=== PATIENT | male | born 1960 | race Caucasian/White ===

== ENCOUNTER 2017-02-07 20:12 | Inpatient (IN) | payer MEDICARE, MEDICAID ==
[2017-02-07 21:12] LABS: % BASOPHILS 2.5 % (0.0-2.0); % EOSINOPHILS 2.1 % (0.0-5.0); % LYMPHOCYTES 35.1 % (20.0-50.0); % MONOCYTES 5.8 % (2.0-10.0); % NEUTROPHILS 54.5 % (40.0-80.0); HEMATOCRIT 42.3 % (39.0-49.0); HEMOGLOBIN 13.8 gm/dL (13.2-17.3); MEAN CELL VOLUME 81.4 fl (80-99); MEAN CORPUSCULAR HEMOGLOBIN 26.5 pg (26.0-30.0); MEAN CORPUSCULAR HGB CONC 32.6 pg (28.0-36.0); MEAN PLATELET VOLUME 9.4 fl; NEUTROPHILE ABSOLUTE 3.2 Th/cmm (1.8-8.0); PLATELET COUNT 195 Th/cmm (150-400); RED CELL DISTRIBUTION WIDTH 14.1 % (11.5-20.0); WHITE BLOOD COUNT 5.7 Th/cmm (4.8-10.8)
--- NOTE | 2017-02-07 21:29 | ED Physician Chart ---
ED Chief Complaint/HPI - Patient Information Date Seen:: 02/07/17 Time Seen:: 21:20 Chief Complaint:: refusing care History of Present Illness:: refusing care and increased agitation at SNF Allergies:: Allergies Allergy/AdvReac Type Severity Reaction Status Date / Time No Known Allergies Allergy Verified 02/07/17 21:11 Vitals:: Vital Signs - 8 hr 02/07/17 20:30 Temp 97.9 F HR 75 RR 18 BP 114/85 O2 Sat % 96 Historian:: Medical Records Review:: Nurse's Note Reviewed, Transfer documents Reviewed ED Review of Systems - Review of Systems General/Constitutional: No fever, No chills Skin: No skin lesions Head: No headache Eyes: No loss of vision ENT: No earache Neck: No neck pain GI: No nausea, No vomiting Musculoskeletal: No bone or joint pain Psychiatric: Prior psych history Hematopoietic: No bruising, No lymphadenopathy Allergic/Immuno: No urticaria Neurological: No syncope ED Past Medical History - Past Medical History Past Medical History: HTN, PUD/GERD, Seizures, Other (quadriplegia) Family History: Other (no available) Social History: Care Facility Surgical History: other (unknown) Psychiatricy History: Depression, Schizophrenia Medication: Reviewed Family Medical History - Family Member Mother History Unknown: Yes ED Physical Exam - Physical Examination General/Constitutional: Awake, Well-developed, well-nourished, Alert Other Gen/Cons comments:: does not answer questions Head: Atraumatic Eyes: Lids, conjuctiva normal, PERRL Skin: No rash ENMT: External ears, nose nl Neck: No mass Respiratory: Nl effort/Exclusion, Clear to Auscultation Other Cardio Vascular comments:: heart sounds faint; pulse regular GI: No tenderness/rebounding/guarding, No organomegaly Other Extremities comments:: contracture of hands Other Neuro/Psych comments:: non verbal Misc: Normal back ED Labs/Radiology/EKG Results - Lab Results Results: Laboratory Results - last 24 hr 02/07/17 02/07/17 21:00 21:00 WBC 5.7 RBC 5.20 Hgb 13.8 Hct 42.3 MCV 81.4 MCH 26.5 MCHC Differential 32.6 RDW 14.1 Plt Count 195 MPV 9.4 Neutrophils % 54.5 Lymphocytes % 35.1 Monocytes % 5.8 Eosinophils % 2.1 Basophils % 2.5 H Sodium 134 L Potassium 3.5 Chloride 106 Carbon Dioxide 24.9 Anion Gap 6.6 L BUN 16 Creatinine 0.5 L Est GFR ( Amer) > 60.0 Est GFR (Non-Af Amer) > 60.0 BUN/Creatinine Ratio 32.0 Glucose 95 Calcium 9.2 Total Bilirubin 0.6 AST 21 ALT 11 Alkaline Phosphatase 76 Total Protein 7.4 Albumin 3.8 L Globulin 3.6 Albumin/Globulin Ratio 1.1 Triglycerides 62 Cholesterol 133 LDL Cholesterol Direct 97 HDL Cholesterol 31 - EKG Interpretations Rate & Rhythm: NSR; rate 92 Howells: normal ED Septic Shock - . Is Septic Shock (SBP<90, OR Lactate>4 mmol\L) present?: No - <6hrs of presentation: Vital Signs: Vital Signs - 8 hr 02/07/17 20:30 Temp 97.9 F HR 75 RR 18 BP 114/85 O2 Sat % 96 ED Reassessment (Disposition) - Reassessment Reassessment Condition:: Unchanged - Diagnosis Diagnosis:: schizophrenia; refusal of care; combative behavior; spastic quadriplegia - Patient Disposition Admitted to:: [facility] Admitting Medical Physician:: Wanda James Admitting Psych Physician:: Tracie Mccord Condition at Disposition:: Stable, Unchanged
[2017-02-07 21:36] LABS: ALB/GLOB RATIO 1.1 (1.0-1.8); ALKALINE PHOSPHATASE 76 U/L (34-104); ANION GAP 6.6 (7.0-16.0); BILIRUBIN,TOTAL 0.6 mg/dL (0.3-1.0); BUN - UREA NITROGEN 16 mg/dL (7-25); CALCIUM SERUM 9.2 mg/dL (8.6-10.3); CARBON DIOXIDE 24.9 mEq/L (21.0-31.0); CHLORIDE 106 mEq/L (98-107); CHOLESTEROL 133 mg/dL (<200); CREATININE - SERUM 0.5 mg/dL (0.7-1.3); GLUCOSE 95 mg/dL (70-105); POTASSIUM SERUM 3.5 mEq/L (3.5-5.1); SGOT 21 U/L (13-39); SGPT/ALT 11 U/L (7-52); SODIUM SERUM 134 mEq/L (136-145); TRIGLYCERIDES 62 mg/dL (<150)
[2017-02-07 22:59] VITALS: BP 132/78
[2017-02-07] MEDS ORDERED: Maalox 30 mL Cup PO PRN (23:08)
[2017-02-07] MEDS ORDERED: Fleet Enema 135 mL RC PRN (23:11)
--- NOTE | 2017-02-08 14:45 | Psychosocial Evaluation ---
DATE OF SERVICE: 02/08/2017 IDENTIFYING INFORMATION: The patient is a 56-year-old male. CHIEF COMPLAINT: No answer. HISTORY OF PRESENT ILLNESS: The patient was referred from a nursing facility because of agitation. The patient was a poor historian, unable to carry out conversation or telling me why he is here or answer any question, though his eyes were open and he was able to look at me, but would not answer any of my question. Apparently, has a history of being on psych medication including Depakote, Tegretol, and Seroquel and ____ of this medications were discontinued. I am not sure exactly why. The patient himself was unable to tell me and his next of kin actually is a cousin so. PAST PSYCHIATRIC HISTORY: Seemed like psychosis and mood disorder. ALLERGIES: The patient has no known drug allergies. MEDICATIONS: I do not see him on any specific medication for any medical reasons. FAMILY AND SOCIAL HISTORY: Unobtainable. It seems like this patient has no family. I am not sure if he is having children or . We have a next of kin of being a cousin. MENTAL STATUS EXAMINATION: The patient is appropriately dressed, not well groomed. He looked disheveled, disorganized, internally preoccupied, would not answer any of my question. He is unpredictable, impulsive, and agitated at times. Unable to participate in memory testing. Unable to test his memory as he was uncooperative. I am not sure about how his sleep and appetite. He would not answer questions regarding suicidal ideation or homicidal ideation. His insight and judgment are questionable. IMPRESSION: AXIS I: Bipolar disorder and psychosis, not otherwise specified, probably dementia. MEDICAL DIAGNOSES: Deferred to the medical doctor. I am not sure if patient has a history of seizure disorder, so I would start him on Depakote and Tegretol. We will do group therapy, milieu therapy, individual therapy. ESTIMATED LENGTH OF STAY: 3-7 days. DISCHARGE CRITERIA: Decreasing agitation, able to take care of himself. After discharge, outpatient treatment. JOB# [id number]
--- NOTE | 2017-02-09 01:51 | History & Physical ---
ADMIT DATE: 02/07/2017 HISTORY OF PRESENT ILLNESS: The patient is a 56-year-old male with a long history of depression, seizure disorder and admitted to Geropsych Department at [facility] under Dr. Mccord's service for evaluation and treatment. Apparently the patient has a history of bipolar disorder and psychosis. The patient has been very confused, agitated. No chest pain, no shortness of breath, no nausea, no vomiting. PAST MEDICAL HISTORY: Bipolar disorder, seizure disorder. PAST SURGICAL HISTORY: No recent surgery. ALLERGIES: None. MEDICATIONS: Follow admission reconciliation. SOCIAL HISTORY: No smoking, alcohol or drug use. FAMILY HISTORY: Noncontributory. REVIEW OF SYSTEMS: CARDIOVASCULAR SYSTEM: No coronary artery disease. ENDOCRINE SYSTEM: No diabetes or thyroid problem. GASTROINTESTINAL SYSTEM: No upper or lower gastrointestinal bleed. NEUROLOGICAL SYSTEM: No seizure. He has history of seizure disorder, bipolar disorder. MUSCULOSKELETAL SYSTEM: No muscular dystrophy. HEMATOLOGIC SYSTEM: No bleeding tendencies. RESPIRATORY SYSTEM: No asthma. GENITOURINARY: No dysuria or hematuria. PHYSICAL EXAMINATION: GENERAL: He is awake, alert, mildly confused. VITAL SIGNS: Temperature 97.6, heart rate 92, blood pressure 116/76. HEENT: Normocephalic. Pupils reacting to light and accommodation. Sclerae clear. NECK: Supple. Negative for lymphadenopathy, JVD or bruit. CHEST: Bilateral normal. No rhonchi or wheezing. HEART: S1, S2 normal. No murmur or gallop. ABDOMEN: Soft, bowel sounds positive. EXTREMITIES: No edema. NEUROLOGIC: Awake, alert, mildly confused. LABORATORY DATA: White blood ____, hemoglobin is 13.8, hematocrit 42.3, platelets 195. Sodium 134, potassium 3.5, BUN 16, creatinine 0.5. ASSESSMENT: 1.Seizure disorder. 2.Bipolar disorder. 3.Depression. PLAN: The patient was admitted to the hospital under Dr. Mccord's service. MEDICAL PROBLEMS ADDRESSED DURING HOSPITALIZATION: Bipolar disorder. MEDICAL PROBLEMS TO BE ADDRESSED AT DISCHARGE: Seizure disorder. The patient is medically stable for activity. Thank you, Dr. Mccord, for asking me to see your patient. JOB# [id number]
--- NOTE | 2017-02-09 20:39 | Internal Medicine Prog Note ---
Internal Medicine Subjective - Subjective Service Date: 02/09/17 Patient seen and examined:: with staff Patient is:: awake, verbal, in bed, confused Per staff patient has:: no adverse event Internal Medicine Objective - Results Result Diagrams: 02/07/17 21:00 02/07/17 21:00 Recent Labs: Laboratory Last Values WBC 5.7 Th/cmm (4.8-10.8) 02/07/17 21:00 RBC 5.20 Mil/cmm (4.30-5.70) 02/07/17 21:00 Hgb 13.8 gm/dL (13.2-17.3) 02/07/17 21:00 Hct 42.3 % (39.0-49.0) 02/07/17 21:00 MCV 81.4 fl (80-99) 02/07/17 21:00 MCH 26.5 pg (26.0-30.0) 02/07/17 21:00 MCHC Differential 32.6 pg (28.0-36.0) 02/07/17 21:00 RDW 14.1 % (11.5-20.0) 02/07/17 21:00 Plt Count 195 Th/cmm (150-400) 02/07/17 21:00 MPV 9.4 fl 02/07/17 21:00 Neutrophils % 54.5 % (40.0-80.0) 02/07/17 21:00 Lymphocytes % 35.1 % (20.0-50.0) 02/07/17 21:00 Monocytes % 5.8 % (2.0-10.0) 02/07/17 21:00 Eosinophils % 2.1 % (0.0-5.0) 02/07/17 21:00 Basophils % 2.5 % (0.0-2.0) H 02/07/17 21:00 Sodium 134 mEq/L (136-145) L 02/07/17 21:00 Potassium 3.5 mEq/L (3.5-5.1) 02/07/17 21:00 Chloride 106 mEq/L (98-107) 02/07/17 21:00 Carbon Dioxide 24.9 mEq/L (21.0-31.0) 02/07/17 21:00 Anion Gap 6.6 (7.0-16.0) L 02/07/17 21:00 BUN 16 mg/dL (7-25) 02/07/17 21:00 Creatinine 0.5 mg/dL (0.7-1.3) L 02/07/17 21:00 Est GFR ( Amer) > 60.0 ml/min (>90) 02/07/17 21:00 Est GFR (Non-Af Amer) > 60.0 ml/min 02/07/17 21:00 BUN/Creatinine Ratio 32.0 02/07/17 21:00 Glucose 95 mg/dL (70-105) 02/07/17 21:00 Calcium 9.2 mg/dL (8.6-10.3) 02/07/17 21:00 Total Bilirubin 0.6 mg/dL (0.3-1.0) 02/07/17 21:00 AST 21 U/L (13-39) 02/07/17 21:00 ALT 11 U/L (7-52) 02/07/17 21:00 Alkaline Phosphatase 76 U/L (34-104) 02/07/17 21:00 Total Protein 7.4 gm/dL (6.0-8.3) 02/07/17 21:00 Albumin 3.8 gm/dL (4.2-5.5) L 02/07/17 21:00 Globulin 3.6 gm/dL 02/07/17 21:00 Albumin/Globulin Ratio 1.1 (1.0-1.8) 02/07/17 21:00 Triglycerides 62 mg/dL (<150) 02/07/17 21:00 Cholesterol 133 mg/dL (<200) 02/07/17 21:00 LDL Cholesterol Direct 97 mg/dL (75-193) 02/07/17 21:00 HDL Cholesterol 31 mg/dL (23-92) 02/07/17 21:00 TSH 4.20 uIU/ml (0.34-5.60) 02/07/17 21:00 RPR NONREACTIVE (NONREACTIVE) 02/07/17 21:00 - Physical Exam Vitals and I&O: Vital Signs Temp 97.6 F 02/09/17 14:00 Pulse 94 02/09/17 14:00 Resp 20 02/09/17 14:00 BP 130/84 02/09/17 14:00 Pulse Ox 94 09/09/17 14:00 Intake & Output 02/09/17 02/09/17 02/10/17 06:59 18:59 06:59 Intake Total 1800 Balance 1800 Intake: Oral 1800 Other: # Voids 2 3 # Bowel Movements 0 1 Active Medications: Current Medications Acetaminophen (Tylenol) 650 mg PO Q6H PRN PRN Reason: Mild Pain/Headache/T above 101 Stop: 04/08/17 23:07 Al Hydrox/Mg Hydrox/Simethicone (Maalox) 30 ml PO Q6H PRN PRN Reason: Dyspepsia Stop: 04/08/17 23:07 Carbamazepine (Tegretol) 200 mg PO TID TAMIKO PRN Reason: Protocol Stop: 04/09/17 13:59 Last Admin: 02/09/17 13:27 Dose: 200 mg Lorazepam (Ativan) 1 mg PO Q6H PRN; Protocol PRN Reason: Anxiety/Agitation Stop: 04/08/17 23:07 Magnesium Hydroxide (Milk Of Magnesia) 30 ml PO HS PRN PRN Reason: Constipation Stop: 04/08/17 23:07 Quetiapine Fumarate (Seroquel) 50 mg PO HS TAMIKO PRN Reason: Protocol Stop: 04/09/17 20:59 Last Admin: 02/08/17 21:11 Dose: 50 mg Sodium Phosphate (Fleet Enema) 135 ml RC Q48H PRN PRN Reason: Constipation Stop: 04/08/17 23:10 Valproate Sodium (Depakene) 750 mg PO BID TAMIKO PRN Reason: Protocol Stop: 04/09/17 16:59 Last Admin: 02/09/17 17:57 Dose: Not Given Zolpidem Tartrate (Ambien) 5 mg PO HS PRN PRN Reason: Insomnia Stop: 04/08/17 23:07 General: alert, appears older HEENT: NC/AT, PERRLA, EOMI, anicteric sclerae, throat clear Neck: Supple, No thyromegaly, +2 carotid pulse wo bruit, No LAD, + JVD Cardiovascular: Normal S1, Normal S2, without murmur Abdomen: soft, non-tender, non-distended Neurological: no change Internal Medicine Assmt/Plan - Assessment Assessment: 1.SEIZURE DISORDER. 2.DEMENTIA. - Plan Plan: CONTINUE ON CURRENT MEDICATION AND DIET.
--- NOTE | 2017-02-10 20:55 | Progress Notes ---
DATE: 02/09/2017 Case was discussed with staff of the patient, reviewed records. The patient continues to be in bed. He continues to be staring on the ceiling. The patient is still unable to carry on a conversation or participate in a meaningful conversation. He is reported to be selective about his medications. No side effects of the medications, no sedation, no nausea, no extrapyramidal symptoms. We will try to prompt him to take his medications. He would not answer any of my questions or tell me what would he take or what he would not take. I will work with the patient in group therapy, milieu therapy, and adjust medication as needed. JOB# [id number]
--- NOTE | 2017-02-10 21:43 | Internal Medicine Prog Note ---
Internal Medicine Subjective - Subjective Service Date: 02/10/17 Patient seen and examined:: with staff (THE PATIENT DID NOT HAVE URIN,BUT HE IS EATING WELL AND DRINKING FLUID.) Patient is:: awake, verbal, in bed, confused Per staff patient has:: no adverse event Internal Medicine Objective - Results Result Diagrams: 02/07/17 21:00 02/07/17 21:00 Recent Labs: Laboratory Last Values WBC 5.7 Th/cmm (4.8-10.8) 02/07/17 21:00 RBC 5.20 Mil/cmm (4.30-5.70) 02/07/17 21:00 Hgb 13.8 gm/dL (13.2-17.3) 02/07/17 21:00 Hct 42.3 % (39.0-49.0) 02/07/17 21:00 MCV 81.4 fl (80-99) 02/07/17 21:00 MCH 26.5 pg (26.0-30.0) 02/07/17 21:00 MCHC Differential 32.6 pg (28.0-36.0) 02/07/17 21:00 RDW 14.1 % (11.5-20.0) 02/07/17 21:00 Plt Count 195 Th/cmm (150-400) 02/07/17 21:00 MPV 9.4 fl 02/07/17 21:00 Neutrophils % 54.5 % (40.0-80.0) 02/07/17 21:00 Lymphocytes % 35.1 % (20.0-50.0) 02/07/17 21:00 Monocytes % 5.8 % (2.0-10.0) 02/07/17 21:00 Eosinophils % 2.1 % (0.0-5.0) 02/07/17 21:00 Basophils % 2.5 % (0.0-2.0) H 02/07/17 21:00 Sodium 134 mEq/L (136-145) L 02/07/17 21:00 Potassium 3.5 mEq/L (3.5-5.1) 02/07/17 21:00 Chloride 106 mEq/L (98-107) 02/07/17 21:00 Carbon Dioxide 24.9 mEq/L (21.0-31.0) 02/07/17 21:00 Anion Gap 6.6 (7.0-16.0) L 02/07/17 21:00 BUN 16 mg/dL (7-25) 02/07/17 21:00 Creatinine 0.5 mg/dL (0.7-1.3) L 02/07/17 21:00 Est GFR ( Amer) > 60.0 ml/min (>90) 02/07/17 21:00 Est GFR (Non-Af Amer) > 60.0 ml/min 02/07/17 21:00 BUN/Creatinine Ratio 32.0 02/07/17 21:00 Glucose 95 mg/dL (70-105) 02/07/17 21:00 Calcium 9.2 mg/dL (8.6-10.3) 02/07/17 21:00 Total Bilirubin 0.6 mg/dL (0.3-1.0) 02/07/17 21:00 AST 21 U/L (13-39) 02/07/17 21:00 ALT 11 U/L (7-52) 02/07/17 21:00 Alkaline Phosphatase 76 U/L (34-104) 02/07/17 21:00 Total Protein 7.4 gm/dL (6.0-8.3) 02/07/17 21:00 Albumin 3.8 gm/dL (4.2-5.5) L 02/07/17 21:00 Globulin 3.6 gm/dL 02/07/17 21:00 Albumin/Globulin Ratio 1.1 (1.0-1.8) 02/07/17 21:00 Triglycerides 62 mg/dL (<150) 02/07/17 21:00 Cholesterol 133 mg/dL (<200) 02/07/17 21:00 LDL Cholesterol Direct 97 mg/dL (75-193) 02/07/17 21:00 HDL Cholesterol 31 mg/dL (23-92) 02/07/17 21:00 TSH 4.20 uIU/ml (0.34-5.60) 02/07/17 21:00 RPR NONREACTIVE (NONREACTIVE) 02/07/17 21:00 - Physical Exam Vitals and I&O: Vital Signs Temp 97.6 F 02/10/17 14:10 Pulse 99 02/10/17 14:10 Resp 20 02/10/17 20:00 BP 116/72 02/10/17 14:10 Pulse Ox 98 02/10/17 14:10 Intake & Output 02/10/17 02/10/17 02/11/17 06:59 18:59 06:59 Intake Total 120 800 Output Total 400 Balance 120 400 Intake: Oral 120 800 Output: Urine 400 Other: # Voids 3 # Bowel Movements 0 Active Medications: Current Medications Acetaminophen (Tylenol) 650 mg PO Q6H PRN PRN Reason: Mild Pain/Headache/T above 101 Stop: 04/08/17 23:07 Al Hydrox/Mg Hydrox/Simethicone (Maalox) 30 ml PO Q6H PRN PRN Reason: Dyspepsia Stop: 04/08/17 23:07 Carbamazepine (Tegretol) 200 mg PO TID TAMIKO PRN Reason: Protocol Stop: 04/09/17 13:59 Last Admin: 02/10/17 20:24 Dose: 200 mg Lorazepam (Ativan) 1 mg PO Q6H PRN; Protocol PRN Reason: Anxiety/Agitation Stop: 04/08/17 23:07 Magnesium Hydroxide (Milk Of Magnesia) 30 ml PO HS PRN PRN Reason: Constipation Stop: 04/08/17 23:07 Quetiapine Fumarate (Seroquel) 50 mg PO HS TAMIKO PRN Reason: Protocol Stop: 04/09/17 20:59 Last Admin: 02/10/17 20:24 Dose: 50 mg Sodium Phosphate (Fleet Enema) 135 ml RC Q48H PRN PRN Reason: Constipation Stop: 04/08/17 23:10 Valproate Sodium (Depakene) 750 mg PO BID TAMIKO PRN Reason: Protocol Stop: 04/09/17 16:59 Last Admin: 02/10/17 16:32 Dose: 750 mg Zolpidem Tartrate (Ambien) 5 mg PO HS PRN PRN Reason: Insomnia Stop: 04/08/17 23:07 General: alert, appears older HEENT: NC/AT, PERRLA, EOMI, anicteric sclerae, throat clear Neck: Supple, No thyromegaly, +2 carotid pulse wo bruit, No LAD, + JVD Cardiovascular: Normal S1, Normal S2, without murmur Abdomen: soft, non-tender, non-distended Neurological: no change Internal Medicine Assmt/Plan - Assessment Assessment: 1.SEIZURE DISORDER. 2.DEMENTIA. - Plan Plan: CONTINUE ON CURRENT MEDICATION AND DIET.CBC AND CMP IN AM.
--- NOTE | 2017-02-11 03:40 | Progress Notes ---
DATE: 02/10/2017 The case was discussed with staff of the patient, reviewed records. The patient continues to stay in bed. Unable to participate in a meaningful conversation and still staring. No side effects with the medication, no sedation, no nausea, no extrapyramidal symptoms. He is on Seroquel 50 mg at bedtime, Depakote 750 mg twice a day. His TSH is within normal range. He has a low sodium level. CBC within normal range. We will continue to work with the patient in group therapy, milieu therapy, and adjust medication as needed. JOB# [id number]
[2017-02-11 06:30] LABS: % BASOPHILS 0.1 % (0.0-2.0); % EOSINOPHILS 3.8 % (0.0-5.0); % LYMPHOCYTES 43.6 % (20.0-50.0); % MONOCYTES 5.9 % (2.0-10.0); % NEUTROPHILS 46.6 % (40.0-80.0); HEMOGLOBIN 12.7 gm/dL (13.2-17.3); MEAN CELL VOLUME 81.4 fl (80-99); MEAN CORPUSCULAR HEMOGLOBIN 27.2 pg (26.0-30.0); MEAN CORPUSCULAR HGB CONC 33.5 pg (28.0-36.0); NEUTROPHILE ABSOLUTE 2.7 Th/cmm (1.8-8.0); PLATELET COUNT 167 Th/cmm (150-400); RED BLOOD COUNT 4.67 Mil/cmm (4.30-5.70); RED CELL DISTRIBUTION WIDTH 14.6 % (11.5-20.0); WHITE BLOOD COUNT 5.7 Th/cmm (4.8-10.8)
[2017-02-11 06:49] LABS: ALKALINE PHOSPHATASE 61 U/L (34-104); ANION GAP 6.5 (7.0-16.0); BILIRUBIN,TOTAL 0.3 mg/dL (0.3-1.0); BUN - UREA NITROGEN 13 mg/dL (7-25); BUN/CREATININE RATIO 18.6; CALCIUM SERUM 8.3 mg/dL (8.6-10.3); CARBON DIOXIDE 26.6 mEq/L (21.0-31.0); CHLORIDE 107 mEq/L (98-107); CREATININE - SERUM 0.7 mg/dL (0.7-1.3); GLUCOSE 96 mg/dL (70-105); POTASSIUM SERUM 4.1 mEq/L (3.5-5.1); SGOT 16 U/L (13-39); SGPT/ALT 9 U/L (7-52); SODIUM SERUM 136 mEq/L (136-145)
--- NOTE | 2017-02-12 03:38 | Progress Notes ---
DATE: 02/11/2017 Case discussed with staff of the patient, reviewed records. Also tried to call his cousin as that is the only number we have for the family member, . His name is ____ and we got back this is not a working number. We checked his face sheets from the senior care where he came in, it is the same number. The patient continues to lack communication although some staff report that they were able to talk to him, but when I try to talk to him myself, he would not. He is taking his medications with no side effects. He is looking disheveled, disorganized, internally preoccupied, unable to make safe plan for self-care. Sleeping well and eating well. No side effects with the medication, no sedation, no nausea, no extrapyramidal symptoms. We will continue to work with the patient in group therapy, milieu therapy, and adjust medication as needed. JOB# [id number]
--- NOTE | 2017-02-12 13:09 | Internal Medicine Prog Note ---
Internal Medicine Subjective - Subjective Service Date: 02/12/17 Patient seen and examined:: with staff Patient is:: awake, verbal, in bed, confused Per staff patient has:: no adverse event Internal Medicine Objective - Results Result Diagrams: 02/11/17 06:19 02/11/17 06:19 Recent Labs: Laboratory Last Values WBC 5.7 Th/cmm (4.8-10.8) 02/11/17 06:19 RBC 4.67 Mil/cmm (4.30-5.70) 02/11/17 06:19 Hgb 12.7 gm/dL (13.2-17.3) L 02/11/17 06:19 Hct 38.0 % (39.0-49.0) L D 02/11/17 06:19 MCV 81.4 fl (80-99) 02/11/17 06:19 MCH 27.2 pg (26.0-30.0) 02/11/17 06:19 MCHC Differential 33.5 pg (28.0-36.0) 02/11/17 06:19 RDW 14.6 % (11.5-20.0) 02/11/17 06:19 Plt Count 167 Th/cmm (150-400) 02/11/17 06:19 MPV 9.0 fl 02/11/17 06:19 Neutrophils % 46.6 % (40.0-80.0) 02/11/17 06:19 Lymphocytes % 43.6 % (20.0-50.0) 02/11/17 06:19 Monocytes % 5.9 % (2.0-10.0) 02/11/17 06:19 Eosinophils % 3.8 % (0.0-5.0) 02/11/17 06:19 Basophils % 0.1 % (0.0-2.0) 02/11/17 06:19 Sodium 136 mEq/L (136-145) 02/11/17 06:19 Potassium 4.1 mEq/L (3.5-5.1) 02/11/17 06:19 Chloride 107 mEq/L (98-107) 02/11/17 06:19 Carbon Dioxide 26.6 mEq/L (21.0-31.0) 02/11/17 06:19 Anion Gap 6.5 (7.0-16.0) L 02/11/17 06:19 BUN 13 mg/dL (7-25) 02/11/17 06:19 Creatinine 0.7 mg/dL (0.7-1.3) 02/11/17 06:19 Est GFR ( Amer) > 60.0 ml/min (>90) 02/11/17 06:19 Est GFR (Non-Af Amer) > 60.0 ml/min 02/11/17 06:19 BUN/Creatinine Ratio 18.6 02/11/17 06:19 Glucose 96 mg/dL (70-105) 02/11/17 06:19 Calcium 8.3 mg/dL (8.6-10.3) L 02/11/17 06:19 Total Bilirubin 0.3 mg/dL (0.3-1.0) 02/11/17 06:19 AST 16 U/L (13-39) 02/11/17 06:19 ALT 9 U/L (7-52) 02/11/17 06:19 Alkaline Phosphatase 61 U/L (34-104) 02/11/17 06:19 Total Protein 6.5 gm/dL (6.0-8.3) 02/11/17 06:19 Albumin 3.3 gm/dL (4.2-5.5) L 02/11/17 06:19 Globulin 3.2 gm/dL 02/11/17 06:19 Albumin/Globulin Ratio 1.0 (1.0-1.8) 02/11/17 06:19 Triglycerides 62 mg/dL (<150) 02/07/17 21:00 Cholesterol 133 mg/dL (<200) 02/07/17 21:00 LDL Cholesterol Direct 97 mg/dL (75-193) 02/07/17 21:00 HDL Cholesterol 31 mg/dL (23-92) 02/07/17 21:00 TSH 4.20 uIU/ml (0.34-5.60) 02/07/17 21:00 RPR NONREACTIVE (NONREACTIVE) 02/07/17 21:00 - Physical Exam Vitals and I&O: Vital Signs Temp 98.0 F 02/12/17 05:57 Pulse 87 02/12/17 05:57 Resp 20 02/12/17 05:57 BP 96/54 02/12/17 05:57 Pulse Ox 98 02/12/17 05:57 Intake & Output 02/11/17 02/12/17 02/12/17 18:59 06:59 18:59 Intake Total 900 300 Balance 900 300 Weight (lbs) 77.61 kg Intake: Oral 900 300 Other: # Voids 3 2 # Bowel Movements 1 0 Active Medications: Current Medications Acetaminophen (Tylenol) 650 mg PO Q6H PRN PRN Reason: Mild Pain/Headache/T above 101 Stop: 04/08/17 23:07 Last Admin: 02/11/17 09:54 Dose: 650 mg Al Hydrox/Mg Hydrox/Simethicone (Maalox) 30 ml PO Q6H PRN PRN Reason: Dyspepsia Stop: 04/08/17 23:07 Carbamazepine (Tegretol) 200 mg PO TID TAMIKO PRN Reason: Protocol Stop: 04/09/17 13:59 Last Admin: 02/12/17 08:24 Dose: 200 mg Lorazepam (Ativan) 1 mg PO Q6H PRN; Protocol PRN Reason: Anxiety/Agitation Stop: 04/08/17 23:07 Magnesium Hydroxide (Milk Of Magnesia) 30 ml PO HS PRN PRN Reason: Constipation Stop: 04/08/17 23:07 Quetiapine Fumarate (Seroquel) 50 mg PO HS TAMIKO PRN Reason: Protocol Stop: 04/09/17 20:59 Last Admin: 02/11/17 20:35 Dose: 50 mg Sodium Phosphate (Fleet Enema) 135 ml RC Q48H PRN PRN Reason: Constipation Stop: 04/08/17 23:10 Valproate Sodium (Depakene) 750 mg PO BID TAMIKO PRN Reason: Protocol Stop: 04/09/17 16:59 Last Admin: 02/12/17 08:25 Dose: 750 mg Zolpidem Tartrate (Ambien) 5 mg PO HS PRN PRN Reason: Insomnia Stop: 04/08/17 23:07 General: alert, appears older HEENT: NC/AT, PERRLA, EOMI, anicteric sclerae, throat clear Neck: Supple, No thyromegaly, +2 carotid pulse wo bruit, No LAD, + JVD Cardiovascular: Normal S1, Normal S2, without murmur Abdomen: soft, non-tender, non-distended Neurological: no change Internal Medicine Assmt/Plan - Assessment Assessment: 1.SEIZURE DISORDER. 2.DEMENTIA. - Plan Plan: CONTINUE ON CURRENT MEDICATION AND DIET. Nutritional Asmnt/Malnutr-PDOC - Dietary Evaluation Malnutrition Findings (Please click <Entered> for more info): Nutritional Asmnt/Malnutrition Start: 02/11/17 18: 33 Text: Status: Complete Freq: Document 02/11/17 18:33 GSUN (Rec: 02/11/17 18:38 [id number] [email or web address]) Nutritional Asmnt/Malnutrition Patient General Information Nutritional Screening Moderate Risk Screening Diagnosis Bipolar disorder Pertinent Medical Hx/Surgical Hx Bipolar disorder, seizure disorder, depression Subjective Information 56 year old male from SNF. Pt was pleasant, appeared guarded , did not provide much meaningful responses, remained silent for most questions. Pt appeared overweight. Avg PO intake 75-100% of meals since adm, meeting nutritional needs . Pt deneid nutritional concerns at this time. Current Diet Order/ Nutrition Support DAVIS Pertinent Medications Maalox, MOM, Seroquel, Fleet Enema Pertinent Labs Reviewed. Nutritional Hx/Data Height 1.75 m Height (Calculated Centimeters) 175.3 Current Weight (lbs) 77.61 kg Weight (Calculated Kilograms) 77.6 Weight (Calculated Grams) 03943.7 Tichnor Body Weight 160 Weight Status Approriate GI Symptoms Usual diet at home [facility]: DAVIS , regular Skin Integrity/Comment: Clif Miranda. Skin intact. Current %PO Good (75-100%) Estimated Nutritional Goals BEE in Kcals: Using Current wt Calories/Kcals/Kg CBW 171.1lb/77.8kg Kcals Calculated 1945-2334kcal (25-30kcal/kg) Protein: Using Current wt Protein Calculated 78g (1g/kg) Fluid: ml 1945-2334ml (1ml/kcal) Nutritional Problem 1. Problem Problem No nutritional problem at this time. Intervention/Recommendation Comments 1. Continue with current diet order. Avg PO intake is adequate. Expected Outcomes/Goals Expected Outcomes/Goals 1. PO intake continue to meet at least 75% of estimated nutritional needs.
--- NOTE | 2017-02-13 02:07 | Progress Notes ---
DATE: 02/12/2017 Case was discussed with staff of the patient, reviewed records. The patient today was able to talk he said he is fine. He was saying yes or no and not caring lengthy conversation. He is unpredictable and still internally preoccupied, still looking disheveled. Still unable to make safe plan for self-care. No side effects with the medication, no sedation, no nausea, no extrapyramidal symptoms, and I did try to call his family to get more information, since he is not talking. However, the number, we have is incorrect. We will continue to work with the patient in group therapy, milieu therapy, adjust medication as needed. JOB# [id number]
--- NOTE | 2017-02-13 03:56 | Admit Criteria Form ---
Admit Criteria Forms - Admit Criteria Diagnosis: PSYCHIATRIC DISORDERS (Place 'X' for any and all applicable criteria): Ongoing inpatient care may be needed for 1 or more of the following(1)(2)(3)(4)( 6)(7)(8): [ ]I. Danger to self or others not manageable at lower level of care. [ ]II. Grave disability (eg, inability to perform self care necessary at lower level of care) [X ]III. Agitation or inappropriate behavior interfering with care for primary condition (eg, attempting to discontinue lines or drains prematurely, unable to cooperate with respiratory care) [ ]IV. Severe disability or disorder indicated by ALL of the following: [ ]a) Severe behavioral health disorder-related symptoms or condition indicated by 1 or more of the following: [ ]i) Severe problem with cognition, memory, judgment, or impulse control [ ]ii) Severe clinical manifestations (eg, hallucinations, delusions, other acute psychotic symptoms, katarina, extreme agitation or anxiety) [ ]b) Patient management at lower level of care is not feasible until acute intervention or modification is initiated. Extended stay beyond goal length of stay for the primary condition may be needed until ALLof the following are present(1)(2)(3)(4)(722)(23): [ ]a) Danger to self or others is absent or manageable at lower level of care [ ]b) Behavior crisis management, including physical or chemical restraints, is required and is not available at a lower level of care. [ ]c) Behavioral symptoms (e.g., agitation, somnolence, inappropriate behavior) are present, and are not manageable at a lower level of care. [ ]d) Patient cannot understand follow-up treatment and crisis plan. [ ]e) Provider and supports are sufficiently available at lower level of care. [ ]f) Patient can participate (e.g., verify absence of plan for harm) and is in needed of monitoring. The original [facility] [employer] content created by [facility] has been revised. The portions of the content which have been revised are identified through the use of italic text or in bold, and [facility] has neither reviewed nor approved the modified material. All other unmodified content is copyright [facility]. Please see references footnoted in the original [facility] edition 2017 Admit Criteria Met?: Yes
--- NOTE | 2017-02-13 21:22 | Internal Medicine Prog Note ---
Internal Medicine Subjective - Subjective Service Date: 02/13/17 Patient seen and examined:: without staff Patient is:: awake, verbal, in bed, confused Per staff patient has:: no adverse event Internal Medicine Objective - Results Result Diagrams: 02/11/17 06:19 02/11/17 06:19 Recent Labs: Laboratory Last Values WBC 5.7 Th/cmm (4.8-10.8) 02/11/17 06:19 RBC 4.67 Mil/cmm (4.30-5.70) 02/11/17 06:19 Hgb 12.7 gm/dL (13.2-17.3) L 02/11/17 06:19 Hct 38.0 % (39.0-49.0) L D 02/11/17 06:19 MCV 81.4 fl (80-99) 02/11/17 06:19 MCH 27.2 pg (26.0-30.0) 02/11/17 06:19 MCHC Differential 33.5 pg (28.0-36.0) 02/11/17 06:19 RDW 14.6 % (11.5-20.0) 02/11/17 06:19 Plt Count 167 Th/cmm (150-400) 02/11/17 06:19 MPV 9.0 fl 02/11/17 06:19 Neutrophils % 46.6 % (40.0-80.0) 02/11/17 06:19 Lymphocytes % 43.6 % (20.0-50.0) 02/11/17 06:19 Monocytes % 5.9 % (2.0-10.0) 02/11/17 06:19 Eosinophils % 3.8 % (0.0-5.0) 02/11/17 06:19 Basophils % 0.1 % (0.0-2.0) 02/11/17 06:19 Sodium 136 mEq/L (136-145) 02/11/17 06:19 Potassium 4.1 mEq/L (3.5-5.1) 02/11/17 06:19 Chloride 107 mEq/L (98-107) 02/11/17 06:19 Carbon Dioxide 26.6 mEq/L (21.0-31.0) 02/11/17 06:19 Anion Gap 6.5 (7.0-16.0) L 02/11/17 06:19 BUN 13 mg/dL (7-25) 02/11/17 06:19 Creatinine 0.7 mg/dL (0.7-1.3) 02/11/17 06:19 Est GFR ( Amer) > 60.0 ml/min (>90) 02/11/17 06:19 Est GFR (Non-Af Amer) > 60.0 ml/min 02/11/17 06:19 BUN/Creatinine Ratio 18.6 02/11/17 06:19 Glucose 96 mg/dL (70-105) 02/11/17 06:19 Calcium 8.3 mg/dL (8.6-10.3) L 02/11/17 06:19 Total Bilirubin 0.3 mg/dL (0.3-1.0) 02/11/17 06:19 AST 16 U/L (13-39) 02/11/17 06:19 ALT 9 U/L (7-52) 02/11/17 06:19 Alkaline Phosphatase 61 U/L (34-104) 02/11/17 06:19 Total Protein 6.5 gm/dL (6.0-8.3) 02/11/17 06:19 Albumin 3.3 gm/dL (4.2-5.5) L 02/11/17 06:19 Globulin 3.2 gm/dL 02/11/17 06:19 Albumin/Globulin Ratio 1.0 (1.0-1.8) 02/11/17 06:19 Triglycerides 62 mg/dL (<150) 02/07/17 21:00 Cholesterol 133 mg/dL (<200) 02/07/17 21:00 LDL Cholesterol Direct 97 mg/dL (75-193) 02/07/17 21:00 HDL Cholesterol 31 mg/dL (23-92) 02/07/17 21:00 TSH 4.20 uIU/ml (0.34-5.60) 02/07/17 21:00 Valproic Acid 44.3 ug/mL (50.0-100.0) L 02/13/17 09:44 RPR NONREACTIVE (NONREACTIVE) 02/07/17 21:00 - Physical Exam Vitals and I&O: Vital Signs Temp 97.2 F 02/13/17 20:00 Pulse 80 02/13/17 20:00 Resp 20 02/13/17 20:00 BP 128/79 02/13/17 20:00 Pulse Ox 98 02/13/17 20:00 Intake & Output 02/13/17 02/13/17 02/14/17 06:59 18:59 06:59 Intake Total 120 Balance 120 Intake: Oral 120 Other: # Voids 3 # Bowel Movements 0 Active Medications: Current Medications Acetaminophen (Tylenol) 650 mg PO Q6H PRN PRN Reason: Mild Pain/Headache/T above 101 Stop: 04/08/17 23:07 Last Admin: 02/12/17 23:16 Dose: 650 mg Al Hydrox/Mg Hydrox/Simethicone (Maalox) 30 ml PO Q6H PRN PRN Reason: Dyspepsia Stop: 04/08/17 23:07 Carbamazepine (Tegretol) 200 mg PO TID TAMIKO PRN Reason: Protocol Stop: 04/09/17 13:59 Last Admin: 02/13/17 20:32 Dose: 200 mg Lorazepam (Ativan) 1 mg PO Q6H PRN; Protocol PRN Reason: Anxiety/Agitation Stop: 04/08/17 23:07 Magnesium Hydroxide (Milk Of Magnesia) 30 ml PO HS PRN PRN Reason: Constipation Stop: 04/08/17 23:07 Quetiapine Fumarate (Seroquel) 50 mg PO HS TAMIKO PRN Reason: Protocol Stop: 04/09/17 20:59 Last Admin: 02/13/17 20:32 Dose: 50 mg Sodium Phosphate (Fleet Enema) 135 ml RC Q48H PRN PRN Reason: Constipation Stop: 04/08/17 23:10 Valproate Sodium (Depakene) 750 mg PO BID TAMIKO PRN Reason: Protocol Stop: 04/09/17 16:59 Last Admin: 02/13/17 16:05 Dose: Not Given Zolpidem Tartrate (Ambien) 5 mg PO HS PRN PRN Reason: Insomnia Stop: 04/08/17 23:07 General: alert, appears older HEENT: NC/AT, PERRLA, EOMI, anicteric sclerae, throat clear Neck: Supple, No thyromegaly, +2 carotid pulse wo bruit, No LAD, + JVD Cardiovascular: Normal S1, Normal S2, without murmur Abdomen: soft, non-tender, non-distended Neurological: no change Internal Medicine Assmt/Plan - Assessment Assessment: 1.SEIZURE DISORDER. 2.DEMENTIA. - Plan Plan: CONTINUE ON CURRENT MEDICATION AND DIET. Nutritional Asmnt/Malnutr-PDOC - Dietary Evaluation Malnutrition Findings (Please click <Entered> for more info): Nutritional Asmnt/Malnutrition Start: 02/11/17 18: 33 Text: Status: Complete Freq: Document 02/11/17 18:33 GSUN (Rec: 02/11/17 18:38 GSUN [email or web address]) Nutritional Asmnt/Malnutrition Patient General Information Nutritional Screening Moderate Risk Screening Diagnosis Bipolar disorder Pertinent Medical Hx/Surgical Hx Bipolar disorder, seizure disorder, depression Subjective Information 56 year old male from SNF. Pt was pleasant, appeared guarded , did not provide much meaningful responses, remained silent for most questions. Pt appeared overweight. Avg PO intake 75-100% of meals since adm, meeting nutritional needs . Pt deneid nutritional concerns at this time. Current Diet Order/ Nutrition Support DAVIS Pertinent Medications Maalox, MOM, Seroquel, Fleet Enema Pertinent Labs Reviewed. Nutritional Hx/Data Height 1.75 m Height (Calculated Centimeters) 175.3 Current Weight (lbs) 77.61 kg Weight (Calculated Kilograms) 77.6 Weight (Calculated Grams) 44809.7 [place] Body Weight 160 Weight Status Approriate GI Symptoms Usual diet at home [facility]: DAVIS , regular Skin Integrity/Comment: Clif 14. Skin intact. Current %PO Good (75-100%) Estimated Nutritional Goals BEE in Kcals: Using Current wt Calories/Kcals/Kg CBW 171.1lb/77.8kg Kcals Calculated 1945-2334kcal (25-30kcal/kg) Protein: Using Current wt Protein Calculated 78g (1g/kg) Fluid: ml 1945-2334ml (1ml/kcal) Nutritional Problem 1. Problem Problem No nutritional problem at this time. Intervention/Recommendation Comments 1. Continue with current diet order. Avg PO intake is adequate. Expected Outcomes/Goals Expected Outcomes/Goals 1. PO intake continue to meet at least 75% of estimated nutritional needs.
--- NOTE | 2017-02-13 23:52 | Progress Notes ---
DATE: 02/13/2017 Case was discussed with staff of the patient, reviewed records. The patient is doing better. He is now able to speak and he is appropriate, though he is confused. He is not sure of the date. He is sleeping better, eating better, compliant with the medication with no side effects. No sedation, no nausea, no extrapyramidal symptoms. Apparently, his cousin called, who has the power of energy attorney, left a new number. So, I will try to call him and get more information on the patient and I will be checking his Depakote level to make sure it is appropriate and also the patient is taking the medication and we will continue to work with the patient in group therapy, milieu therapy and adjust the medication as needed. JOB# [id number]
--- NOTE | 2017-02-14 21:56 | Internal Medicine Prog Note ---
Internal Medicine Subjective - Subjective Service Date: 02/14/17 Patient seen and examined:: without staff Patient is:: awake, verbal, in bed, confused Per staff patient has:: no adverse event Internal Medicine Objective - Results Result Diagrams: 02/11/17 06:19 02/11/17 06:19 Recent Labs: Laboratory Last Values WBC 5.7 Th/cmm (4.8-10.8) 02/11/17 06:19 RBC 4.67 Mil/cmm (4.30-5.70) 02/11/17 06:19 Hgb 12.7 gm/dL (13.2-17.3) L 02/11/17 06:19 Hct 38.0 % (39.0-49.0) L D 02/11/17 06:19 MCV 81.4 fl (80-99) 02/11/17 06:19 MCH 27.2 pg (26.0-30.0) 02/11/17 06:19 MCHC Differential 33.5 pg (28.0-36.0) 02/11/17 06:19 RDW 14.6 % (11.5-20.0) 02/11/17 06:19 Plt Count 167 Th/cmm (150-400) 02/11/17 06:19 MPV 9.0 fl 02/11/17 06:19 Neutrophils % 46.6 % (40.0-80.0) 02/11/17 06:19 Lymphocytes % 43.6 % (20.0-50.0) 02/11/17 06:19 Monocytes % 5.9 % (2.0-10.0) 02/11/17 06:19 Eosinophils % 3.8 % (0.0-5.0) 02/11/17 06:19 Basophils % 0.1 % (0.0-2.0) 02/11/17 06:19 Sodium 136 mEq/L (136-145) 02/11/17 06:19 Potassium 4.1 mEq/L (3.5-5.1) 02/11/17 06:19 Chloride 107 mEq/L (98-107) 02/11/17 06:19 Carbon Dioxide 26.6 mEq/L (21.0-31.0) 02/11/17 06:19 Anion Gap 6.5 (7.0-16.0) L 02/11/17 06:19 BUN 13 mg/dL (7-25) 02/11/17 06:19 Creatinine 0.7 mg/dL (0.7-1.3) 02/11/17 06:19 Est GFR ( Amer) > 60.0 ml/min (>90) 02/11/17 06:19 Est GFR (Non-Af Amer) > 60.0 ml/min 02/11/17 06:19 BUN/Creatinine Ratio 18.6 02/11/17 06:19 Glucose 96 mg/dL (70-105) 02/11/17 06:19 Calcium 8.3 mg/dL (8.6-10.3) L 02/11/17 06:19 Total Bilirubin 0.3 mg/dL (0.3-1.0) 02/11/17 06:19 AST 16 U/L (13-39) 02/11/17 06:19 ALT 9 U/L (7-52) 02/11/17 06:19 Alkaline Phosphatase 61 U/L (34-104) 02/11/17 06:19 Total Protein 6.5 gm/dL (6.0-8.3) 02/11/17 06:19 Albumin 3.3 gm/dL (4.2-5.5) L 02/11/17 06:19 Globulin 3.2 gm/dL 02/11/17 06:19 Albumin/Globulin Ratio 1.0 (1.0-1.8) 02/11/17 06:19 Triglycerides 62 mg/dL (<150) 02/07/17 21:00 Cholesterol 133 mg/dL (<200) 02/07/17 21:00 LDL Cholesterol Direct 97 mg/dL (75-193) 02/07/17 21:00 HDL Cholesterol 31 mg/dL (23-92) 02/07/17 21:00 TSH 4.20 uIU/ml (0.34-5.60) 02/07/17 21:00 Valproic Acid 44.3 ug/mL (50.0-100.0) L 02/13/17 09:44 RPR NONREACTIVE (NONREACTIVE) 02/07/17 21:00 - Physical Exam Vitals and I&O: Vital Signs Temp 98.8 F 02/14/17 21:22 Pulse 84 02/14/17 21:22 Resp 19 02/14/17 21:22 BP 116/65 02/14/17 21:22 Pulse Ox 97 02/14/17 21:22 Intake & Output 02/14/17 02/14/17 02/15/17 06:59 18:59 06:59 Intake Total 120 900 Balance 120 900 Intake: Oral 120 900 Other: # Voids 3 2 Active Medications: Current Medications Acetaminophen (Tylenol) 650 mg PO Q6H PRN PRN Reason: Mild Pain/Headache/T above 101 Stop: 04/08/17 23:07 Last Admin: 02/14/17 09:10 Dose: 650 mg Al Hydrox/Mg Hydrox/Simethicone (Maalox) 30 ml PO Q6H PRN PRN Reason: Dyspepsia Stop: 04/08/17 23:07 Carbamazepine (Tegretol) 200 mg PO TID TAMIKO PRN Reason: Protocol Stop: 04/09/17 13:59 Last Admin: 02/14/17 21:01 Dose: 200 mg Divalproex Sodium (Depakote Sprinkle) 750 mg PO BID TAMIKO PRN Reason: Protocol Stop: 04/16/17 08:59 Lorazepam (Ativan) 1 mg PO Q6H PRN; Protocol PRN Reason: Anxiety/Agitation Stop: 04/08/17 23:07 Magnesium Hydroxide (Milk Of Magnesia) 30 ml PO HS PRN PRN Reason: Constipation Stop: 04/08/17 23:07 Quetiapine Fumarate (Seroquel) 75 mg PO HS TAMIKO PRN Reason: Protocol Stop: 04/15/17 12:34 Last Admin: 02/14/17 20:38 Dose: 75 mg Sodium Phosphate (Fleet Enema) 135 ml RC Q48H PRN PRN Reason: Constipation Stop: 04/08/17 23:10 Zolpidem Tartrate (Ambien) 5 mg PO HS PRN PRN Reason: Insomnia Stop: 04/08/17 23:07 General: alert, appears older HEENT: NC/AT, PERRLA, EOMI, anicteric sclerae, throat clear Neck: Supple, No thyromegaly, +2 carotid pulse wo bruit, No LAD, + JVD Cardiovascular: Normal S1, Normal S2, without murmur Abdomen: soft, non-tender, non-distended Neurological: no change Internal Medicine Assmt/Plan - Assessment Assessment: 1.SEIZURE DISORDER. 2.DEMENTIA. - Plan Plan: CONTINUE ON CURRENT MEDICATION AND DIET. Nutritional Asmnt/Malnutr-PDOC - Dietary Evaluation Malnutrition Findings (Please click <Entered> for more info): Nutritional Asmnt/Malnutrition Start: 02/11/17 18: 33 Text: Status: Complete Freq: Document 02/11/17 18:33 GSUN (Rec: 02/11/17 18:38 GSUN [email or web address]) Nutritional Asmnt/Malnutrition Patient General Information Nutritional Screening Moderate Risk Screening Diagnosis Bipolar disorder Pertinent Medical Hx/Surgical Hx Bipolar disorder, seizure disorder, depression Subjective Information 56 year old male from SNF. Pt was pleasant, appeared guarded , did not provide much meaningful responses, remained silent for most questions. Pt appeared overweight. Avg PO intake 75-100% of meals since adm, meeting nutritional needs . Pt deneid nutritional concerns at this time. Current Diet Order/ Nutrition Support DAVIS Pertinent Medications Maalox, MOM, Seroquel, Fleet Enema Pertinent Labs Reviewed. Nutritional Hx/Data Height 1.75 m Height (Calculated Centimeters) 175.3 Current Weight (lbs) 77.61 kg Weight (Calculated Kilograms) 77.6 Weight (Calculated Grams) 23260.7 [place] Body Weight 160 Weight Status Approriate GI Symptoms Usual diet at home [facility]: DAVIS , regular Skin Integrity/Comment: Clif Miranda. Skin intact. Current %PO Good (75-100%) Estimated Nutritional Goals BEE in Kcals: Using Current wt Calories/Kcals/Kg CBW 171.1lb/77.8kg Kcals Calculated 1945-2334kcal (25-30kcal/kg) Protein: Using Current wt Protein Calculated 78g (1g/kg) Fluid: ml 1945-2334ml (1ml/kcal) Nutritional Problem 1. Problem Problem No nutritional problem at this time. Intervention/Recommendation Comments 1. Continue with current diet order. Avg PO intake is adequate. Expected Outcomes/Goals Expected Outcomes/Goals 1. PO intake continue to meet at least 75% of estimated nutritional needs.
--- NOTE | 2017-02-15 09:43 | Progress Notes ---
DATE: Case was discussed with staff of the patient, reviewed records to try to call his cousin many times on the new number he gave which is [phone] number. I get the message saying that the voicemail is not setup. The patient continues to stay in bed, continues to be unpredictable, impulsive. Today, he would not answer any of my questions. He is compliant with the medication with no side effects, no sedation, no nausea, no extrapyramidal symptoms and I will be increasing his Seroquel dose to 75 mg at bedtime and so far, no side effects, no sedation, no nausea, no extrapyramidal symptoms. We will continue to work with the patient in group therapy, milieu therapy, adjust the medication as needed. JOB# [id number]
--- NOTE | 2017-02-15 15:16 | Internal Medicine Prog Note ---
Internal Medicine Subjective - Subjective Service Date: 02/15/17 Patient seen and examined:: without staff Patient is:: awake, verbal, in bed, confused Per staff patient has:: no adverse event Internal Medicine Objective - Results Result Diagrams: 02/11/17 06:19 02/11/17 06:19 Recent Labs: Laboratory Last Values WBC 5.7 Th/cmm (4.8-10.8) 02/11/17 06:19 RBC 4.67 Mil/cmm (4.30-5.70) 02/11/17 06:19 Hgb 12.7 gm/dL (13.2-17.3) L 02/11/17 06:19 Hct 38.0 % (39.0-49.0) L D 02/11/17 06:19 MCV 81.4 fl (80-99) 02/11/17 06:19 MCH 27.2 pg (26.0-30.0) 02/11/17 06:19 MCHC Differential 33.5 pg (28.0-36.0) 02/11/17 06:19 RDW 14.6 % (11.5-20.0) 02/11/17 06:19 Plt Count 167 Th/cmm (150-400) 02/11/17 06:19 MPV 9.0 fl 02/11/17 06:19 Neutrophils % 46.6 % (40.0-80.0) 02/11/17 06:19 Lymphocytes % 43.6 % (20.0-50.0) 02/11/17 06:19 Monocytes % 5.9 % (2.0-10.0) 02/11/17 06:19 Eosinophils % 3.8 % (0.0-5.0) 02/11/17 06:19 Basophils % 0.1 % (0.0-2.0) 02/11/17 06:19 Sodium 136 mEq/L (136-145) 02/11/17 06:19 Potassium 4.1 mEq/L (3.5-5.1) 02/11/17 06:19 Chloride 107 mEq/L (98-107) 02/11/17 06:19 Carbon Dioxide 26.6 mEq/L (21.0-31.0) 02/11/17 06:19 Anion Gap 6.5 (7.0-16.0) L 02/11/17 06:19 BUN 13 mg/dL (7-25) 02/11/17 06:19 Creatinine 0.7 mg/dL (0.7-1.3) 02/11/17 06:19 Est GFR ( Amer) > 60.0 ml/min (>90) 02/11/17 06:19 Est GFR (Non-Af Amer) > 60.0 ml/min 02/11/17 06:19 BUN/Creatinine Ratio 18.6 02/11/17 06:19 Glucose 96 mg/dL (70-105) 02/11/17 06:19 Calcium 8.3 mg/dL (8.6-10.3) L 02/11/17 06:19 Total Bilirubin 0.3 mg/dL (0.3-1.0) 02/11/17 06:19 AST 16 U/L (13-39) 02/11/17 06:19 ALT 9 U/L (7-52) 02/11/17 06:19 Alkaline Phosphatase 61 U/L (34-104) 02/11/17 06:19 Total Protein 6.5 gm/dL (6.0-8.3) 02/11/17 06:19 Albumin 3.3 gm/dL (4.2-5.5) L 02/11/17 06:19 Globulin 3.2 gm/dL 02/11/17 06:19 Albumin/Globulin Ratio 1.0 (1.0-1.8) 02/11/17 06:19 Triglycerides 62 mg/dL (<150) 02/07/17 21:00 Cholesterol 133 mg/dL (<200) 02/07/17 21:00 LDL Cholesterol Direct 97 mg/dL (75-193) 02/07/17 21:00 HDL Cholesterol 31 mg/dL (23-92) 02/07/17 21:00 TSH 4.20 uIU/ml (0.34-5.60) 02/07/17 21:00 Valproic Acid 44.3 ug/mL (50.0-100.0) L 02/13/17 09:44 RPR NONREACTIVE (NONREACTIVE) 02/07/17 21:00 - Physical Exam Vitals and I&O: Vital Signs Temp 98.3 F 02/15/17 15:01 Pulse 93 02/15/17 15:01 Resp 18 02/15/17 15:01 BP 126/74 02/15/17 15:01 Pulse Ox 97 02/15/17 15:01 Intake & Output 02/14/17 02/15/17 02/15/17 18:59 06:59 18:59 Intake Total 900 120 Balance 900 120 Intake: Oral 900 120 Other: # Voids 2 3 Active Medications: Current Medications Acetaminophen (Tylenol) 650 mg PO Q6H PRN PRN Reason: Mild Pain/Headache/T above 101 Stop: 04/08/17 23:07 Last Admin: 02/14/17 09:10 Dose: 650 mg Al Hydrox/Mg Hydrox/Simethicone (Maalox) 30 ml PO Q6H PRN PRN Reason: Dyspepsia Stop: 04/08/17 23:07 Carbamazepine (Tegretol) 200 mg PO TID TAMIKO PRN Reason: Protocol Stop: 04/09/17 13:59 Last Admin: 02/15/17 14:06 Dose: 200 mg Divalproex Sodium (Depakote Sprinkle) 750 mg PO BID TAMIKO PRN Reason: Protocol Stop: 04/16/17 08:59 Last Admin: 02/15/17 08:39 Dose: 750 mg Lorazepam (Ativan) 1 mg PO Q6H PRN; Protocol PRN Reason: Anxiety/Agitation Stop: 04/08/17 23:07 Magnesium Hydroxide (Milk Of Magnesia) 30 ml PO HS PRN PRN Reason: Constipation Stop: 04/08/17 23:07 Quetiapine Fumarate (Seroquel) 100 mg PO HS TAMIKO PRN Reason: Protocol Stop: 04/16/17 20:59 Sodium Phosphate (Fleet Enema) 135 ml RC Q48H PRN PRN Reason: Constipation Stop: 04/08/17 23:10 Zolpidem Tartrate (Ambien) 5 mg PO HS PRN PRN Reason: Insomnia Stop: 04/08/17 23:07 General: alert, appears older HEENT: NC/AT, PERRLA, EOMI, anicteric sclerae, throat clear Neck: Supple, No thyromegaly, +2 carotid pulse wo bruit, No LAD, + JVD Cardiovascular: Normal S1, Normal S2, without murmur Abdomen: soft, non-tender, non-distended Neurological: no change Internal Medicine Assmt/Plan - Assessment Assessment: 1.SEIZURE DISORDER. 2.DEMENTIA. - Plan Plan: CONTINUE ON CURRENT MEDICATION AND DIET. Nutritional Asmnt/Malnutr-PDOC - Dietary Evaluation Malnutrition Findings (Please click <Entered> for more info): Nutritional Asmnt/Malnutrition Start: 02/11/17 18: 33 Text: Status: Complete Freq: Document 02/11/17 18:33 GSUN (Rec: 02/11/17 18:38 GSUN [email or web address]) Nutritional Asmnt/Malnutrition Patient General Information Nutritional Screening Moderate Risk Screening Diagnosis Bipolar disorder Pertinent Medical Hx/Surgical Hx Bipolar disorder, seizure disorder, depression Subjective Information 56 year old male from SNF. Pt was pleasant, appeared guarded , did not provide much meaningful responses, remained silent for most questions. Pt appeared overweight. Avg PO intake 75-100% of meals since adm, meeting nutritional needs . Pt deneid nutritional concerns at this time. Current Diet Order/ Nutrition Support DAVIS Pertinent Medications Maalox, MOM, Seroquel, Fleet Enema Pertinent Labs Reviewed. Nutritional Hx/Data Height 1.75 m Height (Calculated Centimeters) 175.3 Current Weight (lbs) 77.61 kg Weight (Calculated Kilograms) 77.6 Weight (Calculated Grams) 21393.7 [place] Body Weight 160 Weight Status Approriate GI Symptoms Usual diet at home [facility]: DAVIS , regular Skin Integrity/Comment: Clif Miranda. Skin intact. Current %PO Good (75-100%) Estimated Nutritional Goals BEE in Kcals: Using Current wt Calories/Kcals/Kg CBW 171.1lb/77.8kg Kcals Calculated 1945-2334kcal (25-30kcal/kg) Protein: Using Current wt Protein Calculated 78g (1g/kg) Fluid: ml 1945-2334ml (1ml/kcal) Nutritional Problem 1. Problem Problem No nutritional problem at this time. Intervention/Recommendation Comments 1. Continue with current diet order. Avg PO intake is adequate. Expected Outcomes/Goals Expected Outcomes/Goals 1. PO intake continue to meet at least 75% of estimated nutritional needs.
[2017-02-15] MEDS: Magnesium Hydroxide (MOM) 30 mL UDC PO PRN (20:59)
--- NOTE | 2017-02-15 23:18 | Progress Notes ---
DATE: 02/15/2017 SUBJECTIVE: Case was discussed with staff of the patient, reviewed records. The patient today was able to talk to me. The staff report he is picky of what he talks to. He is still looking disheveled, disorganized, internally preoccupied. Continues to be unable to carry a lengthy conversation, saying yes or no. He has been compliant with the medication with no side effects, no sedation, no nausea. PLAN OF CARE: I will be increasing his dose of Seroquel further to 100 mg at bedtime. We will continue to work with the patient in group therapy, milieu therapy, adjust the medication as needed. JOB# [id number]
[2017-02-16] MEDS: POLYETHYLENE GLYCOL 3350 17 GM PACK PO SCH (09:35)
--- NOTE | 2017-02-16 16:46 | General Progress Note ---
Subjective - Review of Systems Service Date: 02/16/17 Subjective: RESTING IN BED AWAKE BUT VERBALLY NON RESPONDING NO DISTRESS Objective - Results Result Diagrams: 02/11/17 06:19 02/11/17 06:19 Recent Labs: Laboratory Last Values WBC 5.7 Th/cmm (4.8-10.8) 02/11/17 06:19 RBC 4.67 Mil/cmm (4.30-5.70) 02/11/17 06:19 Hgb 12.7 gm/dL (13.2-17.3) L 02/11/17 06:19 Hct 38.0 % (39.0-49.0) L D 02/11/17 06:19 MCV 81.4 fl (80-99) 02/11/17 06:19 MCH 27.2 pg (26.0-30.0) 02/11/17 06:19 MCHC Differential 33.5 pg (28.0-36.0) 02/11/17 06:19 RDW 14.6 % (11.5-20.0) 02/11/17 06:19 Plt Count 167 Th/cmm (150-400) 02/11/17 06:19 MPV 9.0 fl 02/11/17 06:19 Neutrophils % 46.6 % (40.0-80.0) 02/11/17 06:19 Lymphocytes % 43.6 % (20.0-50.0) 02/11/17 06:19 Monocytes % 5.9 % (2.0-10.0) 02/11/17 06:19 Eosinophils % 3.8 % (0.0-5.0) 02/11/17 06:19 Basophils % 0.1 % (0.0-2.0) 02/11/17 06:19 Sodium 136 mEq/L (136-145) 02/11/17 06:19 Potassium 4.1 mEq/L (3.5-5.1) 02/11/17 06:19 Chloride 107 mEq/L (98-107) 02/11/17 06:19 Carbon Dioxide 26.6 mEq/L (21.0-31.0) 02/11/17 06:19 Anion Gap 6.5 (7.0-16.0) L 02/11/17 06:19 BUN 13 mg/dL (7-25) 02/11/17 06:19 Creatinine 0.7 mg/dL (0.7-1.3) 02/11/17 06:19 Est GFR ( Amer) > 60.0 ml/min (>90) 02/11/17 06:19 Est GFR (Non-Af Amer) > 60.0 ml/min 02/11/17 06:19 BUN/Creatinine Ratio 18.6 02/11/17 06:19 Glucose 96 mg/dL (70-105) 02/11/17 06:19 Calcium 8.3 mg/dL (8.6-10.3) L 02/11/17 06:19 Total Bilirubin 0.3 mg/dL (0.3-1.0) 02/11/17 06:19 AST 16 U/L (13-39) 02/11/17 06:19 ALT 9 U/L (7-52) 02/11/17 06:19 Alkaline Phosphatase 61 U/L (34-104) 02/11/17 06:19 Total Protein 6.5 gm/dL (6.0-8.3) 02/11/17 06:19 Albumin 3.3 gm/dL (4.2-5.5) L 02/11/17 06:19 Globulin 3.2 gm/dL 02/11/17 06:19 Albumin/Globulin Ratio 1.0 (1.0-1.8) 02/11/17 06:19 Triglycerides 62 mg/dL (<150) 02/07/17 21:00 Cholesterol 133 mg/dL (<200) 02/07/17 21:00 LDL Cholesterol Direct 97 mg/dL (75-193) 02/07/17 21:00 HDL Cholesterol 31 mg/dL (23-92) 02/07/17 21:00 TSH 4.20 uIU/ml (0.34-5.60) 02/07/17 21:00 Valproic Acid 44.3 ug/mL (50.0-100.0) L 02/13/17 09:44 RPR NONREACTIVE (NONREACTIVE) 02/07/17 21:00 - Physical Exam Vitals and I&O: Vital Signs Temp 97.9 F 02/16/17 15:46 Pulse 99 02/16/17 15:46 Resp 19 02/16/17 15:46 BP 119/72 02/16/17 15:46 Pulse Ox 98 02/16/17 15:46 Intake & Output 02/15/17 02/16/17 02/16/17 18:59 06:59 18:59 Intake Total 900 240 Balance 900 240 Intake: Oral 900 240 Other: # Voids 3 3 Active Medications: Current Medications Acetaminophen (Tylenol) 650 mg PO Q6H PRN PRN Reason: Mild Pain/Headache/T above 101 Stop: 04/08/17 23:07 Last Admin: 02/14/17 09:10 Dose: 650 mg Al Hydrox/Mg Hydrox/Simethicone (Maalox) 30 ml PO Q6H PRN PRN Reason: Dyspepsia Stop: 04/08/17 23:07 Carbamazepine (Tegretol) 200 mg PO TID TAMIKO PRN Reason: Protocol Stop: 04/09/17 13:59 Last Admin: 02/16/17 09:35 Dose: 200 mg Divalproex Sodium (Depakote Sprinkle) 750 mg PO BID TAMIKO PRN Reason: Protocol Stop: 04/16/17 08:59 Last Admin: 02/16/17 09:35 Dose: 750 mg Lorazepam (Ativan) 1 mg PO Q6H PRN; Protocol PRN Reason: Anxiety/Agitation Stop: 04/08/17 23:07 Magnesium Hydroxide (Milk Of Magnesia) 30 ml PO HS PRN PRN Reason: Constipation Stop: 04/08/17 23:07 Last Admin: 02/15/17 20:59 Dose: 30 ml Polyethylene Glycol (Miralax) 17 gm PO DAILY TAMIKO Stop: 04/17/17 08:59 Last Admin: 02/16/17 09:35 Dose: 17 gm Quetiapine Fumarate (Seroquel) 100 mg PO HS TAMIKO PRN Reason: Protocol Stop: 04/16/17 20:59 Last Admin: 02/15/17 20:58 Dose: 100 mg Sodium Phosphate (Fleet Enema) 135 ml RC Q48H PRN PRN Reason: Constipation Stop: 04/08/17 23:10 Zolpidem Tartrate (Ambien) 5 mg PO HS PRN PRN Reason: Insomnia Stop: 04/08/17 23:07 General: Alert, No acute distress HEENT: Atraumatic, PERRLA, EOMI Neck: Supple, JVD Cardiovascular: Regular rate, Normal S1, Normal S2 Lungs: Clear to auscultation Abdomen: Bowel sounds Assessment/Plan - Assessment Assessment: 1.SEIZURE DISORDER. 2.DEMENTIA. - Plan Plan: CONT CURRENT TREATMENT Nutritional Asmnt/Malnutr-PDOC - Dietary Evaluation Malnutrition Findings (Please click <Entered> for more info): Nutritional Asmnt/Malnutrition Start: 02/11/17 18: 33 Text: Status: Complete Freq: Document 02/11/17 18:33 GSUN (Rec: 02/11/17 18:38 GSUN [email or web address]) Nutritional Asmnt/Malnutrition Patient General Information Nutritional Screening Moderate Risk Screening Diagnosis Bipolar disorder Pertinent Medical Hx/Surgical Hx Bipolar disorder, seizure disorder, depression Subjective Information 56 year old male from SNF. Pt was pleasant, appeared guarded , did not provide much meaningful responses, remained silent for most questions. Pt appeared overweight. Avg PO intake 75-100% of meals since adm, meeting nutritional needs . Pt deneid nutritional concerns at this time. Current Diet Order/ Nutrition Support DAVIS Pertinent Medications Maalox, MOM, Seroquel, Fleet Enema Pertinent Labs Reviewed. Nutritional Hx/Data Height 1.75 m Height (Calculated Centimeters) 175.3 Current Weight (lbs) 77.61 kg Weight (Calculated Kilograms) 77.6 Weight (Calculated Grams) 76714.7 [place] Body Weight 160 Weight Status Approriate GI Symptoms Usual diet at home [facility]: DAVIS , regular Skin Integrity/Comment: Clif 14. Skin intact. Current %PO Good (75-100%) Estimated Nutritional Goals BEE in Kcals: Using Current wt Calories/Kcals/Kg CBW 171.1lb/77.8kg Kcals Calculated 1945-2334kcal (25-30kcal/kg) Protein: Using Current wt Protein Calculated 78g (1g/kg) Fluid: ml 1945-2334ml (1ml/kcal) Nutritional Problem 1. Problem Problem No nutritional problem at this time. Intervention/Recommendation Comments 1. Continue with current diet order. Avg PO intake is adequate. Expected Outcomes/Goals Expected Outcomes/Goals 1. PO intake continue to meet at least 75% of estimated nutritional needs.
--- NOTE | 2017-02-16 21:28 | Progress Notes ---
DATE: 02/16/2017 Dr. Garza is covering for Dr. Mccord. SUBJECTIVE: Chart reviewed and the patient interviewed. Also discussed the patient's condition with the staff and reviewed records and labs. The patient continued to be severely depressed. This patient also has a flat affect and the patient was staring at me without talking and without answering any of my questions. The patient also is still having difficulty expressing himself or expressing his feelings. Also, personal hygiene is still poor. Also, during my interview, the patient seems to be preoccupied and he refuses to answer any of the questions except few words. ASSESSMENT: The patient is still severely depressed and psychotic. TREATMENT PLAN: The patient continued to take Depakote 750 mg twice a day and Seroquel was increased yesterday to 100 mg at bedtime. We will continue same dose. Also, continue to work on his ineffective coping especially with his physical inabilities and being quadriplegic. Also, we will encourage patient to get out of isolation and to let staff take him to attend group therapy. [facility]# [id number]
--- NOTE | 2017-02-17 07:54 | General Progress Note ---
Subjective - Review of Systems Service Date: 02/17/17 Subjective: RESTING IN BED AWAKE BUT VERBALLY NON RESPONDING NO DISTRESS Objective - Results Result Diagrams: 02/11/17 06:19 02/11/17 06:19 Recent Labs: Laboratory Last Values WBC 5.7 Th/cmm (4.8-10.8) 02/11/17 06:19 RBC 4.67 Mil/cmm (4.30-5.70) 02/11/17 06:19 Hgb 12.7 gm/dL (13.2-17.3) L 02/11/17 06:19 Hct 38.0 % (39.0-49.0) L D 02/11/17 06:19 MCV 81.4 fl (80-99) 02/11/17 06:19 MCH 27.2 pg (26.0-30.0) 02/11/17 06:19 MCHC Differential 33.5 pg (28.0-36.0) 02/11/17 06:19 RDW 14.6 % (11.5-20.0) 02/11/17 06:19 Plt Count 167 Th/cmm (150-400) 02/11/17 06:19 MPV 9.0 fl 02/11/17 06:19 Neutrophils % 46.6 % (40.0-80.0) 02/11/17 06:19 Lymphocytes % 43.6 % (20.0-50.0) 02/11/17 06:19 Monocytes % 5.9 % (2.0-10.0) 02/11/17 06:19 Eosinophils % 3.8 % (0.0-5.0) 02/11/17 06:19 Basophils % 0.1 % (0.0-2.0) 02/11/17 06:19 Sodium 136 mEq/L (136-145) 02/11/17 06:19 Potassium 4.1 mEq/L (3.5-5.1) 02/11/17 06:19 Chloride 107 mEq/L (98-107) 02/11/17 06:19 Carbon Dioxide 26.6 mEq/L (21.0-31.0) 02/11/17 06:19 Anion Gap 6.5 (7.0-16.0) L 02/11/17 06:19 BUN 13 mg/dL (7-25) 02/11/17 06:19 Creatinine 0.7 mg/dL (0.7-1.3) 02/11/17 06:19 Est GFR ( Amer) > 60.0 ml/min (>90) 02/11/17 06:19 Est GFR (Non-Af Amer) > 60.0 ml/min 02/11/17 06:19 BUN/Creatinine Ratio 18.6 02/11/17 06:19 Glucose 96 mg/dL (70-105) 02/11/17 06:19 Calcium 8.3 mg/dL (8.6-10.3) L 02/11/17 06:19 Total Bilirubin 0.3 mg/dL (0.3-1.0) 02/11/17 06:19 AST 16 U/L (13-39) 02/11/17 06:19 ALT 9 U/L (7-52) 02/11/17 06:19 Alkaline Phosphatase 61 U/L (34-104) 02/11/17 06:19 Total Protein 6.5 gm/dL (6.0-8.3) 02/11/17 06:19 Albumin 3.3 gm/dL (4.2-5.5) L 02/11/17 06:19 Globulin 3.2 gm/dL 02/11/17 06:19 Albumin/Globulin Ratio 1.0 (1.0-1.8) 02/11/17 06:19 Triglycerides 62 mg/dL (<150) 02/07/17 21:00 Cholesterol 133 mg/dL (<200) 02/07/17 21:00 LDL Cholesterol Direct 97 mg/dL (75-193) 02/07/17 21:00 HDL Cholesterol 31 mg/dL (23-92) 02/07/17 21:00 TSH 4.20 uIU/ml (0.34-5.60) 02/07/17 21:00 Valproic Acid 44.3 ug/mL (50.0-100.0) L 02/13/17 09:44 RPR NONREACTIVE (NONREACTIVE) 02/07/17 21:00 - Physical Exam Vitals and I&O: Vital Signs Temp 98.1 F 02/17/17 06:38 Pulse 91 02/17/17 06:38 Resp 18 02/17/17 06:38 BP 100/65 02/17/17 06:38 Pulse Ox 97 02/17/17 06:38 Intake & Output 02/16/17 02/17/17 02/17/17 18:59 06:59 18:59 Intake Total 1000 600 Output Total 1301 Balance 1000 -701 Intake: Oral 1000 600 Output: Urine 1301 Other: # Voids 4 1 # Bowel Movements 0 Active Medications: Current Medications Acetaminophen (Tylenol) 650 mg PO Q6H PRN PRN Reason: Mild Pain/Headache/T above 101 Stop: 04/08/17 23:07 Last Admin: 02/14/17 09:10 Dose: 650 mg Al Hydrox/Mg Hydrox/Simethicone (Maalox) 30 ml PO Q6H PRN PRN Reason: Dyspepsia Stop: 04/08/17 23:07 Carbamazepine (Tegretol) 200 mg PO TID TAMIKO PRN Reason: Protocol Stop: 04/09/17 13:59 Last Admin: 02/16/17 21:22 Dose: 200 mg Divalproex Sodium (Depakote Sprinkle) 750 mg PO BID TAMIKO PRN Reason: Protocol Stop: 04/16/17 08:59 Last Admin: 02/16/17 17:24 Dose: 750 mg Lorazepam (Ativan) 1 mg PO Q6H PRN; Protocol PRN Reason: Anxiety/Agitation Stop: 04/08/17 23:07 Magnesium Hydroxide (Milk Of Magnesia) 30 ml PO HS PRN PRN Reason: Constipation Stop: 04/08/17 23:07 Last Admin: 02/15/17 20:59 Dose: 30 ml Polyethylene Glycol (Miralax) 17 gm PO DAILY TAMIKO Stop: 04/17/17 08:59 Last Admin: 02/16/17 09:35 Dose: 17 gm Quetiapine Fumarate (Seroquel) 100 mg PO HS TAMIKO PRN Reason: Protocol Stop: 04/16/17 20:59 Last Admin: 02/16/17 21:22 Dose: 100 mg Sodium Phosphate (Fleet Enema) 135 ml RC Q48H PRN PRN Reason: Constipation Stop: 04/08/17 23:10 Zolpidem Tartrate (Ambien) 5 mg PO HS PRN PRN Reason: Insomnia Stop: 04/08/17 23:07 General: Alert, No acute distress HEENT: Atraumatic, PERRLA, EOMI Neck: Supple, JVD Cardiovascular: Regular rate, Normal S1, Normal S2 Lungs: Clear to auscultation Abdomen: Bowel sounds Assessment/Plan - Assessment Assessment: 1.SEIZURE DISORDER. 2.DEMENTIA. - Plan Plan: CONT CURRENT TREATMENT Nutritional Asmnt/Malnutr-PDOC - Dietary Evaluation Malnutrition Findings (Please click <Entered> for more info): Nutritional Asmnt/Malnutrition Start: 02/11/17 18: 33 Text: Status: Complete Freq: Document 02/11/17 18:33 GSUN (Rec: 02/11/17 18:38 GSUN [email or web address]) Nutritional Asmnt/Malnutrition Patient General Information Nutritional Screening Moderate Risk Screening Diagnosis Bipolar disorder Pertinent Medical Hx/Surgical Hx Bipolar disorder, seizure disorder, depression Subjective Information 56 year old male from SNF. Pt was pleasant, appeared guarded , did not provide much meaningful responses, remained silent for most questions. Pt appeared overweight. Avg PO intake 75-100% of meals since adm, meeting nutritional needs . Pt deneid nutritional concerns at this time. Current Diet Order/ Nutrition Support DAVIS Pertinent Medications Maalox, MOM, Seroquel, Fleet Enema Pertinent Labs Reviewed. Nutritional Hx/Data Height 1.75 m Height (Calculated Centimeters) 175.3 Current Weight (lbs) 77.61 kg Weight (Calculated Kilograms) 77.6 Weight (Calculated Grams) 82987.7 [place] Body Weight 160 Weight Status Approriate GI Symptoms Usual diet at home [facility]: DAVIS , regular Skin Integrity/Comment: Clif 14. Skin intact. Current %PO Good (75-100%) Estimated Nutritional Goals BEE in Kcals: Using Current wt Calories/Kcals/Kg CBW 171.1lb/77.8kg Kcals Calculated 1945-2334kcal (25-30kcal/kg) Protein: Using Current wt Protein Calculated 78g (1g/kg) Fluid: ml 1945-2334ml (1ml/kcal) Nutritional Problem 1. Problem Problem No nutritional problem at this time. Intervention/Recommendation Comments 1. Continue with current diet order. Avg PO intake is adequate. Expected Outcomes/Goals Expected Outcomes/Goals 1. PO intake continue to meet at least 75% of estimated nutritional needs.
[2017-02-17] MEDS: POLYETHYLENE GLYCOL 3350 17 GM PACK PO SCH (08:11)
--- NOTE | 2017-02-17 20:14 | Progress Notes ---
DATE: 02/17/2017 SUBJECTIVE: Chart reviewed and the patient interviewed. Also discussed the patient's condition with the staff and reviewed records and labs. The patient continued to have flat affect and he is still in a severely depressed mood. The patient also is still having difficulty expressing himself and difficulty expressing his feelings because of his paraplegia. The patient also is withdrawn and guarded and did not answer my questions. He also still seems to be preoccupied and responding. ASSESSMENT: The patient is still severely depressed and withdrawn. TREATMENT PLAN: We will continue Depakote and Seroquel same dose. Also, continue to monitor his behavior and his condition closely. JOB# [id number]
[2017-02-18] MEDS: POLYETHYLENE GLYCOL 3350 17 GM PACK PO SCH (11:45)
--- NOTE | 2017-02-18 19:08 | Internal Medicine Prog Note ---
Internal Medicine Subjective - Subjective Service Date: 02/18/17 Patient seen and examined:: with staff (HE HAS LIMITED MOVEMENT OF UPPER AND LOWER EXTREMETES.) Patient is:: awake, verbal, in bed, confused Per staff patient has:: no adverse event Internal Medicine Objective - Results Result Diagrams: 02/11/17 06:19 02/11/17 06:19 Recent Labs: Laboratory Last Values WBC 5.7 Th/cmm (4.8-10.8) 02/11/17 06:19 RBC 4.67 Mil/cmm (4.30-5.70) 02/11/17 06:19 Hgb 12.7 gm/dL (13.2-17.3) L 02/11/17 06:19 Hct 38.0 % (39.0-49.0) L D 02/11/17 06:19 MCV 81.4 fl (80-99) 02/11/17 06:19 MCH 27.2 pg (26.0-30.0) 02/11/17 06:19 MCHC Differential 33.5 pg (28.0-36.0) 02/11/17 06:19 RDW 14.6 % (11.5-20.0) 02/11/17 06:19 Plt Count 167 Th/cmm (150-400) 02/11/17 06:19 MPV 9.0 fl 02/11/17 06:19 Neutrophils % 46.6 % (40.0-80.0) 02/11/17 06:19 Lymphocytes % 43.6 % (20.0-50.0) 02/11/17 06:19 Monocytes % 5.9 % (2.0-10.0) 02/11/17 06:19 Eosinophils % 3.8 % (0.0-5.0) 02/11/17 06:19 Basophils % 0.1 % (0.0-2.0) 02/11/17 06:19 Sodium 136 mEq/L (136-145) 02/11/17 06:19 Potassium 4.1 mEq/L (3.5-5.1) 02/11/17 06:19 Chloride 107 mEq/L (98-107) 02/11/17 06:19 Carbon Dioxide 26.6 mEq/L (21.0-31.0) 02/11/17 06:19 Anion Gap 6.5 (7.0-16.0) L 02/11/17 06:19 BUN 13 mg/dL (7-25) 02/11/17 06:19 Creatinine 0.7 mg/dL (0.7-1.3) 02/11/17 06:19 Est GFR ( Amer) > 60.0 ml/min (>90) 02/11/17 06:19 Est GFR (Non-Af Amer) > 60.0 ml/min 02/11/17 06:19 BUN/Creatinine Ratio 18.6 02/11/17 06:19 Glucose 96 mg/dL (70-105) 02/11/17 06:19 Calcium 8.3 mg/dL (8.6-10.3) L 02/11/17 06:19 Total Bilirubin 0.3 mg/dL (0.3-1.0) 02/11/17 06:19 AST 16 U/L (13-39) 02/11/17 06:19 ALT 9 U/L (7-52) 02/11/17 06:19 Alkaline Phosphatase 61 U/L (34-104) 02/11/17 06:19 Total Protein 6.5 gm/dL (6.0-8.3) 02/11/17 06:19 Albumin 3.3 gm/dL (4.2-5.5) L 02/11/17 06:19 Globulin 3.2 gm/dL 02/11/17 06:19 Albumin/Globulin Ratio 1.0 (1.0-1.8) 02/11/17 06:19 Triglycerides 62 mg/dL (<150) 02/07/17 21:00 Cholesterol 133 mg/dL (<200) 02/07/17 21:00 LDL Cholesterol Direct 97 mg/dL (75-193) 02/07/17 21:00 HDL Cholesterol 31 mg/dL (23-92) 02/07/17 21:00 TSH 4.20 uIU/ml (0.34-5.60) 02/07/17 21:00 Valproic Acid 34.8 ug/mL (50.0-100.0) L 02/18/17 13:10 Carbamazepine 6.7 ug/ml (4.0-12.0) 02/18/17 13:10 RPR NONREACTIVE (NONREACTIVE) 02/07/17 21:00 - Physical Exam Vitals and I&O: Vital Signs Temp 97.4 F 02/18/17 15:31 Pulse 92 02/18/17 15:31 Resp 21 02/18/17 15:31 BP 115/70 02/18/17 15:31 Pulse Ox 97 02/18/17 15:31 Intake & Output 02/18/17 02/18/17 02/19/17 06:59 18:59 06:59 Intake Total 180 2600 Balance 180 2600 Intake: Oral 180 2600 Other: # Voids 2 4 # Bowel Movements 1 0 Active Medications: Current Medications Acetaminophen (Tylenol) 650 mg PO Q6H PRN PRN Reason: Mild Pain/Headache/T above 101 Stop: 04/08/17 23:07 Last Admin: 02/17/17 17:03 Dose: 650 mg Al Hydrox/Mg Hydrox/Simethicone (Maalox) 30 ml PO Q6H PRN PRN Reason: Dyspepsia Stop: 04/08/17 23:07 Carbamazepine (Tegretol) 200 mg PO TID TAMIKO PRN Reason: Protocol Stop: 04/09/17 13:59 Last Admin: 02/18/17 18:07 Dose: Not Given Divalproex Sodium (Depakote Sprinkle) 750 mg PO BID TAMIKO PRN Reason: Protocol Stop: 04/16/17 08:59 Last Admin: 02/18/17 18:07 Dose: 750 mg Lorazepam (Ativan) 1 mg PO Q6H PRN; Protocol PRN Reason: Anxiety/Agitation Stop: 04/08/17 23:07 Magnesium Hydroxide (Milk Of Magnesia) 30 ml PO HS PRN PRN Reason: Constipation Stop: 04/08/17 23:07 Last Admin: 02/15/17 20:59 Dose: 30 ml Polyethylene Glycol (Miralax) 17 gm PO DAILY TAMIKO Stop: 04/17/17 08:59 Last Admin: 02/18/17 11:45 Dose: 17 gm Quetiapine Fumarate (Seroquel) 100 mg PO HS TAMIKO PRN Reason: Protocol Stop: 04/16/17 20:59 Last Admin: 02/17/17 21:07 Dose: 100 mg Sodium Phosphate (Fleet Enema) 135 ml RC Q48H PRN PRN Reason: Constipation Stop: 04/08/17 23:10 Zolpidem Tartrate (Ambien) 5 mg PO HS PRN PRN Reason: Insomnia Stop: 04/08/17 23:07 General: alert, appears older HEENT: NC/AT, PERRLA, EOMI, anicteric sclerae, throat clear Neck: Supple, No thyromegaly, +2 carotid pulse wo bruit, No LAD, + JVD Cardiovascular: Normal S1, Normal S2, without murmur Abdomen: soft, non-tender, non-distended Neurological: no change Internal Medicine Assmt/Plan - Assessment Assessment: 1.FUNCTIONAL QUADRIPARESIS 2.SEIZURE DISORDER. 3.PSYCHOSIS. - Plan Plan: CONTINUE ON CURRENT MEDICATION AND DIET. Nutritional Asmnt/Malnutr-PDOC - Dietary Evaluation Malnutrition Findings (Please click <Entered> for more info): Nutritional Asmnt/Malnutrition Start: 02/11/17 18: 33 Text: Status: Complete Freq: Document 02/11/17 18:33 GSUN (Rec: 02/11/17 18:38 GSUN [email or web address]) Nutritional Asmnt/Malnutrition Patient General Information Nutritional Screening Moderate Risk Screening Diagnosis Bipolar disorder Pertinent Medical Hx/Surgical Hx Bipolar disorder, seizure disorder, depression Subjective Information 56 year old male from SNF. Pt was pleasant, appeared guarded , did not provide much meaningful responses, remained silent for most questions. Pt appeared overweight. Avg PO intake 75-100% of meals since adm, meeting nutritional needs . Pt deneid nutritional concerns at this time. Current Diet Order/ Nutrition Support DAVIS Pertinent Medications Maalox, MOM, Seroquel, Fleet Enema Pertinent Labs Reviewed. Nutritional Hx/Data Height 1.75 m Height (Calculated Centimeters) 175.3 Current Weight (lbs) 77.61 kg Weight (Calculated Kilograms) 77.6 Weight (Calculated Grams) 81183.7 [place] Body Weight 160 Weight Status Approriate GI Symptoms Usual diet at home [facility]: DAVIS , regular Skin Integrity/Comment: Clif Miranda. Skin intact. Current %PO Good (75-100%) Estimated Nutritional Goals BEE in Kcals: Using Current wt Calories/Kcals/Kg CBW 171.1lb/77.8kg Kcals Calculated 1945-2334kcal (25-30kcal/kg) Protein: Using Current wt Protein Calculated 78g (1g/kg) Fluid: ml 1945-2334ml (1ml/kcal) Nutritional Problem 1. Problem Problem No nutritional problem at this time. Intervention/Recommendation Comments 1. Continue with current diet order. Avg PO intake is adequate. Expected Outcomes/Goals Expected Outcomes/Goals 1. PO intake continue to meet at least 75% of estimated nutritional needs.
--- NOTE | 2017-02-19 05:41 | Progress Notes ---
DATE: 02/18/2017 Case was discussed with staff of the patient, reviewed records. I still do not have the number to call his cousin who happens to have ____ turning on him. The patient today was not able to answer any of my questions. He continues to be internally preoccupied. Continues to be depressed, unable to express himself. The patient is paraplegic, withdrawn, guarded. The patient also has a seizure disorder. The patient is compliant with the medications with no side effects, no sedation, no nausea, no extrapyramidal symptoms. Also, medications for his seizure disorder, Tegretol and Depakote and his Seroquel dose was increased to 100 mg at bedtime. No side effects, no sedation, no nausea, no extrapyramidal symptoms, and we will continue to work with the patient in group therapy, milieu therapy, adjust medication as needed. JOB# [id number]
[2017-02-19] MEDS: POLYETHYLENE GLYCOL 3350 17 GM PACK PO SCH (17:41)
--- NOTE | 2017-02-19 19:48 | Internal Medicine Prog Note ---
Internal Medicine Subjective - Subjective Service Date: 02/19/17 Patient seen and examined:: without staff Patient is:: awake, verbal, in bed, confused Per staff patient has:: no adverse event Internal Medicine Objective - Results Result Diagrams: 02/11/17 06:19 02/11/17 06:19 Recent Labs: Laboratory Last Values WBC 5.7 Th/cmm (4.8-10.8) 02/11/17 06:19 RBC 4.67 Mil/cmm (4.30-5.70) 02/11/17 06:19 Hgb 12.7 gm/dL (13.2-17.3) L 02/11/17 06:19 Hct 38.0 % (39.0-49.0) L D 02/11/17 06:19 MCV 81.4 fl (80-99) 02/11/17 06:19 MCH 27.2 pg (26.0-30.0) 02/11/17 06:19 MCHC Differential 33.5 pg (28.0-36.0) 02/11/17 06:19 RDW 14.6 % (11.5-20.0) 02/11/17 06:19 Plt Count 167 Th/cmm (150-400) 02/11/17 06:19 MPV 9.0 fl 02/11/17 06:19 Neutrophils % 46.6 % (40.0-80.0) 02/11/17 06:19 Lymphocytes % 43.6 % (20.0-50.0) 02/11/17 06:19 Monocytes % 5.9 % (2.0-10.0) 02/11/17 06:19 Eosinophils % 3.8 % (0.0-5.0) 02/11/17 06:19 Basophils % 0.1 % (0.0-2.0) 02/11/17 06:19 Sodium 136 mEq/L (136-145) 02/11/17 06:19 Potassium 4.1 mEq/L (3.5-5.1) 02/11/17 06:19 Chloride 107 mEq/L (98-107) 02/11/17 06:19 Carbon Dioxide 26.6 mEq/L (21.0-31.0) 02/11/17 06:19 Anion Gap 6.5 (7.0-16.0) L 02/11/17 06:19 BUN 13 mg/dL (7-25) 02/11/17 06:19 Creatinine 0.7 mg/dL (0.7-1.3) 02/11/17 06:19 Est GFR ( Amer) > 60.0 ml/min (>90) 02/11/17 06:19 Est GFR (Non-Af Amer) > 60.0 ml/min 02/11/17 06:19 BUN/Creatinine Ratio 18.6 02/11/17 06:19 Glucose 96 mg/dL (70-105) 02/11/17 06:19 Calcium 8.3 mg/dL (8.6-10.3) L 02/11/17 06:19 Total Bilirubin 0.3 mg/dL (0.3-1.0) 02/11/17 06:19 AST 16 U/L (13-39) 02/11/17 06:19 ALT 9 U/L (7-52) 02/11/17 06:19 Alkaline Phosphatase 61 U/L (34-104) 02/11/17 06:19 Total Protein 6.5 gm/dL (6.0-8.3) 02/11/17 06:19 Albumin 3.3 gm/dL (4.2-5.5) L 02/11/17 06:19 Globulin 3.2 gm/dL 02/11/17 06:19 Albumin/Globulin Ratio 1.0 (1.0-1.8) 02/11/17 06:19 Triglycerides 62 mg/dL (<150) 02/07/17 21:00 Cholesterol 133 mg/dL (<200) 02/07/17 21:00 LDL Cholesterol Direct 97 mg/dL (75-193) 02/07/17 21:00 HDL Cholesterol 31 mg/dL (23-92) 02/07/17 21:00 TSH 4.20 uIU/ml (0.34-5.60) 02/07/17 21:00 Valproic Acid 34.8 ug/mL (50.0-100.0) L 02/18/17 13:10 Carbamazepine 6.7 ug/ml (4.0-12.0) 02/18/17 13:10 RPR NONREACTIVE (NONREACTIVE) 02/07/17 21:00 - Physical Exam Vitals and I&O: Vital Signs Temp 98.2 F 02/19/17 05:58 Pulse 85 02/19/17 05:58 Resp 20 02/19/17 08:00 BP 98/59 02/19/17 05:58 Pulse Ox 93 02/19/17 05:58 Intake & Output 02/19/17 02/19/17 02/20/17 06:59 18:59 06:59 Intake Total 120 Balance 120 Intake: Oral 120 Other: # Voids 3 # Bowel Movements 0 Active Medications: Current Medications Acetaminophen (Tylenol) 650 mg PO Q6H PRN PRN Reason: Mild Pain/Headache/T above 101 Stop: 04/08/17 23:07 Last Admin: 02/19/17 03:09 Dose: 650 mg Al Hydrox/Mg Hydrox/Simethicone (Maalox) 30 ml PO Q6H PRN PRN Reason: Dyspepsia Stop: 04/08/17 23:07 Carbamazepine (Tegretol) 200 mg PO TID TAMIKO PRN Reason: Protocol Stop: 04/09/17 13:59 Last Admin: 02/19/17 17:58 Dose: 200 mg Divalproex Sodium (Depakote Sprinkle) 750 mg PO BID TAMIKO PRN Reason: Protocol Stop: 04/16/17 08:59 Last Admin: 02/19/17 17:58 Dose: 750 mg Lorazepam (Ativan) 1 mg PO Q6H PRN; Protocol PRN Reason: Anxiety/Agitation Stop: 04/08/17 23:07 Magnesium Hydroxide (Milk Of Magnesia) 30 ml PO HS PRN PRN Reason: Constipation Stop: 04/08/17 23:07 Last Admin: 02/15/17 20:59 Dose: 30 ml Polyethylene Glycol (Miralax) 17 gm PO DAILY TAMIKO Stop: 04/17/17 08:59 Last Admin: 02/19/17 17:41 Dose: Not Given Quetiapine Fumarate (Seroquel) 125 mg PO HS TAMIKO PRN Reason: Protocol Stop: 04/20/17 20:59 Sodium Phosphate (Fleet Enema) 135 ml RC Q48H PRN PRN Reason: Constipation Stop: 04/08/17 23:10 Zolpidem Tartrate (Ambien) 5 mg PO HS PRN PRN Reason: Insomnia Stop: 04/08/17 23:07 General: alert, appears older HEENT: NC/AT, PERRLA, EOMI, anicteric sclerae, throat clear Neck: Supple, No thyromegaly, +2 carotid pulse wo bruit, No LAD, + JVD Cardiovascular: Normal S1, Normal S2, without murmur Abdomen: soft, non-tender, non-distended Neurological: no change Internal Medicine Assmt/Plan - Assessment Assessment: 1.FUNCTIONAL QUADRIPARESIS 2.SEIZURE DISORDER. 3.PSYCHOSIS. - Plan Plan: CONTINUE ON CURRENT MEDICATION AND DIET. Nutritional Asmnt/Malnutr-PDOC - Dietary Evaluation Malnutrition Findings (Please click <Entered> for more info): Nutritional Asmnt/Malnutrition Start: 02/11/17 18: 33 Text: Status: Complete Freq: Document 02/11/17 18:33 GSUN (Rec: 02/11/17 18:38 GSUN [email or web address]) Nutritional Asmnt/Malnutrition Patient General Information Nutritional Screening Moderate Risk Screening Diagnosis Bipolar disorder Pertinent Medical Hx/Surgical Hx Bipolar disorder, seizure disorder, depression Subjective Information 56 year old male from SNF. Pt was pleasant, appeared guarded , did not provide much meaningful responses, remained silent for most questions. Pt appeared overweight. Avg PO intake 75-100% of meals since adm, meeting nutritional needs . Pt deneid nutritional concerns at this time. Current Diet Order/ Nutrition Support DAVIS Pertinent Medications Maalox, MOM, Seroquel, Fleet Enema Pertinent Labs Reviewed. Nutritional Hx/Data Height 1.75 m Height (Calculated Centimeters) 175.3 Current Weight (lbs) 77.61 kg Weight (Calculated Kilograms) 77.6 Weight (Calculated Grams) 13476.7 [place] Body Weight 160 Weight Status Approriate GI Symptoms Usual diet at home [facility]: DAVIS , regular Skin Integrity/Comment: Clif 14. Skin intact. Current %PO Good (75-100%) Estimated Nutritional Goals BEE in Kcals: Using Current wt Calories/Kcals/Kg CBW 171.1lb/77.8kg Kcals Calculated 1945-2334kcal (25-30kcal/kg) Protein: Using Current wt Protein Calculated 78g (1g/kg) Fluid: ml 1945-2334ml (1ml/kcal) Nutritional Problem 1. Problem Problem No nutritional problem at this time. Intervention/Recommendation Comments 1. Continue with current diet order. Avg PO intake is adequate. Expected Outcomes/Goals Expected Outcomes/Goals 1. PO intake continue to meet at least 75% of estimated nutritional needs.
--- NOTE | 2017-02-20 02:29 | Progress Notes ---
DATE: 02/19/2017 Case was discussed with staff of the patient, reviewed records. The patient is bedridden. Continues to be unable to carry any conversations like he has episodes, can speak but very briefly like he is now fine high, but no long sentences. He is in total care. Apparently, he is paraplegia. His Depakote level is 44.3. His Tegretol level also with low; however, I did ask the staff to consult the medical doctor regarding that because he is on those medications for seizure disorder. His chemistry panel showed low total protein and low albumin. The rest within normal range. His CBC showed low hemoglobin and hematocrit. The rest were within normal range. TSH within normal range. His lipid panel was within normal range. He is still unpredictable, impulsive and needing redirection. I will be increasing Seroquel dose to 125 mg at bedtime and so far no side effects, no sedation, no nausea, and no extrapyramidal symptoms. We will continue to work with the patient in group therapy, milieu therapy, and adjust medications as needed. JOB# [id number]
--- NOTE | 2017-02-20 10:34 | Internal Medicine Prog Note ---
Internal Medicine Subjective - Subjective Service Date: 02/20/17 Patient seen and examined:: without staff Patient is:: awake, verbal, in bed, confused Per staff patient has:: no adverse event Internal Medicine Objective - Results Result Diagrams: 02/11/17 06:19 02/11/17 06:19 Recent Labs: Laboratory Last Values WBC 5.7 Th/cmm (4.8-10.8) 02/11/17 06:19 RBC 4.67 Mil/cmm (4.30-5.70) 02/11/17 06:19 Hgb 12.7 gm/dL (13.2-17.3) L 02/11/17 06:19 Hct 38.0 % (39.0-49.0) L D 02/11/17 06:19 MCV 81.4 fl (80-99) 02/11/17 06:19 MCH 27.2 pg (26.0-30.0) 02/11/17 06:19 MCHC Differential 33.5 pg (28.0-36.0) 02/11/17 06:19 RDW 14.6 % (11.5-20.0) 02/11/17 06:19 Plt Count 167 Th/cmm (150-400) 02/11/17 06:19 MPV 9.0 fl 02/11/17 06:19 Neutrophils % 46.6 % (40.0-80.0) 02/11/17 06:19 Lymphocytes % 43.6 % (20.0-50.0) 02/11/17 06:19 Monocytes % 5.9 % (2.0-10.0) 02/11/17 06:19 Eosinophils % 3.8 % (0.0-5.0) 02/11/17 06:19 Basophils % 0.1 % (0.0-2.0) 02/11/17 06:19 Sodium 136 mEq/L (136-145) 02/11/17 06:19 Potassium 4.1 mEq/L (3.5-5.1) 02/11/17 06:19 Chloride 107 mEq/L (98-107) 02/11/17 06:19 Carbon Dioxide 26.6 mEq/L (21.0-31.0) 02/11/17 06:19 Anion Gap 6.5 (7.0-16.0) L 02/11/17 06:19 BUN 13 mg/dL (7-25) 02/11/17 06:19 Creatinine 0.7 mg/dL (0.7-1.3) 02/11/17 06:19 Est GFR ( Amer) > 60.0 ml/min (>90) 02/11/17 06:19 Est GFR (Non-Af Amer) > 60.0 ml/min 02/11/17 06:19 BUN/Creatinine Ratio 18.6 02/11/17 06:19 Glucose 96 mg/dL (70-105) 02/11/17 06:19 Calcium 8.3 mg/dL (8.6-10.3) L 02/11/17 06:19 Total Bilirubin 0.3 mg/dL (0.3-1.0) 02/11/17 06:19 AST 16 U/L (13-39) 02/11/17 06:19 ALT 9 U/L (7-52) 02/11/17 06:19 Alkaline Phosphatase 61 U/L (34-104) 02/11/17 06:19 Total Protein 6.5 gm/dL (6.0-8.3) 02/11/17 06:19 Albumin 3.3 gm/dL (4.2-5.5) L 02/11/17 06:19 Globulin 3.2 gm/dL 02/11/17 06:19 Albumin/Globulin Ratio 1.0 (1.0-1.8) 02/11/17 06:19 Triglycerides 62 mg/dL (<150) 02/07/17 21:00 Cholesterol 133 mg/dL (<200) 02/07/17 21:00 LDL Cholesterol Direct 97 mg/dL (75-193) 02/07/17 21:00 HDL Cholesterol 31 mg/dL (23-92) 02/07/17 21:00 TSH 4.20 uIU/ml (0.34-5.60) 02/07/17 21:00 Valproic Acid 34.8 ug/mL (50.0-100.0) L 02/18/17 13:10 Carbamazepine 6.7 ug/ml (4.0-12.0) 02/18/17 13:10 RPR NONREACTIVE (NONREACTIVE) 02/07/17 21:00 - Physical Exam Vitals and I&O: Vital Signs Temp 97.5 F 02/20/17 06:34 Pulse 64 02/20/17 06:34 Resp 20 02/20/17 06:34 BP 117/76 02/20/17 06:34 Pulse Ox 96 02/20/17 06:34 Intake & Output 02/19/17 02/20/17 02/20/17 18:59 06:59 18:59 Intake Total 120 Balance 120 Intake: Oral 120 Other: # Voids 3 Active Medications: Current Medications Acetaminophen (Tylenol) 650 mg PO Q6H PRN PRN Reason: Mild Pain/Headache/T above 101 Stop: 04/08/17 23:07 Last Admin: 02/19/17 03:09 Dose: 650 mg Al Hydrox/Mg Hydrox/Simethicone (Maalox) 30 ml PO Q6H PRN PRN Reason: Dyspepsia Stop: 04/08/17 23:07 Carbamazepine (Tegretol) 200 mg PO TID TAMIKO PRN Reason: Protocol Stop: 04/09/17 13:59 Last Admin: 02/19/17 20:49 Dose: 200 mg Divalproex Sodium (Depakote Sprinkle) 750 mg PO BID TAMIKO PRN Reason: Protocol Stop: 04/16/17 08:59 Last Admin: 02/19/17 17:58 Dose: 750 mg Lorazepam (Ativan) 1 mg PO Q6H PRN; Protocol PRN Reason: Anxiety/Agitation Stop: 04/08/17 23:07 Magnesium Hydroxide (Milk Of Magnesia) 30 ml PO HS PRN PRN Reason: Constipation Stop: 04/08/17 23:07 Last Admin: 02/15/17 20:59 Dose: 30 ml Polyethylene Glycol (Miralax) 17 gm PO DAILY TAMIKO Stop: 04/17/17 08:59 Last Admin: 02/19/17 17:41 Dose: Not Given Quetiapine Fumarate (Seroquel) 150 mg PO HS TAMIKO PRN Reason: Protocol Stop: 04/21/17 08:36 Sodium Phosphate (Fleet Enema) 135 ml RC Q48H PRN PRN Reason: Constipation Stop: 04/08/17 23:10 Zolpidem Tartrate (Ambien) 5 mg PO HS PRN PRN Reason: Insomnia Stop: 04/08/17 23:07 General: alert, appears older HEENT: NC/AT, PERRLA, EOMI, anicteric sclerae, throat clear Neck: Supple, No thyromegaly, +2 carotid pulse wo bruit, No LAD, + JVD Cardiovascular: Normal S1, Normal S2, without murmur Abdomen: soft, non-tender, non-distended Neurological: no change Internal Medicine Assmt/Plan - Assessment Assessment: 1.FUNCTIONAL QUADRIPARESIS 2.SEIZURE DISORDER. 3.PSYCHOSIS. - Plan Plan: CONTINUE ON CURRENT MEDICATION AND DIET. Nutritional Asmnt/Malnutr-PDOC - Dietary Evaluation Malnutrition Findings (Please click <Entered> for more info): Nutritional Asmnt/Malnutrition Start: 02/11/17 18: 33 Text: Status: Complete Freq: Document 02/11/17 18:33 GSUN (Rec: 02/11/17 18:38 GSUN [email or web address]) Nutritional Asmnt/Malnutrition Patient General Information Nutritional Screening Moderate Risk Screening Diagnosis Bipolar disorder Pertinent Medical Hx/Surgical Hx Bipolar disorder, seizure disorder, depression Subjective Information 56 year old male from SNF. Pt was pleasant, appeared guarded , did not provide much meaningful responses, remained silent for most questions. Pt appeared overweight. Avg PO intake 75-100% of meals since adm, meeting nutritional needs . Pt deneid nutritional concerns at this time. Current Diet Order/ Nutrition Support DAVIS Pertinent Medications Maalox, MOM, Seroquel, Fleet Enema Pertinent Labs Reviewed. Nutritional Hx/Data Height 1.75 m Height (Calculated Centimeters) 175.3 Current Weight (lbs) 77.61 kg Weight (Calculated Kilograms) 77.6 Weight (Calculated Grams) 25467.7 [place] Body Weight 160 Weight Status Approriate GI Symptoms Usual diet at home [facility]: DAVIS , regular Skin Integrity/Comment: Clif 14. Skin intact. Current %PO Good (75-100%) Estimated Nutritional Goals BEE in Kcals: Using Current wt Calories/Kcals/Kg CBW 171.1lb/77.8kg Kcals Calculated 1945-2334kcal (25-30kcal/kg) Protein: Using Current wt Protein Calculated 78g (1g/kg) Fluid: ml 1945-2334ml (1ml/kcal) Nutritional Problem 1. Problem Problem No nutritional problem at this time. Intervention/Recommendation Comments 1. Continue with current diet order. Avg PO intake is adequate. Expected Outcomes/Goals Expected Outcomes/Goals 1. PO intake continue to meet at least 75% of estimated nutritional needs.
[2017-02-20] MEDS: POLYETHYLENE GLYCOL 3350 17 GM PACK PO SCH (11:19)
--- NOTE | 2017-02-21 01:54 | Progress Notes ---
DATE: 02/20/2017 Case was discussed with staff of the patient, reviewed records. The patient continues this week. He is not actually talking as much. He is internally preoccupied. He is still unpredictable. He stays to himself. He is paraplegic, needs total care. I tried to call his cousin many times who has power of attorney recruiter, but so far, I have been unable even to leave a message, because the phone number he gave me, I get a message saying this phone has not been set for voicemail, so it is hard to leave a message and he has not left any other number to call. At this point, no side effects for the medication, no sedation, no nausea, no extrapyramidal symptoms. I will be increasing the Seroquel dose further to help improve the behavior. It will be increased to 150 mg a day and work the patient in group therapy, milieu therapy, and adjust the medication as needed. JOB# [id number]
[2017-02-21] MEDS: POLYETHYLENE GLYCOL 3350 17 GM PACK PO SCH (09:56)
--- NOTE | 2017-02-21 20:16 | Internal Medicine Prog Note ---
Internal Medicine Subjective - Subjective Service Date: 02/21/17 Patient seen and examined:: without staff Patient is:: awake, verbal, in bed, confused Per staff patient has:: no adverse event Internal Medicine Objective - Results Result Diagrams: 02/11/17 06:19 02/11/17 06:19 Recent Labs: Laboratory Last Values WBC 5.7 Th/cmm (4.8-10.8) 02/11/17 06:19 RBC 4.67 Mil/cmm (4.30-5.70) 02/11/17 06:19 Hgb 12.7 gm/dL (13.2-17.3) L 02/11/17 06:19 Hct 38.0 % (39.0-49.0) L D 02/11/17 06:19 MCV 81.4 fl (80-99) 02/11/17 06:19 MCH 27.2 pg (26.0-30.0) 02/11/17 06:19 MCHC Differential 33.5 pg (28.0-36.0) 02/11/17 06:19 RDW 14.6 % (11.5-20.0) 02/11/17 06:19 Plt Count 167 Th/cmm (150-400) 02/11/17 06:19 MPV 9.0 fl 02/11/17 06:19 Neutrophils % 46.6 % (40.0-80.0) 02/11/17 06:19 Lymphocytes % 43.6 % (20.0-50.0) 02/11/17 06:19 Monocytes % 5.9 % (2.0-10.0) 02/11/17 06:19 Eosinophils % 3.8 % (0.0-5.0) 02/11/17 06:19 Basophils % 0.1 % (0.0-2.0) 02/11/17 06:19 Sodium 136 mEq/L (136-145) 02/11/17 06:19 Potassium 4.1 mEq/L (3.5-5.1) 02/11/17 06:19 Chloride 107 mEq/L (98-107) 02/11/17 06:19 Carbon Dioxide 26.6 mEq/L (21.0-31.0) 02/11/17 06:19 Anion Gap 6.5 (7.0-16.0) L 02/11/17 06:19 BUN 13 mg/dL (7-25) 02/11/17 06:19 Creatinine 0.7 mg/dL (0.7-1.3) 02/11/17 06:19 Est GFR ( Amer) > 60.0 ml/min (>90) 02/11/17 06:19 Est GFR (Non-Af Amer) > 60.0 ml/min 02/11/17 06:19 BUN/Creatinine Ratio 18.6 02/11/17 06:19 Glucose 96 mg/dL (70-105) 02/11/17 06:19 Calcium 8.3 mg/dL (8.6-10.3) L 02/11/17 06:19 Total Bilirubin 0.3 mg/dL (0.3-1.0) 02/11/17 06:19 AST 16 U/L (13-39) 02/11/17 06:19 ALT 9 U/L (7-52) 02/11/17 06:19 Alkaline Phosphatase 61 U/L (34-104) 02/11/17 06:19 Total Protein 6.5 gm/dL (6.0-8.3) 02/11/17 06:19 Albumin 3.3 gm/dL (4.2-5.5) L 02/11/17 06:19 Globulin 3.2 gm/dL 02/11/17 06:19 Albumin/Globulin Ratio 1.0 (1.0-1.8) 02/11/17 06:19 Triglycerides 62 mg/dL (<150) 02/07/17 21:00 Cholesterol 133 mg/dL (<200) 02/07/17 21:00 LDL Cholesterol Direct 97 mg/dL (75-193) 02/07/17 21:00 HDL Cholesterol 31 mg/dL (23-92) 02/07/17 21:00 TSH 4.20 uIU/ml (0.34-5.60) 02/07/17 21:00 Valproic Acid 34.8 ug/mL (50.0-100.0) L 02/18/17 13:10 Carbamazepine 6.7 ug/ml (4.0-12.0) 02/18/17 13:10 RPR NONREACTIVE (NONREACTIVE) 02/07/17 21:00 - Physical Exam Vitals and I&O: Vital Signs Temp 98 F 02/21/17 18:21 Pulse 93 02/21/17 18:21 Resp 20 02/21/17 18:21 BP 113/75 02/21/17 18:21 Pulse Ox 95 02/21/17 18:21 Intake & Output 02/21/17 02/21/17 02/22/17 06:59 18:59 06:59 Intake Total 120 1000 Balance 120 1000 Intake: Oral 120 1000 Other: # Voids 3 3 Active Medications: Current Medications Acetaminophen (Tylenol) 650 mg PO Q6H PRN PRN Reason: Mild Pain/Headache/T above 101 Stop: 04/08/17 23:07 Last Admin: 02/19/17 03:09 Dose: 650 mg Al Hydrox/Mg Hydrox/Simethicone (Maalox) 30 ml PO Q6H PRN PRN Reason: Dyspepsia Stop: 04/08/17 23:07 Carbamazepine (Tegretol) 200 mg PO TID TAMIKO PRN Reason: Protocol Stop: 04/09/17 13:59 Last Admin: 02/21/17 13:48 Dose: 200 mg Divalproex Sodium (Depakote Sprinkle) 750 mg PO BID TAMIKO PRN Reason: Protocol Stop: 04/16/17 08:59 Last Admin: 02/21/17 16:09 Dose: 750 mg Lorazepam (Ativan) 1 mg PO Q6H PRN; Protocol PRN Reason: Anxiety/Agitation Stop: 04/08/17 23:07 Magnesium Hydroxide (Milk Of Magnesia) 30 ml PO HS PRN PRN Reason: Constipation Stop: 04/08/17 23:07 Last Admin: 02/15/17 20:59 Dose: 30 ml Polyethylene Glycol (Miralax) 17 gm PO DAILY TAMIKO Stop: 04/17/17 08:59 Last Admin: 02/21/17 09:56 Dose: Not Given Quetiapine Fumarate (Seroquel) 150 mg PO HS TAMIKO PRN Reason: Protocol Stop: 04/21/17 08:36 Last Admin: 02/20/17 21:10 Dose: 150 mg Sodium Phosphate (Fleet Enema) 135 ml RC Q48H PRN PRN Reason: Constipation Stop: 04/08/17 23:10 Zolpidem Tartrate (Ambien) 5 mg PO HS PRN PRN Reason: Insomnia Stop: 04/08/17 23:07 Last Admin: 02/20/17 21:10 Dose: 5 mg General: alert, appears older HEENT: NC/AT, PERRLA, EOMI, anicteric sclerae, throat clear Neck: Supple, No thyromegaly, +2 carotid pulse wo bruit, No LAD, + JVD Cardiovascular: Normal S1, Normal S2, without murmur Abdomen: soft, non-tender, non-distended Neurological: no change Internal Medicine Assmt/Plan - Assessment Assessment: 1.FUNCTIONAL QUADRIPARESIS 2.SEIZURE DISORDER. 3.PSYCHOSIS. - Plan Plan: CONTINUE ON CURRENT MEDICATION AND DIET. Nutritional Asmnt/Malnutr-PDOC - Dietary Evaluation Malnutrition Findings (Please click <Entered> for more info): Nutritional Asmnt/Malnutrition Start: 02/11/17 18: 33 Text: Status: Complete Freq: Document 02/11/17 18:33 GSUN (Rec: 02/11/17 18:38 GSUN [email or web address]) Nutritional Asmnt/Malnutrition Patient General Information Nutritional Screening Moderate Risk Screening Diagnosis Bipolar disorder Pertinent Medical Hx/Surgical Hx Bipolar disorder, seizure disorder, depression Subjective Information 56 year old male from SNF. Pt was pleasant, appeared guarded , did not provide much meaningful responses, remained silent for most questions. Pt appeared overweight. Avg PO intake 75-100% of meals since adm, meeting nutritional needs . Pt deneid nutritional concerns at this time. Current Diet Order/ Nutrition Support DAVIS Pertinent Medications Maalox, MOM, Seroquel, Fleet Enema Pertinent Labs Reviewed. Nutritional Hx/Data Height 1.75 m Height (Calculated Centimeters) 175.3 Current Weight (lbs) 77.61 kg Weight (Calculated Kilograms) 77.6 Weight (Calculated Grams) 92665.7 [place] Body Weight 160 Weight Status Approriate GI Symptoms Usual diet at home [facility]: DAVIS , regular Skin Integrity/Comment: Clif Miranda. Skin intact. Current %PO Good (75-100%) Estimated Nutritional Goals BEE in Kcals: Using Current wt Calories/Kcals/Kg CBW 171.1lb/77.8kg Kcals Calculated 1945-2334kcal (25-30kcal/kg) Protein: Using Current wt Protein Calculated 78g (1g/kg) Fluid: ml 1945-2334ml (1ml/kcal) Nutritional Problem 1. Problem Problem No nutritional problem at this time. Intervention/Recommendation Comments 1. Continue with current diet order. Avg PO intake is adequate. Expected Outcomes/Goals Expected Outcomes/Goals 1. PO intake continue to meet at least 75% of estimated nutritional needs.
--- NOTE | 2017-02-21 23:23 | Progress Notes ---
DATE: 02/21/2017 Case was discussed with staff of the patient, reviewed records. The patient is talking more now. He is more alert. He is responding better to questions. The staff also reports that he has been speaking [place]. He is bedridden. He is sleeping better, eating better. No side effects with the medication, no sedation, no nausea, no extrapyramidal symptoms. We will continue to work with the patient in group therapy, milieu therapy, adjust the medication as needed. JOB# [id number]
[2017-02-22] MEDS: POLYETHYLENE GLYCOL 3350 17 GM PACK PO SCH (08:28)
--- NOTE | 2017-02-22 17:24 | Internal Medicine Prog Note ---
Internal Medicine Subjective - Subjective Service Date: 02/22/17 Patient seen and examined:: without staff Patient is:: awake, verbal, in bed, confused Per staff patient has:: no adverse event Internal Medicine Objective - Results Result Diagrams: 02/11/17 06:19 02/11/17 06:19 Recent Labs: Laboratory Last Values WBC 5.7 Th/cmm (4.8-10.8) 02/11/17 06:19 RBC 4.67 Mil/cmm (4.30-5.70) 02/11/17 06:19 Hgb 12.7 gm/dL (13.2-17.3) L 02/11/17 06:19 Hct 38.0 % (39.0-49.0) L D 02/11/17 06:19 MCV 81.4 fl (80-99) 02/11/17 06:19 MCH 27.2 pg (26.0-30.0) 02/11/17 06:19 MCHC Differential 33.5 pg (28.0-36.0) 02/11/17 06:19 RDW 14.6 % (11.5-20.0) 02/11/17 06:19 Plt Count 167 Th/cmm (150-400) 02/11/17 06:19 MPV 9.0 fl 02/11/17 06:19 Neutrophils % 46.6 % (40.0-80.0) 02/11/17 06:19 Lymphocytes % 43.6 % (20.0-50.0) 02/11/17 06:19 Monocytes % 5.9 % (2.0-10.0) 02/11/17 06:19 Eosinophils % 3.8 % (0.0-5.0) 02/11/17 06:19 Basophils % 0.1 % (0.0-2.0) 02/11/17 06:19 Sodium 136 mEq/L (136-145) 02/11/17 06:19 Potassium 4.1 mEq/L (3.5-5.1) 02/11/17 06:19 Chloride 107 mEq/L (98-107) 02/11/17 06:19 Carbon Dioxide 26.6 mEq/L (21.0-31.0) 02/11/17 06:19 Anion Gap 6.5 (7.0-16.0) L 02/11/17 06:19 BUN 13 mg/dL (7-25) 02/11/17 06:19 Creatinine 0.7 mg/dL (0.7-1.3) 02/11/17 06:19 Est GFR ( Amer) > 60.0 ml/min (>90) 02/11/17 06:19 Est GFR (Non-Af Amer) > 60.0 ml/min 02/11/17 06:19 BUN/Creatinine Ratio 18.6 02/11/17 06:19 Glucose 96 mg/dL (70-105) 02/11/17 06:19 Calcium 8.3 mg/dL (8.6-10.3) L 02/11/17 06:19 Total Bilirubin 0.3 mg/dL (0.3-1.0) 02/11/17 06:19 AST 16 U/L (13-39) 02/11/17 06:19 ALT 9 U/L (7-52) 02/11/17 06:19 Alkaline Phosphatase 61 U/L (34-104) 02/11/17 06:19 Total Protein 6.5 gm/dL (6.0-8.3) 02/11/17 06:19 Albumin 3.3 gm/dL (4.2-5.5) L 02/11/17 06:19 Globulin 3.2 gm/dL 02/11/17 06:19 Albumin/Globulin Ratio 1.0 (1.0-1.8) 02/11/17 06:19 Triglycerides 62 mg/dL (<150) 02/07/17 21:00 Cholesterol 133 mg/dL (<200) 02/07/17 21:00 LDL Cholesterol Direct 97 mg/dL (75-193) 02/07/17 21:00 HDL Cholesterol 31 mg/dL (23-92) 02/07/17 21:00 TSH 4.20 uIU/ml (0.34-5.60) 02/07/17 21:00 Valproic Acid 34.8 ug/mL (50.0-100.0) L 02/18/17 13:10 Carbamazepine 6.7 ug/ml (4.0-12.0) 02/18/17 13:10 RPR NONREACTIVE (NONREACTIVE) 02/07/17 21:00 - Physical Exam Vitals and I&O: Vital Signs Temp 97.6 F 02/22/17 16:04 Pulse 101 02/22/17 16:04 Resp 20 02/22/17 16:04 BP 108/66 02/22/17 16:04 Pulse Ox 97 02/22/17 16:04 Intake & Output 02/21/17 02/22/17 02/22/17 18:59 06:59 18:59 Intake Total 1000 120 Balance 1000 120 Intake: Oral 1000 120 Other: # Voids 3 3 Active Medications: Current Medications Acetaminophen (Tylenol) 650 mg PO Q6H PRN PRN Reason: Mild Pain/Headache/T above 101 Stop: 04/08/17 23:07 Last Admin: 02/19/17 03:09 Dose: 650 mg Al Hydrox/Mg Hydrox/Simethicone (Maalox) 30 ml PO Q6H PRN PRN Reason: Dyspepsia Stop: 04/08/17 23:07 Carbamazepine (Tegretol) 200 mg PO TID TAMIKO PRN Reason: Protocol Stop: 04/09/17 13:59 Last Admin: 02/22/17 13:19 Dose: 200 mg Divalproex Sodium (Depakote Sprinkle) 750 mg PO BID TAMIKO PRN Reason: Protocol Stop: 04/16/17 08:59 Last Admin: 02/22/17 16:28 Dose: 750 mg Lorazepam (Ativan) 1 mg PO Q6H PRN; Protocol PRN Reason: Anxiety/Agitation Stop: 04/08/17 23:07 Magnesium Hydroxide (Milk Of Magnesia) 30 ml PO HS PRN PRN Reason: Constipation Stop: 04/08/17 23:07 Last Admin: 02/15/17 20:59 Dose: 30 ml Polyethylene Glycol (Miralax) 17 gm PO DAILY TAMIKO Stop: 04/17/17 08:59 Last Admin: 02/22/17 08:28 Dose: 17 gm Quetiapine Fumarate 100 mg/ (Quetiapine Fumarate 75 mg) 175 mg PO HS TAMIKO Stop: 04/23/17 20:59 Sodium Phosphate (Fleet Enema) 135 ml RC Q48H PRN PRN Reason: Constipation Stop: 04/08/17 23:10 Zolpidem Tartrate (Ambien) 5 mg PO HS PRN PRN Reason: Insomnia Stop: 04/08/17 23:07 Last Admin: 02/21/17 20:52 Dose: 5 mg General: alert, appears older HEENT: NC/AT, PERRLA, EOMI, anicteric sclerae, throat clear Neck: Supple, No thyromegaly, +2 carotid pulse wo bruit, No LAD, + JVD Cardiovascular: Normal S1, Normal S2, without murmur Abdomen: soft, non-tender, non-distended Neurological: no change Internal Medicine Assmt/Plan - Assessment Assessment: 1.FUNCTIONAL QUADRIPARESIS 2.SEIZURE DISORDER. 3.PSYCHOSIS. - Plan Plan: CONTINUE ON CURRENT MEDICATION AND DIET. Nutritional Asmnt/Malnutr-PDOC - Dietary Evaluation Malnutrition Findings (Please click <Entered> for more info): Nutritional Asmnt/Malnutrition Start: 02/11/17 18: 33 Text: Status: Complete Freq: Document 02/11/17 18:33 GSUN (Rec: 02/11/17 18:38 GSUN [email or web address]) Nutritional Asmnt/Malnutrition Patient General Information Nutritional Screening Moderate Risk Screening Diagnosis Bipolar disorder Pertinent Medical Hx/Surgical Hx Bipolar disorder, seizure disorder, depression Subjective Information 56 year old male from SNF. Pt was pleasant, appeared guarded , did not provide much meaningful responses, remained silent for most questions. Pt appeared overweight. Avg PO intake 75-100% of meals since adm, meeting nutritional needs . Pt deneid nutritional concerns at this time. Current Diet Order/ Nutrition Support DAVIS Pertinent Medications Maalox, MOM, Seroquel, Fleet Enema Pertinent Labs Reviewed. Nutritional Hx/Data Height 1.75 m Height (Calculated Centimeters) 175.3 Current Weight (lbs) 77.61 kg Weight (Calculated Kilograms) 77.6 Weight (Calculated Grams) 29263.7 [place] Body Weight 160 Weight Status Approriate GI Symptoms Usual diet at home [facility]: DAVIS , regular Skin Integrity/Comment: Clif 14. Skin intact. Current %PO Good (75-100%) Estimated Nutritional Goals BEE in Kcals: Using Current wt Calories/Kcals/Kg CBW 171.1lb/77.8kg Kcals Calculated 1945-2334kcal (25-30kcal/kg) Protein: Using Current wt Protein Calculated 78g (1g/kg) Fluid: ml 1945-2334ml (1ml/kcal) Nutritional Problem 1. Problem Problem No nutritional problem at this time. Intervention/Recommendation Comments 1. Continue with current diet order. Avg PO intake is adequate. Expected Outcomes/Goals Expected Outcomes/Goals 1. PO intake continue to meet at least 75% of estimated nutritional needs.
[2017-02-22] MEDS: QUEtiapine Fumarate 100 MG, QUEtiapine Fumarate 75 MG PO SCH (21:12)
--- NOTE | 2017-02-22 23:55 | Progress Notes ---
DATE: 02/22/2017 Case was discussed with staff of the patient, reviewed records. The patient became very psychotic yesterday, had to be medicated. Continues to be staying in bed, hardly saying much. He does answer questions, but he did not carry on a lengthy conversation. Still unpredictable, impulsive, needing redirection. I will be increasing his Seroquel to 175 mg at bedtime and so far no side effects, no sedation, no nausea, no extrapyramidal symptoms. I still have not heard from his cousin who has power of personal injury attorney. We will continue to work with the patient in group therapy, milieu therapy, adjust the medication as needed. JOB# [id number]
[2017-02-23] MEDS: POLYETHYLENE GLYCOL 3350 17 GM PACK PO SCH (08:50)
--- NOTE | 2017-02-23 11:34 | Progress Notes ---
DATE: 02/23/2017 Dr. Garza covering for Dr. Mccord. SUBJECTIVE: Chart reviewed and the patient interviewed. Also discussed the patient's condition with the staff and reviewed records and labs. The patient is still in a depressed mood and is withdrawn. The patient today was trying to answer some of my questions and his affect seems to be slightly brighter than last time I saw, which was about a week ago. The patient still is isolative and is still having difficulty with his interaction and socializing. He also has been slightly suspicious and slightly paranoid. ASSESSMENT: The patient is still depressed and psychotic. TREATMENT PLAN: We will continue supportive therapy and continue monitoring his behavior and his medications closely. Also, continue to work on his ineffective coping. [facility]# [id number]
--- NOTE | 2017-02-23 14:42 | Internal Medicine Prog Note ---
Internal Medicine Subjective - Subjective Service Date: 02/23/17 Patient seen and examined:: with staff Patient is:: awake, verbal, in bed, confused Per staff patient has:: no adverse event Internal Medicine Objective - Results Result Diagrams: 02/11/17 06:19 02/11/17 06:19 Recent Labs: Laboratory Last Values WBC 5.7 Th/cmm (4.8-10.8) 02/11/17 06:19 RBC 4.67 Mil/cmm (4.30-5.70) 02/11/17 06:19 Hgb 12.7 gm/dL (13.2-17.3) L 02/11/17 06:19 Hct 38.0 % (39.0-49.0) L D 02/11/17 06:19 MCV 81.4 fl (80-99) 02/11/17 06:19 MCH 27.2 pg (26.0-30.0) 02/11/17 06:19 MCHC Differential 33.5 pg (28.0-36.0) 02/11/17 06:19 RDW 14.6 % (11.5-20.0) 02/11/17 06:19 Plt Count 167 Th/cmm (150-400) 02/11/17 06:19 MPV 9.0 fl 02/11/17 06:19 Neutrophils % 46.6 % (40.0-80.0) 02/11/17 06:19 Lymphocytes % 43.6 % (20.0-50.0) 02/11/17 06:19 Monocytes % 5.9 % (2.0-10.0) 02/11/17 06:19 Eosinophils % 3.8 % (0.0-5.0) 02/11/17 06:19 Basophils % 0.1 % (0.0-2.0) 02/11/17 06:19 Sodium 136 mEq/L (136-145) 02/11/17 06:19 Potassium 4.1 mEq/L (3.5-5.1) 02/11/17 06:19 Chloride 107 mEq/L (98-107) 02/11/17 06:19 Carbon Dioxide 26.6 mEq/L (21.0-31.0) 02/11/17 06:19 Anion Gap 6.5 (7.0-16.0) L 02/11/17 06:19 BUN 13 mg/dL (7-25) 02/11/17 06:19 Creatinine 0.7 mg/dL (0.7-1.3) 02/11/17 06:19 Est GFR ( Amer) > 60.0 ml/min (>90) 02/11/17 06:19 Est GFR (Non-Af Amer) > 60.0 ml/min 02/11/17 06:19 BUN/Creatinine Ratio 18.6 02/11/17 06:19 Glucose 96 mg/dL (70-105) 02/11/17 06:19 POC Glucose 97 MG/DL (70 - 105) 02/23/17 06:37 Calcium 8.3 mg/dL (8.6-10.3) L 02/11/17 06:19 Total Bilirubin 0.3 mg/dL (0.3-1.0) 02/11/17 06:19 AST 16 U/L (13-39) 02/11/17 06:19 ALT 9 U/L (7-52) 02/11/17 06:19 Alkaline Phosphatase 61 U/L (34-104) 02/11/17 06:19 Total Protein 6.5 gm/dL (6.0-8.3) 02/11/17 06:19 Albumin 3.3 gm/dL (4.2-5.5) L 02/11/17 06:19 Globulin 3.2 gm/dL 02/11/17 06:19 Albumin/Globulin Ratio 1.0 (1.0-1.8) 02/11/17 06:19 Triglycerides 62 mg/dL (<150) 02/07/17 21:00 Cholesterol 133 mg/dL (<200) 02/07/17 21:00 LDL Cholesterol Direct 97 mg/dL (75-193) 02/07/17 21:00 HDL Cholesterol 31 mg/dL (23-92) 02/07/17 21:00 TSH 4.20 uIU/ml (0.34-5.60) 02/07/17 21:00 Valproic Acid 34.8 ug/mL (50.0-100.0) L 02/18/17 13:10 Carbamazepine 6.7 ug/ml (4.0-12.0) 02/18/17 13:10 RPR NONREACTIVE (NONREACTIVE) 02/07/17 21:00 - Physical Exam Vitals and I&O: Vital Signs Temp 97.6 F 02/23/17 06:37 Pulse 80 02/23/17 06:37 Resp 20 02/23/17 06:37 BP 111/69 02/23/17 06:37 Pulse Ox 97 02/23/17 06:37 Intake & Output 02/22/17 02/23/17 02/23/17 18:59 06:59 18:59 Intake Total 360 120 Balance 360 120 Intake: Oral 360 120 Other: # Voids 2 3 Active Medications: Current Medications Acetaminophen (Tylenol) 650 mg PO Q6H PRN PRN Reason: Mild Pain/Headache/T above 101 Stop: 04/08/17 23:07 Last Admin: 02/23/17 13:25 Dose: 650 mg Al Hydrox/Mg Hydrox/Simethicone (Maalox) 30 ml PO Q6H PRN PRN Reason: Dyspepsia Stop: 04/08/17 23:07 Carbamazepine (Tegretol) 200 mg PO TID TAMIKO PRN Reason: Protocol Stop: 04/09/17 13:59 Last Admin: 02/23/17 13:25 Dose: 200 mg Divalproex Sodium (Depakote Sprinkle) 750 mg PO BID TAMIKO PRN Reason: Protocol Stop: 04/16/17 08:59 Last Admin: 02/23/17 08:49 Dose: 750 mg Lorazepam (Ativan) 1 mg PO Q6H PRN; Protocol PRN Reason: Anxiety/Agitation Stop: 04/08/17 23:07 Last Admin: 02/23/17 12:41 Dose: 1 mg Magnesium Hydroxide (Milk Of Magnesia) 30 ml PO HS PRN PRN Reason: Constipation Stop: 04/08/17 23:07 Last Admin: 02/15/17 20:59 Dose: 30 ml Polyethylene Glycol (Miralax) 17 gm PO DAILY TAMIKO Stop: 04/17/17 08:59 Last Admin: 02/23/17 08:50 Dose: Not Given Quetiapine Fumarate 100 mg/ (Quetiapine Fumarate 75 mg) 175 mg PO HS TAMIKO Stop: 04/23/17 20:59 Last Admin: 02/22/17 21:12 Dose: 175 mg Sodium Phosphate (Fleet Enema) 135 ml RC Q48H PRN PRN Reason: Constipation Stop: 04/08/17 23:10 Zolpidem Tartrate (Ambien) 5 mg PO HS PRN PRN Reason: Insomnia Stop: 04/08/17 23:07 Last Admin: 02/21/17 20:52 Dose: 5 mg General: alert, appears older HEENT: NC/AT, PERRLA, EOMI, anicteric sclerae, throat clear Neck: Supple, No thyromegaly, +2 carotid pulse wo bruit, No LAD, + JVD Cardiovascular: Normal S1, Normal S2, without murmur Abdomen: soft, non-tender, non-distended Neurological: no change Internal Medicine Assmt/Plan - Assessment Assessment: 1.FUNCTIONAL QUADRIPARESIS 2.SEIZURE DISORDER. 3.PSYCHOSIS. - Plan Plan: CONTINUE ON CURRENT MEDICATION AND DIET. Nutritional Asmnt/Malnutr-PDOC - Dietary Evaluation Malnutrition Findings (Please click <Entered> for more info): Nutritional Asmnt/Malnutrition Start: 02/11/17 18: 33 Text: Status: Complete Freq: Document 02/11/17 18:33 GSUN (Rec: 02/11/17 18:38 GSUN [email or web address]) Nutritional Asmnt/Malnutrition Patient General Information Nutritional Screening Moderate Risk Screening Diagnosis Bipolar disorder Pertinent Medical Hx/Surgical Hx Bipolar disorder, seizure disorder, depression Subjective Information 56 year old male from SNF. Pt was pleasant, appeared guarded , did not provide much meaningful responses, remained silent for most questions. Pt appeared overweight. Avg PO intake 75-100% of meals since adm, meeting nutritional needs . Pt deneid nutritional concerns at this time. Current Diet Order/ Nutrition Support DAVIS Pertinent Medications Maalox, MOM, Seroquel, Fleet Enema Pertinent Labs Reviewed. Nutritional Hx/Data Height 1.75 m Height (Calculated Centimeters) 175.3 Current Weight (lbs) 77.61 kg Weight (Calculated Kilograms) 77.6 Weight (Calculated Grams) 96876.7 [place] Body Weight 160 Weight Status Approriate GI Symptoms Usual diet at home [facility]: DAVIS , regular Skin Integrity/Comment: Clif Miranda. Skin intact. Current %PO Good (75-100%) Estimated Nutritional Goals BEE in Kcals: Using Current wt Calories/Kcals/Kg CBW 171.1lb/77.8kg Kcals Calculated 1945-2334kcal (25-30kcal/kg) Protein: Using Current wt Protein Calculated 78g (1g/kg) Fluid: ml 1945-2334ml (1ml/kcal) Nutritional Problem 1. Problem Problem No nutritional problem at this time. Intervention/Recommendation Comments 1. Continue with current diet order. Avg PO intake is adequate. Expected Outcomes/Goals Expected Outcomes/Goals 1. PO intake continue to meet at least 75% of estimated nutritional needs.
[2017-02-23] MEDS: Magnesium Hydroxide (MOM) 30 mL UDC PO PRN (20:29)
[2017-02-23] MEDS: QUEtiapine Fumarate 100 MG, QUEtiapine Fumarate 75 MG PO SCH (20:30)
[2017-02-24] MEDS: POLYETHYLENE GLYCOL 3350 17 GM PACK PO SCH (08:26)
--- NOTE | 2017-02-24 18:15 | Progress Notes ---
DATE: 02/24/2017 SUBJECTIVE: Chart reviewed and the patient interviewed. Also discussed the patient's condition with the staff and reviewed records and labs. The patient is still in a depressed mood and is still withdrawn, but his affect is slightly brighter. The patient is still anxious and is still disheveled. The patient also still tends to isolate himself and interacting minimally with others. He also is still feeling hopeless and helpless. He denies any thoughts of suicide. He still wants to stay by himself and still isolating himself. ASSESSMENT: The patient is still depressed. TREATMENT PLAN: We will continue monitoring his behavior and his condition closely and we will continue to follow up. [facility]# [id number]
--- NOTE | 2017-02-24 19:12 | Internal Medicine Prog Note ---
Internal Medicine Subjective - Subjective Service Date: 02/24/17 Patient seen and examined:: with staff Patient is:: awake, verbal, in bed, confused Per staff patient has:: no adverse event Internal Medicine Objective - Results Result Diagrams: 02/11/17 06:19 02/11/17 06:19 Recent Labs: Laboratory Last Values WBC 5.7 Th/cmm (4.8-10.8) 02/11/17 06:19 RBC 4.67 Mil/cmm (4.30-5.70) 02/11/17 06:19 Hgb 12.7 gm/dL (13.2-17.3) L 02/11/17 06:19 Hct 38.0 % (39.0-49.0) L D 02/11/17 06:19 MCV 81.4 fl (80-99) 02/11/17 06:19 MCH 27.2 pg (26.0-30.0) 02/11/17 06:19 MCHC Differential 33.5 pg (28.0-36.0) 02/11/17 06:19 RDW 14.6 % (11.5-20.0) 02/11/17 06:19 Plt Count 167 Th/cmm (150-400) 02/11/17 06:19 MPV 9.0 fl 02/11/17 06:19 Neutrophils % 46.6 % (40.0-80.0) 02/11/17 06:19 Lymphocytes % 43.6 % (20.0-50.0) 02/11/17 06:19 Monocytes % 5.9 % (2.0-10.0) 02/11/17 06:19 Eosinophils % 3.8 % (0.0-5.0) 02/11/17 06:19 Basophils % 0.1 % (0.0-2.0) 02/11/17 06:19 Sodium 136 mEq/L (136-145) 02/11/17 06:19 Potassium 4.1 mEq/L (3.5-5.1) 02/11/17 06:19 Chloride 107 mEq/L (98-107) 02/11/17 06:19 Carbon Dioxide 26.6 mEq/L (21.0-31.0) 02/11/17 06:19 Anion Gap 6.5 (7.0-16.0) L 02/11/17 06:19 BUN 13 mg/dL (7-25) 02/11/17 06:19 Creatinine 0.7 mg/dL (0.7-1.3) 02/11/17 06:19 Est GFR ( Amer) > 60.0 ml/min (>90) 02/11/17 06:19 Est GFR (Non-Af Amer) > 60.0 ml/min 02/11/17 06:19 BUN/Creatinine Ratio 18.6 02/11/17 06:19 Glucose 96 mg/dL (70-105) 02/11/17 06:19 POC Glucose 97 MG/DL (70 - 105) 02/23/17 06:37 Calcium 8.3 mg/dL (8.6-10.3) L 02/11/17 06:19 Total Bilirubin 0.3 mg/dL (0.3-1.0) 02/11/17 06:19 AST 16 U/L (13-39) 02/11/17 06:19 ALT 9 U/L (7-52) 02/11/17 06:19 Alkaline Phosphatase 61 U/L (34-104) 02/11/17 06:19 Total Protein 6.5 gm/dL (6.0-8.3) 02/11/17 06:19 Albumin 3.3 gm/dL (4.2-5.5) L 02/11/17 06:19 Globulin 3.2 gm/dL 02/11/17 06:19 Albumin/Globulin Ratio 1.0 (1.0-1.8) 02/11/17 06:19 Triglycerides 62 mg/dL (<150) 02/07/17 21:00 Cholesterol 133 mg/dL (<200) 02/07/17 21:00 LDL Cholesterol Direct 97 mg/dL (75-193) 02/07/17 21:00 HDL Cholesterol 31 mg/dL (23-92) 02/07/17 21:00 TSH 4.20 uIU/ml (0.34-5.60) 02/07/17 21:00 Valproic Acid 34.8 ug/mL (50.0-100.0) L 02/18/17 13:10 Carbamazepine 6.7 ug/ml (4.0-12.0) 02/18/17 13:10 RPR NONREACTIVE (NONREACTIVE) 02/07/17 21:00 - Physical Exam Vitals and I&O: Vital Signs Temp 97.6 F 02/24/17 14:00 Pulse 98 02/24/17 14:00 Resp 20 02/24/17 14:00 BP 117/71 02/24/17 14:00 Pulse Ox 96 02/24/17 14:00 Intake & Output 02/24/17 02/24/17 02/25/17 06:59 18:59 06:59 Intake Total 2400 Balance 2400 Intake: Oral 2400 Other: # Voids 3 4 # Bowel Movements 0 0 Stool Characteristics Soft Active Medications: Current Medications Acetaminophen (Tylenol) 650 mg PO Q6H PRN PRN Reason: Mild Pain/Headache/T above 101 Stop: 04/08/17 23:07 Last Admin: 02/24/17 02:49 Dose: 650 mg Al Hydrox/Mg Hydrox/Simethicone (Maalox) 30 ml PO Q6H PRN PRN Reason: Dyspepsia Stop: 04/08/17 23:07 Carbamazepine (Tegretol) 200 mg PO TID TAMIKO PRN Reason: Protocol Stop: 04/09/17 13:59 Last Admin: 02/24/17 14:47 Dose: 200 mg Divalproex Sodium (Depakote Sprinkle) 750 mg PO BID TAMIKO PRN Reason: Protocol Stop: 04/16/17 08:59 Last Admin: 02/24/17 16:49 Dose: 750 mg Lorazepam (Ativan) 1 mg PO Q6H PRN; Protocol PRN Reason: Anxiety/Agitation Stop: 04/08/17 23:07 Last Admin: 02/23/17 12:41 Dose: 1 mg Magnesium Hydroxide (Milk Of Magnesia) 30 ml PO HS PRN PRN Reason: Constipation Stop: 04/08/17 23:07 Last Admin: 02/23/17 20:29 Dose: 30 ml Polyethylene Glycol (Miralax) 17 gm PO DAILY [facility] Stop: 04/17/17 08:59 Last Admin: 02/24/17 08:26 Dose: Not Given Quetiapine Fumarate 100 mg/ (Quetiapine Fumarate 75 mg) 175 mg PO HS [facility] Stop: 04/23/17 20:59 Last Admin: 02/23/17 20:30 Dose: 175 mg Sodium Phosphate (Fleet Enema) 135 ml RC Q48H PRN PRN Reason: Constipation Stop: 04/08/17 23:10 Zolpidem Tartrate (Ambien) 5 mg PO HS PRN PRN Reason: Insomnia Stop: 04/08/17 23:07 Last Admin: 02/23/17 20:30 Dose: 5 mg General: alert, appears older HEENT: NC/AT, PERRLA, EOMI, anicteric sclerae, throat clear Neck: Supple, No thyromegaly, +2 carotid pulse wo bruit, No LAD, + JVD Cardiovascular: Normal S1, Normal S2, without murmur Abdomen: soft, non-tender, non-distended Neurological: no change Internal Medicine Assmt/Plan - Assessment Assessment: 1.FUNCTIONAL QUADRIPARESIS 2.SEIZURE DISORDER. 3.PSYCHOSIS. - Plan Plan: CONTINUE ON CURRENT MEDICATION AND DIET. Nutritional Asmnt/Malnutr-PDOC - Dietary Evaluation Malnutrition Findings (Please click <Entered> for more info): Nutritional Asmnt/Malnutrition Start: 02/11/17 18: 33 Text: Status: Complete Freq: Document 02/11/17 18:33 GSUN (Rec: 02/11/17 18:38 GSUN [email or web address]) Nutritional Asmnt/Malnutrition Patient General Information Nutritional Screening Moderate Risk Screening Diagnosis Bipolar disorder Pertinent Medical Hx/Surgical Hx Bipolar disorder, seizure disorder, depression Subjective Information 56 year old male from SNF. Pt was pleasant, appeared guarded , did not provide much meaningful responses, remained silent for most questions. Pt appeared overweight. Avg PO intake 75-100% of meals since adm, meeting nutritional needs . Pt deneid nutritional concerns at this time. Current Diet Order/ Nutrition Support DAVIS Pertinent Medications Maalox, MOM, Seroquel, Fleet Enema Pertinent Labs Reviewed. Nutritional Hx/Data Height 1.75 m Height (Calculated Centimeters) 175.3 Current Weight (lbs) 77.61 kg Weight (Calculated Kilograms) 77.6 Weight (Calculated Grams) 73590.7 [place] Body Weight 160 Weight Status Approriate GI Symptoms Usual diet at home [facility]: DAVIS , regular Skin Integrity/Comment: Clif Miranda. Skin intact. Current %PO Good (75-100%) Estimated Nutritional Goals BEE in Kcals: Using Current wt Calories/Kcals/Kg CBW 171.1lb/77.8kg Kcals Calculated 1945-2334kcal (25-30kcal/kg) Protein: Using Current wt Protein Calculated 78g (1g/kg) Fluid: ml 1945-2334ml (1ml/kcal) Nutritional Problem 1. Problem Problem No nutritional problem at this time. Intervention/Recommendation Comments 1. Continue with current diet order. Avg PO intake is adequate. Expected Outcomes/Goals Expected Outcomes/Goals 1. PO intake continue to meet at least 75% of estimated nutritional needs.
[2017-02-24] MEDS: QUEtiapine Fumarate 100 MG, QUEtiapine Fumarate 75 MG PO SCH (21:08)
[2017-02-25] MEDS: POLYETHYLENE GLYCOL 3350 17 GM PACK PO SCH (14:31)
--- NOTE | 2017-02-25 21:59 | Internal Medicine Prog Note ---
Internal Medicine Subjective - Subjective Service Date: 02/25/17 Patient seen and examined:: without staff Patient is:: awake, verbal, in bed, confused Per staff patient has:: no adverse event Internal Medicine Objective - Results Result Diagrams: 02/11/17 06:19 02/11/17 06:19 Recent Labs: Laboratory Last Values WBC 5.7 Th/cmm (4.8-10.8) 02/11/17 06:19 RBC 4.67 Mil/cmm (4.30-5.70) 02/11/17 06:19 Hgb 12.7 gm/dL (13.2-17.3) L 02/11/17 06:19 Hct 38.0 % (39.0-49.0) L D 02/11/17 06:19 MCV 81.4 fl (80-99) 02/11/17 06:19 MCH 27.2 pg (26.0-30.0) 02/11/17 06:19 MCHC Differential 33.5 pg (28.0-36.0) 02/11/17 06:19 RDW 14.6 % (11.5-20.0) 02/11/17 06:19 Plt Count 167 Th/cmm (150-400) 02/11/17 06:19 MPV 9.0 fl 02/11/17 06:19 Neutrophils % 46.6 % (40.0-80.0) 02/11/17 06:19 Lymphocytes % 43.6 % (20.0-50.0) 02/11/17 06:19 Monocytes % 5.9 % (2.0-10.0) 02/11/17 06:19 Eosinophils % 3.8 % (0.0-5.0) 02/11/17 06:19 Basophils % 0.1 % (0.0-2.0) 02/11/17 06:19 Sodium 136 mEq/L (136-145) 02/11/17 06:19 Potassium 4.1 mEq/L (3.5-5.1) 02/11/17 06:19 Chloride 107 mEq/L (98-107) 02/11/17 06:19 Carbon Dioxide 26.6 mEq/L (21.0-31.0) 02/11/17 06:19 Anion Gap 6.5 (7.0-16.0) L 02/11/17 06:19 BUN 13 mg/dL (7-25) 02/11/17 06:19 Creatinine 0.7 mg/dL (0.7-1.3) 02/11/17 06:19 Est GFR ( Amer) > 60.0 ml/min (>90) 02/11/17 06:19 Est GFR (Non-Af Amer) > 60.0 ml/min 02/11/17 06:19 BUN/Creatinine Ratio 18.6 02/11/17 06:19 Glucose 96 mg/dL (70-105) 02/11/17 06:19 POC Glucose 97 MG/DL (70 - 105) 02/23/17 06:37 Calcium 8.3 mg/dL (8.6-10.3) L 02/11/17 06:19 Total Bilirubin 0.3 mg/dL (0.3-1.0) 02/11/17 06:19 AST 16 U/L (13-39) 02/11/17 06:19 ALT 9 U/L (7-52) 02/11/17 06:19 Alkaline Phosphatase 61 U/L (34-104) 02/11/17 06:19 Total Protein 6.5 gm/dL (6.0-8.3) 02/11/17 06:19 Albumin 3.3 gm/dL (4.2-5.5) L 02/11/17 06:19 Globulin 3.2 gm/dL 02/11/17 06:19 Albumin/Globulin Ratio 1.0 (1.0-1.8) 02/11/17 06:19 Triglycerides 62 mg/dL (<150) 02/07/17 21:00 Cholesterol 133 mg/dL (<200) 02/07/17 21:00 LDL Cholesterol Direct 97 mg/dL (75-193) 02/07/17 21:00 HDL Cholesterol 31 mg/dL (23-92) 02/07/17 21:00 TSH 4.20 uIU/ml (0.34-5.60) 02/07/17 21:00 Valproic Acid 34.8 ug/mL (50.0-100.0) L 02/18/17 13:10 Carbamazepine 6.7 ug/ml (4.0-12.0) 02/18/17 13:10 RPR NONREACTIVE (NONREACTIVE) 02/07/17 21:00 - Physical Exam Vitals and I&O: Vital Signs Temp 98.1 F 02/25/17 20:11 Pulse 97 02/25/17 20:11 Resp 20 02/25/17 20:11 BP 122/73 02/25/17 20:11 Pulse Ox 94 02/25/17 20:11 Intake & Output 02/25/17 02/25/17 02/26/17 06:59 18:59 06:59 Intake Total 120 1000 120 Balance 120 1000 120 Intake: Oral 120 1000 120 Other: # Voids 4 4 1 # Bowel Movements 0 2 Active Medications: Current Medications Acetaminophen (Tylenol) 650 mg PO Q6H PRN PRN Reason: Mild Pain/Headache/T above 101 Stop: 04/08/17 23:07 Last Admin: 02/25/17 21:19 Dose: 650 mg Al Hydrox/Mg Hydrox/Simethicone (Maalox) 30 ml PO Q6H PRN PRN Reason: Dyspepsia Stop: 04/08/17 23:07 Carbamazepine (Tegretol) 200 mg PO TID TAMIKO PRN Reason: Protocol Stop: 04/09/17 13:59 Last Admin: 02/25/17 21:05 Dose: 200 mg Divalproex Sodium (Depakote Sprinkle) 750 mg PO BID TAMIKO PRN Reason: Protocol Stop: 04/16/17 08:59 Last Admin: 02/25/17 16:30 Dose: 750 mg Lorazepam (Ativan) 1 mg PO Q6H PRN; Protocol PRN Reason: Anxiety/Agitation Stop: 04/08/17 23:07 Last Admin: 02/23/17 12:41 Dose: 1 mg Magnesium Hydroxide (Milk Of Magnesia) 30 ml PO HS PRN PRN Reason: Constipation Stop: 04/08/17 23:07 Last Admin: 02/23/17 20:29 Dose: 30 ml Polyethylene Glycol (Miralax) 17 gm PO DAILY [facility] Stop: 04/17/17 08:59 Last Admin: 02/25/17 14:31 Dose: Not Given Quetiapine Fumarate (Seroquel) 200 mg PO HS [facility] Stop: 04/26/17 20:59 Last Admin: 02/25/17 21:05 Dose: 200 mg Sodium Phosphate (Fleet Enema) 135 ml RC Q48H PRN PRN Reason: Constipation Stop: 04/08/17 23:10 Zolpidem Tartrate (Ambien) 5 mg PO HS PRN PRN Reason: Insomnia Stop: 04/08/17 23:07 Last Admin: 02/25/17 21:05 Dose: 5 mg General: alert, appears older HEENT: NC/AT, PERRLA, EOMI, anicteric sclerae, throat clear Neck: Supple, No thyromegaly, +2 carotid pulse wo bruit, No LAD, + JVD Cardiovascular: Normal S1, Normal S2, without murmur Abdomen: soft, non-tender, non-distended Neurological: no change Internal Medicine Assmt/Plan - Assessment Assessment: 1.FUNCTIONAL QUADRIPARESIS 2.SEIZURE DISORDER. 3.PSYCHOSIS. - Plan Plan: CONTINUE ON CURRENT MEDICATION AND DIET. Nutritional Asmnt/Malnutr-PDOC - Dietary Evaluation Malnutrition Findings (Please click <Entered> for more info): Nutritional Asmnt/Malnutrition Start: 02/11/17 18: 33 Text: Status: Complete Freq: Document 02/11/17 18:33 GSUN (Rec: 02/11/17 18:38 [email or web address] [email or web address]) Nutritional Asmnt/Malnutrition Patient General Information Nutritional Screening Moderate Risk Screening Diagnosis Bipolar disorder Pertinent Medical Hx/Surgical Hx Bipolar disorder, seizure disorder, depression Subjective Information 56 year old male from SNF. Pt was pleasant, appeared guarded , did not provide much meaningful responses, remained silent for most questions. Pt appeared overweight. Avg PO intake 75-100% of meals since adm, meeting nutritional needs . Pt deneid nutritional concerns at this time. Current Diet Order/ Nutrition Support DAVIS Pertinent Medications Maalox, MOM, Seroquel, Fleet Enema Pertinent Labs Reviewed. Nutritional Hx/Data Height 1.75 m Height (Calculated Centimeters) 175.3 Current Weight (lbs) 77.61 kg Weight (Calculated Kilograms) 77.6 Weight (Calculated Grams) 49080.7 [place] Body Weight 160 Weight Status Approriate GI Symptoms Usual diet at home [facility]: DAVIS , regular Skin Integrity/Comment: Clif Miranda. Skin intact. Current %PO Good (75-100%) Estimated Nutritional Goals BEE in Kcals: Using Current wt Calories/Kcals/Kg CBW 171.1lb/77.8kg Kcals Calculated 1945-2334kcal (25-30kcal/kg) Protein: Using Current wt Protein Calculated 78g (1g/kg) Fluid: ml 1945-2334ml (1ml/kcal) Nutritional Problem 1. Problem Problem No nutritional problem at this time. Intervention/Recommendation Comments 1. Continue with current diet order. Avg PO intake is adequate. Expected Outcomes/Goals Expected Outcomes/Goals 1. PO intake continue to meet at least 75% of estimated nutritional needs.
--- NOTE | 2017-02-26 00:03 | Progress Notes ---
DATE: 02/25/2017 Case was discussed with staff of the patient. The staff reported that patient has been acting out. He is being acting nasty with the staff. He has been needing redirection. He is compliant with the medication with no side effects, no sedation, no nausea, no extrapyramidal symptoms. I will be increasing his Seroquel dose to 200 mg twice a day. So far no side effects, no sedation, no nausea, no extrapyramidal symptoms. Continues to have episodes of being selectively mute, continue to work with the patient in group therapy, milieu therapy, adjust the medication as needed. JOB# [id number]
[2017-02-26] MEDS: POLYETHYLENE GLYCOL 3350 17 GM PACK PO SCH (08:12)
--- NOTE | 2017-02-26 11:27 | Internal Medicine Prog Note ---
Internal Medicine Subjective - Subjective Service Date: 02/26/17 Patient seen and examined:: with staff Patient is:: awake, verbal, in bed, confused Per staff patient has:: no adverse event Internal Medicine Objective - Results Result Diagrams: 02/11/17 06:19 02/11/17 06:19 Recent Labs: Laboratory Last Values WBC 5.7 Th/cmm (4.8-10.8) 02/11/17 06:19 RBC 4.67 Mil/cmm (4.30-5.70) 02/11/17 06:19 Hgb 12.7 gm/dL (13.2-17.3) L 02/11/17 06:19 Hct 38.0 % (39.0-49.0) L D 02/11/17 06:19 MCV 81.4 fl (80-99) 02/11/17 06:19 MCH 27.2 pg (26.0-30.0) 02/11/17 06:19 MCHC Differential 33.5 pg (28.0-36.0) 02/11/17 06:19 RDW 14.6 % (11.5-20.0) 02/11/17 06:19 Plt Count 167 Th/cmm (150-400) 02/11/17 06:19 MPV 9.0 fl 02/11/17 06:19 Neutrophils % 46.6 % (40.0-80.0) 02/11/17 06:19 Lymphocytes % 43.6 % (20.0-50.0) 02/11/17 06:19 Monocytes % 5.9 % (2.0-10.0) 02/11/17 06:19 Eosinophils % 3.8 % (0.0-5.0) 02/11/17 06:19 Basophils % 0.1 % (0.0-2.0) 02/11/17 06:19 Sodium 136 mEq/L (136-145) 02/11/17 06:19 Potassium 4.1 mEq/L (3.5-5.1) 02/11/17 06:19 Chloride 107 mEq/L (98-107) 02/11/17 06:19 Carbon Dioxide 26.6 mEq/L (21.0-31.0) 02/11/17 06:19 Anion Gap 6.5 (7.0-16.0) L 02/11/17 06:19 BUN 13 mg/dL (7-25) 02/11/17 06:19 Creatinine 0.7 mg/dL (0.7-1.3) 02/11/17 06:19 Est GFR ( Amer) > 60.0 ml/min (>90) 02/11/17 06:19 Est GFR (Non-Af Amer) > 60.0 ml/min 02/11/17 06:19 BUN/Creatinine Ratio 18.6 02/11/17 06:19 Glucose 96 mg/dL (70-105) 02/11/17 06:19 POC Glucose 97 MG/DL (70 - 105) 02/23/17 06:37 Calcium 8.3 mg/dL (8.6-10.3) L 02/11/17 06:19 Total Bilirubin 0.3 mg/dL (0.3-1.0) 02/11/17 06:19 AST 16 U/L (13-39) 02/11/17 06:19 ALT 9 U/L (7-52) 02/11/17 06:19 Alkaline Phosphatase 61 U/L (34-104) 02/11/17 06:19 Total Protein 6.5 gm/dL (6.0-8.3) 02/11/17 06:19 Albumin 3.3 gm/dL (4.2-5.5) L 02/11/17 06:19 Globulin 3.2 gm/dL 02/11/17 06:19 Albumin/Globulin Ratio 1.0 (1.0-1.8) 02/11/17 06:19 Triglycerides 62 mg/dL (<150) 02/07/17 21:00 Cholesterol 133 mg/dL (<200) 02/07/17 21:00 LDL Cholesterol Direct 97 mg/dL (75-193) 02/07/17 21:00 HDL Cholesterol 31 mg/dL (23-92) 02/07/17 21:00 TSH 4.20 uIU/ml (0.34-5.60) 02/07/17 21:00 Valproic Acid 34.8 ug/mL (50.0-100.0) L 02/18/17 13:10 Carbamazepine 6.7 ug/ml (4.0-12.0) 02/18/17 13:10 RPR NONREACTIVE (NONREACTIVE) 02/07/17 21:00 - Physical Exam Vitals and I&O: Vital Signs Temp 98.1 F 02/26/17 05:54 Pulse 98 02/26/17 05:54 Resp 19 02/26/17 05:54 BP 126/83 02/26/17 05:54 Pulse Ox 98 02/26/17 05:54 Intake & Output 02/25/17 02/26/17 02/26/17 18:59 06:59 18:59 Intake Total 1000 300 Balance 1000 300 Intake: Oral 1000 300 Other: # Voids 4 2 # Bowel Movements 2 1 Active Medications: Current Medications Acetaminophen (Tylenol) 650 mg PO Q6H PRN PRN Reason: Mild Pain/Headache/T above 101 Stop: 04/08/17 23:07 Last Admin: 02/25/17 21:19 Dose: 650 mg Al Hydrox/Mg Hydrox/Simethicone (Maalox) 30 ml PO Q6H PRN PRN Reason: Dyspepsia Stop: 04/08/17 23:07 Carbamazepine (Tegretol) 200 mg PO TID TAMIKO PRN Reason: Protocol Stop: 04/09/17 13:59 Last Admin: 02/26/17 08:11 Dose: 200 mg Divalproex Sodium (Depakote Sprinkle) 750 mg PO BID TAMIKO PRN Reason: Protocol Stop: 04/16/17 08:59 Last Admin: 02/26/17 08:11 Dose: 750 mg Lorazepam (Ativan) 1 mg PO Q6H PRN; Protocol PRN Reason: Anxiety/Agitation Stop: 04/08/17 23:07 Last Admin: 02/23/17 12:41 Dose: 1 mg Magnesium Hydroxide (Milk Of Magnesia) 30 ml PO HS PRN PRN Reason: Constipation Stop: 04/08/17 23:07 Last Admin: 02/23/17 20:29 Dose: 30 ml Polyethylene Glycol (Miralax) 17 gm PO DAILY [facility] Stop: 04/17/17 08:59 Last Admin: 02/26/17 08:12 Dose: Not Given Quetiapine Fumarate (Seroquel) 200 mg PO HS [facility] Stop: 04/26/17 20:59 Last Admin: 02/25/17 21:05 Dose: 200 mg Sodium Phosphate (Fleet Enema) 135 ml RC Q48H PRN PRN Reason: Constipation Stop: 04/08/17 23:10 Zolpidem Tartrate (Ambien) 5 mg PO HS PRN PRN Reason: Insomnia Stop: 04/08/17 23:07 Last Admin: 02/25/17 21:05 Dose: 5 mg General: alert, appears older HEENT: NC/AT, PERRLA, EOMI, anicteric sclerae, throat clear Neck: Supple, No thyromegaly, +2 carotid pulse wo bruit, No LAD, + JVD Cardiovascular: Normal S1, Normal S2, without murmur Abdomen: soft, non-tender, non-distended Neurological: no change Internal Medicine Assmt/Plan - Assessment Assessment: 1.FUNCTIONAL QUADRIPARESIS 2.SEIZURE DISORDER. 3.PSYCHOSIS. - Plan Plan: CONTINUE ON CURRENT MEDICATION AND DIET. Nutritional Asmnt/Malnutr-PDOC - Dietary Evaluation Malnutrition Findings (Please click <Entered> for more info): Nutritional Asmnt/Malnutrition Start: 02/11/17 18: 33 Text: Status: Complete Freq: Document 02/11/17 18:33 GSUN (Rec: 02/11/17 18:38 GSUN [email or web address]) Nutritional Asmnt/Malnutrition Patient General Information Nutritional Screening Moderate Risk Screening Diagnosis Bipolar disorder Pertinent Medical Hx/Surgical Hx Bipolar disorder, seizure disorder, depression Subjective Information 56 year old male from SNF. Pt was pleasant, appeared guarded , did not provide much meaningful responses, remained silent for most questions. Pt appeared overweight. Avg PO intake 75-100% of meals since adm, meeting nutritional needs . Pt deneid nutritional concerns at this time. Current Diet Order/ Nutrition Support DAVIS Pertinent Medications Maalox, MOM, Seroquel, Fleet Enema Pertinent Labs Reviewed. Nutritional Hx/Data Height 1.75 m Height (Calculated Centimeters) 175.3 Current Weight (lbs) 77.61 kg Weight (Calculated Kilograms) 77.6 Weight (Calculated Grams) 53424.7 [place] Body Weight 160 Weight Status Approriate GI Symptoms Usual diet at home [facility]: DAVIS , regular Skin Integrity/Comment: Clif Miranda. Skin intact. Current %PO Good (75-100%) Estimated Nutritional Goals BEE in Kcals: Using Current wt Calories/Kcals/Kg CBW 171.1lb/77.8kg Kcals Calculated 1945-2334kcal (25-30kcal/kg) Protein: Using Current wt Protein Calculated 78g (1g/kg) Fluid: ml 1945-2334ml (1ml/kcal) Nutritional Problem 1. Problem Problem No nutritional problem at this time. Intervention/Recommendation Comments 1. Continue with current diet order. Avg PO intake is adequate. Expected Outcomes/Goals Expected Outcomes/Goals 1. PO intake continue to meet at least 75% of estimated nutritional needs.
--- NOTE | 2017-02-27 00:24 | Progress Notes ---
DATE: 02/26/2017 Case was discussed with staff of the patient, reviewed records. The patient continues to be unpredictable, impulsive, says to himself. Continues to have poor insight. Continues to be unable to make safe plan for self-care. Easily agitated. The staff reports that he has been acting inappropriately reachable and angry with them. He is compliant with the medication with no side effects, no sedation, no nausea, no extrapyramidal symptoms. I did increase his Seroquel dose to 200 mg twice a day and we will continue the patient in group therapy, milieu therapy, adjust the medication as needed. JOB# [id number]
[2017-02-27] MEDS: POLYETHYLENE GLYCOL 3350 17 GM PACK PO SCH (10:26)
--- NOTE | 2017-02-27 20:26 | Internal Medicine Prog Note ---
Internal Medicine Subjective - Subjective Service Date: 02/27/17 Patient seen and examined:: with staff Patient is:: awake, verbal, in bed, confused Per staff patient has:: no adverse event Internal Medicine Objective - Results Result Diagrams: 02/11/17 06:19 02/11/17 06:19 Recent Labs: Laboratory Last Values WBC 5.7 Th/cmm (4.8-10.8) 02/11/17 06:19 RBC 4.67 Mil/cmm (4.30-5.70) 02/11/17 06:19 Hgb 12.7 gm/dL (13.2-17.3) L 02/11/17 06:19 Hct 38.0 % (39.0-49.0) L D 02/11/17 06:19 MCV 81.4 fl (80-99) 02/11/17 06:19 MCH 27.2 pg (26.0-30.0) 02/11/17 06:19 MCHC Differential 33.5 pg (28.0-36.0) 02/11/17 06:19 RDW 14.6 % (11.5-20.0) 02/11/17 06:19 Plt Count 167 Th/cmm (150-400) 02/11/17 06:19 MPV 9.0 fl 02/11/17 06:19 Neutrophils % 46.6 % (40.0-80.0) 02/11/17 06:19 Lymphocytes % 43.6 % (20.0-50.0) 02/11/17 06:19 Monocytes % 5.9 % (2.0-10.0) 02/11/17 06:19 Eosinophils % 3.8 % (0.0-5.0) 02/11/17 06:19 Basophils % 0.1 % (0.0-2.0) 02/11/17 06:19 Sodium 136 mEq/L (136-145) 02/11/17 06:19 Potassium 4.1 mEq/L (3.5-5.1) 02/11/17 06:19 Chloride 107 mEq/L (98-107) 02/11/17 06:19 Carbon Dioxide 26.6 mEq/L (21.0-31.0) 02/11/17 06:19 Anion Gap 6.5 (7.0-16.0) L 02/11/17 06:19 BUN 13 mg/dL (7-25) 02/11/17 06:19 Creatinine 0.7 mg/dL (0.7-1.3) 02/11/17 06:19 Est GFR ( Amer) > 60.0 ml/min (>90) 02/11/17 06:19 Est GFR (Non-Af Amer) > 60.0 ml/min 02/11/17 06:19 BUN/Creatinine Ratio 18.6 02/11/17 06:19 Glucose 96 mg/dL (70-105) 02/11/17 06:19 POC Glucose 97 MG/DL (70 - 105) 02/23/17 06:37 Calcium 8.3 mg/dL (8.6-10.3) L 02/11/17 06:19 Total Bilirubin 0.3 mg/dL (0.3-1.0) 02/11/17 06:19 AST 16 U/L (13-39) 02/11/17 06:19 ALT 9 U/L (7-52) 02/11/17 06:19 Alkaline Phosphatase 61 U/L (34-104) 02/11/17 06:19 Total Protein 6.5 gm/dL (6.0-8.3) 02/11/17 06:19 Albumin 3.3 gm/dL (4.2-5.5) L 02/11/17 06:19 Globulin 3.2 gm/dL 02/11/17 06:19 Albumin/Globulin Ratio 1.0 (1.0-1.8) 02/11/17 06:19 Triglycerides 62 mg/dL (<150) 02/07/17 21:00 Cholesterol 133 mg/dL (<200) 02/07/17 21:00 LDL Cholesterol Direct 97 mg/dL (75-193) 02/07/17 21:00 HDL Cholesterol 31 mg/dL (23-92) 02/07/17 21:00 TSH 4.20 uIU/ml (0.34-5.60) 02/07/17 21:00 Valproic Acid 34.8 ug/mL (50.0-100.0) L 02/18/17 13:10 Carbamazepine 6.7 ug/ml (4.0-12.0) 02/18/17 13:10 RPR NONREACTIVE (NONREACTIVE) 02/07/17 21:00 - Physical Exam Vitals and I&O: Vital Signs Temp 98.1 F 02/27/17 20:00 Pulse 88 02/27/17 20:00 Resp 19 02/27/17 20:00 BP 125/81 02/27/17 20:00 Pulse Ox 97 02/27/17 20:00 Intake & Output 02/27/17 02/27/17 02/28/17 06:59 18:59 06:59 Intake Total 240 1200 Balance 240 1200 Intake: Oral 240 1200 Other: # Voids 3 4 # Bowel Movements 0 0 Active Medications: Current Medications Acetaminophen (Tylenol) 650 mg PO Q6H PRN PRN Reason: Mild Pain/Headache/T above 101 Stop: 04/08/17 23:07 Last Admin: 02/25/17 21:19 Dose: 650 mg Al Hydrox/Mg Hydrox/Simethicone (Maalox) 30 ml PO Q6H PRN PRN Reason: Dyspepsia Stop: 04/08/17 23:07 Carbamazepine (Tegretol) 200 mg PO TID TAMIKO PRN Reason: Protocol Stop: 04/09/17 13:59 Last Admin: 02/27/17 15:01 Dose: 200 mg Divalproex Sodium (Depakote Sprinkle) 750 mg PO BID TAMIKO PRN Reason: Protocol Stop: 04/16/17 08:59 Last Admin: 02/27/17 17:28 Dose: 750 mg Lorazepam (Ativan) 1 mg PO Q6H PRN; Protocol PRN Reason: Anxiety/Agitation Stop: 04/08/17 23:07 Last Admin: 02/23/17 12:41 Dose: 1 mg Magnesium Hydroxide (Milk Of Magnesia) 30 ml PO HS PRN PRN Reason: Constipation Stop: 04/08/17 23:07 Last Admin: 02/23/17 20:29 Dose: 30 ml Polyethylene Glycol (Miralax) 17 gm PO DAILY [facility] Stop: 04/17/17 08:59 Last Admin: 02/27/17 10:26 Dose: Not Given Quetiapine Fumarate (Seroquel) 200 mg PO HS [facility] Stop: 04/26/17 20:59 Last Admin: 02/26/17 20:27 Dose: 200 mg Sodium Phosphate (Fleet Enema) 135 ml RC Q48H PRN PRN Reason: Constipation Stop: 04/08/17 23:10 Zolpidem Tartrate (Ambien) 5 mg PO HS PRN PRN Reason: Insomnia Stop: 04/08/17 23:07 Last Admin: 02/25/17 21:05 Dose: 5 mg General: alert, appears older HEENT: NC/AT, PERRLA, EOMI, anicteric sclerae, throat clear Neck: Supple, No thyromegaly, +2 carotid pulse wo bruit, No LAD, + JVD Cardiovascular: Normal S1, Normal S2, without murmur Abdomen: soft, non-tender, non-distended Neurological: no change Internal Medicine Assmt/Plan - Assessment Assessment: 1.FUNCTIONAL QUADRIPARESIS 2.SEIZURE DISORDER. 3.PSYCHOSIS. - Plan Plan: CONTINUE ON CURRENT MEDICATION AND DIET. Nutritional Asmnt/Malnutr-PDOC - Dietary Evaluation Malnutrition Findings (Please click <Entered> for more info): Nutritional Asmnt/Malnutrition Start: 02/11/17 18: 33 Text: Status: Complete Freq: Document 02/11/17 18:33 GSUN (Rec: 02/11/17 18:38 GSUN [email or web address]) Nutritional Asmnt/Malnutrition Patient General Information Nutritional Screening Moderate Risk Screening Diagnosis Bipolar disorder Pertinent Medical Hx/Surgical Hx Bipolar disorder, seizure disorder, depression Subjective Information 56 year old male from SNF. Pt was pleasant, appeared guarded , did not provide much meaningful responses, remained silent for most questions. Pt appeared overweight. Avg PO intake 75-100% of meals since adm, meeting nutritional needs . Pt deneid nutritional concerns at this time. Current Diet Order/ Nutrition Support DAVIS Pertinent Medications Maalox, MOM, Seroquel, Fleet Enema Pertinent Labs Reviewed. Nutritional Hx/Data Height 1.75 m Height (Calculated Centimeters) 175.3 Current Weight (lbs) 77.61 kg Weight (Calculated Kilograms) 77.6 Weight (Calculated Grams) 22136.7 [place] Body Weight 160 Weight Status Approriate GI Symptoms Usual diet at home [facility]: DAVIS , regular Skin Integrity/Comment: Clif Miranda. Skin intact. Current %PO Good (75-100%) Estimated Nutritional Goals BEE in Kcals: Using Current wt Calories/Kcals/Kg CBW 171.1lb/77.8kg Kcals Calculated 1945-2334kcal (25-30kcal/kg) Protein: Using Current wt Protein Calculated 78g (1g/kg) Fluid: ml 1945-2334ml (1ml/kcal) Nutritional Problem 1. Problem Problem No nutritional problem at this time. Intervention/Recommendation Comments 1. Continue with current diet order. Avg PO intake is adequate. Expected Outcomes/Goals Expected Outcomes/Goals 1. PO intake continue to meet at least 75% of estimated nutritional needs.
--- NOTE | 2017-02-28 00:04 | Progress Notes ---
DATE: 02/27/2017 Case was discussed with staff of the patient, reviewed records. The patient continues to stay in bed, isolating himself. However, he is more alert. He hardly carries on conversation; seems like he is selective in doing that, but not acting anyway dangerous. He is sleeping better, eating better. No side effects with the medication, no sedation, no nausea, and no extrapyramidal symptoms. His lab work showed low hemoglobin, high basophil. Chemistry panel showed low sodium at 134 and low creatinine. Depakote level was 44.3 and Tegretol level 6.7 now. We already deferred that to the medical doctor. RPR is nonreactive. We will continue to work with the patient in group therapy, milieu therapy, and adjust medications as needed. JOB# [id number]
[2017-02-28] MEDS: POLYETHYLENE GLYCOL 3350 17 GM PACK PO SCH (08:31)
--- NOTE | 2017-02-28 16:02 | Internal Medicine Prog Note ---
Internal Medicine Subjective - Subjective Service Date: 02/28/17 Patient seen and examined:: with staff Patient is:: awake, verbal, in bed, confused Per staff patient has:: no adverse event Internal Medicine Objective - Results Result Diagrams: 02/11/17 06:19 02/11/17 06:19 Recent Labs: Laboratory Last Values WBC 5.7 Th/cmm (4.8-10.8) 02/11/17 06:19 RBC 4.67 Mil/cmm (4.30-5.70) 02/11/17 06:19 Hgb 12.7 gm/dL (13.2-17.3) L 02/11/17 06:19 Hct 38.0 % (39.0-49.0) L D 02/11/17 06:19 MCV 81.4 fl (80-99) 02/11/17 06:19 MCH 27.2 pg (26.0-30.0) 02/11/17 06:19 MCHC Differential 33.5 pg (28.0-36.0) 02/11/17 06:19 RDW 14.6 % (11.5-20.0) 02/11/17 06:19 Plt Count 167 Th/cmm (150-400) 02/11/17 06:19 MPV 9.0 fl 02/11/17 06:19 Neutrophils % 46.6 % (40.0-80.0) 02/11/17 06:19 Lymphocytes % 43.6 % (20.0-50.0) 02/11/17 06:19 Monocytes % 5.9 % (2.0-10.0) 02/11/17 06:19 Eosinophils % 3.8 % (0.0-5.0) 02/11/17 06:19 Basophils % 0.1 % (0.0-2.0) 02/11/17 06:19 Sodium 136 mEq/L (136-145) 02/11/17 06:19 Potassium 4.1 mEq/L (3.5-5.1) 02/11/17 06:19 Chloride 107 mEq/L (98-107) 02/11/17 06:19 Carbon Dioxide 26.6 mEq/L (21.0-31.0) 02/11/17 06:19 Anion Gap 6.5 (7.0-16.0) L 02/11/17 06:19 BUN 13 mg/dL (7-25) 02/11/17 06:19 Creatinine 0.7 mg/dL (0.7-1.3) 02/11/17 06:19 Est GFR ( Amer) > 60.0 ml/min (>90) 02/11/17 06:19 Est GFR (Non-Af Amer) > 60.0 ml/min 02/11/17 06:19 BUN/Creatinine Ratio 18.6 02/11/17 06:19 Glucose 96 mg/dL (70-105) 02/11/17 06:19 POC Glucose 97 MG/DL (70 - 105) 02/23/17 06:37 Calcium 8.3 mg/dL (8.6-10.3) L 02/11/17 06:19 Total Bilirubin 0.3 mg/dL (0.3-1.0) 02/11/17 06:19 AST 16 U/L (13-39) 02/11/17 06:19 ALT 9 U/L (7-52) 02/11/17 06:19 Alkaline Phosphatase 61 U/L (34-104) 02/11/17 06:19 Total Protein 6.5 gm/dL (6.0-8.3) 02/11/17 06:19 Albumin 3.3 gm/dL (4.2-5.5) L 02/11/17 06:19 Globulin 3.2 gm/dL 02/11/17 06:19 Albumin/Globulin Ratio 1.0 (1.0-1.8) 02/11/17 06:19 Triglycerides 62 mg/dL (<150) 02/07/17 21:00 Cholesterol 133 mg/dL (<200) 02/07/17 21:00 LDL Cholesterol Direct 97 mg/dL (75-193) 02/07/17 21:00 HDL Cholesterol 31 mg/dL (23-92) 02/07/17 21:00 TSH 4.20 uIU/ml (0.34-5.60) 02/07/17 21:00 Valproic Acid 34.8 ug/mL (50.0-100.0) L 02/18/17 13:10 Carbamazepine 6.7 ug/ml (4.0-12.0) 02/18/17 13:10 RPR NONREACTIVE (NONREACTIVE) 02/07/17 21:00 - Physical Exam Vitals and I&O: Vital Signs Temp 98.3 F 02/28/17 06:27 Pulse 91 02/28/17 06:27 Resp 18 02/28/17 08:00 BP 102/69 02/28/17 06:27 Pulse Ox 98 02/28/17 06:27 Intake & Output 02/27/17 02/28/17 02/28/17 18:59 06:59 18:59 Intake Total 1320 Balance 1320 Intake: Oral 1320 Other: # Voids 3 # Bowel Movements 0 Active Medications: Current Medications Acetaminophen (Tylenol) 650 mg PO Q6H PRN PRN Reason: Mild Pain/Headache/T above 101 Stop: 04/08/17 23:07 Last Admin: 02/25/17 21:19 Dose: 650 mg Al Hydrox/Mg Hydrox/Simethicone (Maalox) 30 ml PO Q6H PRN PRN Reason: Dyspepsia Stop: 04/08/17 23:07 Carbamazepine (Tegretol) 200 mg PO TID TAMIKO PRN Reason: Protocol Stop: 04/09/17 13:59 Last Admin: 02/28/17 15:11 Dose: 200 mg Divalproex Sodium (Depakote Sprinkle) 750 mg PO BID TAMIKO PRN Reason: Protocol Stop: 04/16/17 08:59 Last Admin: 02/28/17 08:38 Dose: 750 mg Donepezil HCl (Aricept) 5 mg PO HS TAMIKO Stop: 04/29/17 20:59 Lorazepam (Ativan) 1 mg PO Q6H PRN; Protocol PRN Reason: Anxiety/Agitation Stop: 04/08/17 23:07 Last Admin: 02/23/17 12:41 Dose: 1 mg Magnesium Hydroxide (Milk Of Magnesia) 30 ml PO HS PRN PRN Reason: Constipation Stop: 04/08/17 23:07 Last Admin: 02/23/17 20:29 Dose: 30 ml Polyethylene Glycol (Miralax) 17 gm PO DAILY TAMIKO Stop: 04/17/17 08:59 Last Admin: 02/28/17 08:31 Dose: Not Given Quetiapine Fumarate 200 mg/ (Quetiapine Fumarate 25 mg) 225 mg PO HS TAMIKO Stop: 04/29/17 20:59 Sodium Phosphate (Fleet Enema) 135 ml RC Q48H PRN PRN Reason: Constipation Stop: 04/08/17 23:10 Zolpidem Tartrate (Ambien) 5 mg PO HS PRN PRN Reason: Insomnia Stop: 04/08/17 23:07 Last Admin: 02/25/17 21:05 Dose: 5 mg General: alert, appears older HEENT: NC/AT, PERRLA, EOMI, anicteric sclerae, throat clear Neck: Supple, No thyromegaly, +2 carotid pulse wo bruit, No LAD, + JVD Cardiovascular: Normal S1, Normal S2, without murmur Abdomen: soft, non-tender, non-distended Neurological: no change Internal Medicine Assmt/Plan - Assessment Assessment: 1.FUNCTIONAL QUADRIPARESIS 2.SEIZURE DISORDER. 3.PSYCHOSIS. - Plan Plan: CONTINUE ON CURRENT MEDICATION AND DIET. Nutritional Asmnt/Malnutr-PDOC - Dietary Evaluation Malnutrition Findings (Please click <Entered> for more info): Nutritional Asmnt/Malnutrition Start: 02/11/17 18: 33 Text: Status: Complete Freq: Document 02/11/17 18:33 GSUN (Rec: 02/11/17 18:38 [email or web address]) Nutritional Asmnt/Malnutrition Patient General Information Nutritional Screening Moderate Risk Screening Diagnosis Bipolar disorder Pertinent Medical Hx/Surgical Hx Bipolar disorder, seizure disorder, depression Subjective Information 56 year old male from SNF. Pt was pleasant, appeared guarded , did not provide much meaningful responses, remained silent for most questions. Pt appeared overweight. Avg PO intake 75-100% of meals since adm, meeting nutritional needs . Pt deneid nutritional concerns at this time. Current Diet Order/ Nutrition Support DAVIS Pertinent Medications Maalox, MOM, Seroquel, Fleet Enema Pertinent Labs Reviewed. Nutritional Hx/Data Height 1.75 m Height (Calculated Centimeters) 175.3 Current Weight (lbs) 77.61 kg Weight (Calculated Kilograms) 77.6 Weight (Calculated Grams) 78113.7 [place] Body Weight 160 Weight Status Approriate GI Symptoms Usual diet at home [facility]: DAVIS , regular Skin Integrity/Comment: Clif Miranda. Skin intact. Current %PO Good (75-100%) Estimated Nutritional Goals BEE in Kcals: Using Current wt Calories/Kcals/Kg CBW 171.1lb/77.8kg Kcals Calculated 1945-2334kcal (25-30kcal/kg) Protein: Using Current wt Protein Calculated 78g (1g/kg) Fluid: ml 1945-2334ml (1ml/kcal) Nutritional Problem 1. Problem Problem No nutritional problem at this time. Intervention/Recommendation Comments 1. Continue with current diet order. Avg PO intake is adequate. Expected Outcomes/Goals Expected Outcomes/Goals 1. PO intake continue to meet at least 75% of estimated nutritional needs.
--- NOTE | 2017-03-01 02:10 | Progress Notes ---
DATE: 02/28/2017 Case was discussed with staff of the patient, reviewed records. The patient continues to be talking to himself. Continues to look disheveled, disorganized, staring and unable to carrying a conversation or make safe plan for self-care. I will be initiating Aricept on this patient as he does not seem to be able to know anything about his condition, believes he may be demented and improve his cognition. His Seroquel dose was increased to 200 mg twice a day. Few days ago, I will be making further changes to 225 twice a day. We will continue to work with the patient in group therapy, milieu therapy, adjust medication as needed He has taken it only at bedtime. JOB# [id number]
[2017-03-01] MEDS: POLYETHYLENE GLYCOL 3350 17 GM PACK PO SCH (09:29)
--- NOTE | 2017-03-01 13:57 | Internal Medicine Prog Note ---
Internal Medicine Subjective - Subjective Service Date: 03/01/17 Patient seen and examined:: without staff Patient is:: awake, verbal, in bed, confused Per staff patient has:: no adverse event Internal Medicine Objective - Results Result Diagrams: 02/11/17 06:19 02/11/17 06:19 Recent Labs: Laboratory Last Values WBC 5.7 Th/cmm (4.8-10.8) 02/11/17 06:19 RBC 4.67 Mil/cmm (4.30-5.70) 02/11/17 06:19 Hgb 12.7 gm/dL (13.2-17.3) L 02/11/17 06:19 Hct 38.0 % (39.0-49.0) L D 02/11/17 06:19 MCV 81.4 fl (80-99) 02/11/17 06:19 MCH 27.2 pg (26.0-30.0) 02/11/17 06:19 MCHC Differential 33.5 pg (28.0-36.0) 02/11/17 06:19 RDW 14.6 % (11.5-20.0) 02/11/17 06:19 Plt Count 167 Th/cmm (150-400) 02/11/17 06:19 MPV 9.0 fl 02/11/17 06:19 Neutrophils % 46.6 % (40.0-80.0) 02/11/17 06:19 Lymphocytes % 43.6 % (20.0-50.0) 02/11/17 06:19 Monocytes % 5.9 % (2.0-10.0) 02/11/17 06:19 Eosinophils % 3.8 % (0.0-5.0) 02/11/17 06:19 Basophils % 0.1 % (0.0-2.0) 02/11/17 06:19 Sodium 136 mEq/L (136-145) 02/11/17 06:19 Potassium 4.1 mEq/L (3.5-5.1) 02/11/17 06:19 Chloride 107 mEq/L (98-107) 02/11/17 06:19 Carbon Dioxide 26.6 mEq/L (21.0-31.0) 02/11/17 06:19 Anion Gap 6.5 (7.0-16.0) L 02/11/17 06:19 BUN 13 mg/dL (7-25) 02/11/17 06:19 Creatinine 0.7 mg/dL (0.7-1.3) 02/11/17 06:19 Est GFR ( Amer) > 60.0 ml/min (>90) 02/11/17 06:19 Est GFR (Non-Af Amer) > 60.0 ml/min 02/11/17 06:19 BUN/Creatinine Ratio 18.6 02/11/17 06:19 Glucose 96 mg/dL (70-105) 02/11/17 06:19 POC Glucose 97 MG/DL (70 - 105) 02/23/17 06:37 Calcium 8.3 mg/dL (8.6-10.3) L 02/11/17 06:19 Total Bilirubin 0.3 mg/dL (0.3-1.0) 02/11/17 06:19 AST 16 U/L (13-39) 02/11/17 06:19 ALT 9 U/L (7-52) 02/11/17 06:19 Alkaline Phosphatase 61 U/L (34-104) 02/11/17 06:19 Total Protein 6.5 gm/dL (6.0-8.3) 02/11/17 06:19 Albumin 3.3 gm/dL (4.2-5.5) L 02/11/17 06:19 Globulin 3.2 gm/dL 02/11/17 06:19 Albumin/Globulin Ratio 1.0 (1.0-1.8) 02/11/17 06:19 Triglycerides 62 mg/dL (<150) 02/07/17 21:00 Cholesterol 133 mg/dL (<200) 02/07/17 21:00 LDL Cholesterol Direct 97 mg/dL (75-193) 02/07/17 21:00 HDL Cholesterol 31 mg/dL (23-92) 02/07/17 21:00 TSH 4.20 uIU/ml (0.34-5.60) 02/07/17 21:00 Valproic Acid 34.8 ug/mL (50.0-100.0) L 02/18/17 13:10 Carbamazepine 6.7 ug/ml (4.0-12.0) 02/18/17 13:10 RPR NONREACTIVE (NONREACTIVE) 02/07/17 21:00 - Physical Exam Vitals and I&O: Vital Signs Temp 97.8 F 03/01/17 06:27 Pulse 86 03/01/17 06:27 Resp 20 03/01/17 06:27 BP 108/75 03/01/17 06:27 Pulse Ox 98 03/01/17 06:27 Intake & Output 02/28/17 03/01/17 03/01/17 18:59 06:59 18:59 Intake Total 2400 120 Balance 2400 120 Intake: Oral 2400 120 Other: # Voids 4 3 # Bowel Movements 0 Active Medications: Current Medications Acetaminophen (Tylenol) 650 mg PO Q6H PRN PRN Reason: Mild Pain/Headache/T above 101 Stop: 04/08/17 23:07 Last Admin: 02/25/17 21:19 Dose: 650 mg Al Hydrox/Mg Hydrox/Simethicone (Maalox) 30 ml PO Q6H PRN PRN Reason: Dyspepsia Stop: 04/08/17 23:07 Carbamazepine (Tegretol) 200 mg PO TID TAMIKO PRN Reason: Protocol Stop: 04/09/17 13:59 Last Admin: 03/01/17 10:00 Dose: 200 mg Divalproex Sodium (Depakote Sprinkle) 750 mg PO BID TAMIKO PRN Reason: Protocol Stop: 04/16/17 08:59 Last Admin: 03/01/17 10:00 Dose: 750 mg Donepezil HCl (Aricept) 5 mg PO HS TAMIKO Stop: 04/29/17 20:59 Last Admin: 02/28/17 20:27 Dose: 5 mg Lorazepam (Ativan) 1 mg PO Q6H PRN; Protocol PRN Reason: Anxiety/Agitation Stop: 04/08/17 23:07 Last Admin: 02/23/17 12:41 Dose: 1 mg Magnesium Hydroxide (Milk Of Magnesia) 30 ml PO HS PRN PRN Reason: Constipation Stop: 04/08/17 23:07 Last Admin: 02/23/17 20:29 Dose: 30 ml Polyethylene Glycol (Miralax) 17 gm PO DAILY TAMIKO Stop: 04/17/17 08:59 Last Admin: 03/01/17 09:29 Dose: Not Given Quetiapine Fumarate 200 mg/ (Quetiapine Fumarate 25 mg) 225 mg PO HS TAMIKO Stop: 04/29/17 20:59 Last Admin: 02/28/17 20:28 Dose: 225 mg Sodium Phosphate (Fleet Enema) 135 ml RC Q48H PRN PRN Reason: Constipation Stop: 04/08/17 23:10 Zolpidem Tartrate (Ambien) 5 mg PO HS PRN PRN Reason: Insomnia Stop: 04/08/17 23:07 Last Admin: 02/25/17 21:05 Dose: 5 mg General: alert, appears older HEENT: NC/AT, PERRLA, EOMI, anicteric sclerae, throat clear Neck: Supple, No thyromegaly, +2 carotid pulse wo bruit, No LAD, + JVD Cardiovascular: Normal S1, Normal S2, without murmur Abdomen: soft, non-tender, non-distended Neurological: no change Internal Medicine Assmt/Plan - Assessment Assessment: 1.FUNCTIONAL QUADRIPARESIS 2.SEIZURE DISORDER. 3.PSYCHOSIS. - Plan Plan: CONTINUE ON CURRENT MEDICATION AND DIET. Nutritional Asmnt/Malnutr-PDOC - Dietary Evaluation Malnutrition Findings (Please click <Entered> for more info): Nutritional Asmnt/Malnutrition Start: 02/11/17 18: 33 Text: Status: Complete Freq: Document 02/11/17 18:33 GSUN (Rec: 02/11/17 18:38 [email or web address]) Nutritional Asmnt/Malnutrition Patient General Information Nutritional Screening Moderate Risk Screening Diagnosis Bipolar disorder Pertinent Medical Hx/Surgical Hx Bipolar disorder, seizure disorder, depression Subjective Information 56 year old male from SNF. Pt was pleasant, appeared guarded , did not provide much meaningful responses, remained silent for most questions. Pt appeared overweight. Avg PO intake 75-100% of meals since adm, meeting nutritional needs . Pt deneid nutritional concerns at this time. Current Diet Order/ Nutrition Support DAVIS Pertinent Medications Maalox, MOM, Seroquel, Fleet Enema Pertinent Labs Reviewed. Nutritional Hx/Data Height 1.75 m Height (Calculated Centimeters) 175.3 Current Weight (lbs) 77.61 kg Weight (Calculated Kilograms) 77.6 Weight (Calculated Grams) 43363.7 [place] Body Weight 160 Weight Status Approriate GI Symptoms Usual diet at home [facility]: DAVIS , regular Skin Integrity/Comment: Clif 14. Skin intact. Current %PO Good (75-100%) Estimated Nutritional Goals BEE in Kcals: Using Current wt Calories/Kcals/Kg CBW 171.1lb/77.8kg Kcals Calculated 1945-2334kcal (25-30kcal/kg) Protein: Using Current wt Protein Calculated 78g (1g/kg) Fluid: ml 1945-2334ml (1ml/kcal) Nutritional Problem 1. Problem Problem No nutritional problem at this time. Intervention/Recommendation Comments 1. Continue with current diet order. Avg PO intake is adequate. Expected Outcomes/Goals Expected Outcomes/Goals 1. PO intake continue to meet at least 75% of estimated nutritional needs.
--- NOTE | 2017-03-02 01:24 | Progress Notes ---
DATE: 03/01/2017 SUBJECTIVE: Case was discussed with staff of the patient, reviewed records. The patient continues to be in bed, refusing to take showers, continues to be resistant to care, unpredictable and impulses, needing redirection. I asked him why he does not take a shower, he would not answer me. He says he is fine. No further information. He is compliant with the medication with no side effects, no sedation, no nausea. Staff is concerned that they need to move him and he is resistant because he will end up having ____. PLAN: I did increase his Seroquel to ____ mg yesterday and there is no sedation, no nausea, no extrapyramidal symptoms. We will continue to work with the patient in group therapy, milieu therapy, adjust medication as needed. JOB# [id number]
--- NOTE | 2017-03-11 13:00 | Discharge Summary ---
DATE OF DISCHARGE: 03/01/2017 IDENTIFYING INFORMATION: The patient is a 56-year-old male. CHIEF COMPLAINT: No answer. HISTORY OF PRESENT ILLNESS: The patient was referred from a nursing facility because of agitation. He was a poor historian, unable to carry out conversation or tell me why he was in the facility or answer any question, though his eyes were open and he was able to look at me, but would not answer any of my question. With the history being on psychotropic medication, he was on Depakote, Tegretol, and Seroquel. He was not sure why he was on these medications and unable to answer those questions. PAST PSYCHIATRIC HISTORY: Psychosis and mood disorder. ALLERGIES: No known drug allergies. COURSE IN THE HOSPITAL: The patient was continued on Depakote 750 mg twice a day and Aricept was initiated 5 mg at bedtime and magnesium hydroxide was continued as needed. He was also on ____ increased over the course of his stay. He was started on 25 and increased to 225 mg at bedtime and he was on Tegretol 200 mg three times a day. He also had a seizure disorder and he was paraplegic. The patient, in general, was able to answer questions sometimes, but mostly would stay in bed. There was a number for a cousin to speak who has power of litigation attorney associate. He left me a number to call and I tried to call many times and I was not even able to leave him a message because his voicemail was not setup, so I was unable to communicate with the family. However, he got to a situation where he had achieved basic level of function and was not acting anyway dangerous, he was sleeping well, eating well, so we felt he could be discharged to a lesser level of care. DISCHARGE DIAGNOSIS: AXIS I: Bipolar disorder with cognitive disorder, not otherwise specified. MEDICAL DIAGNOSIS: Seizure disorder. The patient will go back to correction and will follow up with psychiatrist and primary care physician. EXPECTED OUTCOME: Stable if the patient complies with the above. JOB# [id number]
== END 2017-03-01 18:00 | disposition home or self-care (01) | DRG 885 ==
LOC: ER 20:12 → GERO 22:00
PROVIDERS: ADMIT Psychiatry & Neurology Psychiatry; ATTEND Psychiatry & Neurology Psychiatry
DX: F31.9 Bipolar disorder, unspecified (principal); G82.50 Quadriplegia, unspecified; F03.90 Unspecified dementia, unspecified severity, without behavioral disturbance, psychotic disturbance, mood disturbance, and anxiety; G40.909 Epilepsy, unspecified, not intractable, without status epilepticus; F29 Unspecified psychosis not due to a substance or known physiological condition; I10 Essential (primary) hypertension; K21.9 Gastro-esophageal reflux disease without esophagitis; F20.9 Schizophrenia, unspecified
CPT/HCPCS: 36415-UA; 80053-TC; 80061-TC; 80156-TC; 80164-TC; 82948-90; 84443-TC; 85025-TC; 86592-TC; 93005; Z7610

== ENCOUNTER 2018-01-09 18:07 | Inpatient (IN) | payer MEDICARE, OTHER ==
--- NOTE | 2018-01-09 18:43 | ED Physician Chart ---
ED Chief Complaint/HPI - Patient Information Date Seen:: 01/09/18 Time Seen:: 18:30 Chief Complaint:: agitation History of Present Illness:: Patient has reportedly been throwing food trays. He has had a 10 pound weight loss over the last 1 month. Allergies:: Allergies Allergy/AdvReac Type Severity Reaction Status Date / Time No Known Allergies Allergy Verified 02/07/17 21:11 Vitals:: Vital Signs - 8 hr 01/09/18 18:18 Temp 98.9 F HR 99 RR 16 BP 135/81 O2 Sat % 98 Historian:: Patient Review:: Transfer documents Reviewed ED Review of Systems - Review of Systems General/Constitutional: No fever, No chills, No weight loss, No weakness, No diaphoresis, No edema, No loss of appetite Skin: No skin lesions, No rash, No bruising Head: No headache, No light-headedness Eyes: No loss of vision, No pain, No diplopia ENT: No earache, No nasal drainage, No sore throat, No tinnitus Neck: No neck pain, No swelling, No thyromegaly, No stiffness, No mass noted Cardio Vascular: No chest pain, No palpitations, No PND, No orthopnea, No edema Pulmonary: No SOB, No cough, No sputum, No wheezing GI: No nausea, No vomiting, No diarrhea, No pain, No melena, No hematochezia, No constipation, No hematemesis G/U: No dysuria, No frequency, No hematuria Musculoskeletal: No bone or joint pain, No back pain, No muscle pain Endocrine: No polyuria, No polydipsia Psychiatric: Prior psych history, Other (aggressive behavior) Hematopoietic: No bruising, No lymphadenopathy Allergic/Immuno: No urticaria, No angioedema Neurological: Weakness, Other (quadriplegia) ED Past Medical History - Past Medical History Past Medical History: HTN, Seizures, Other (benign prostatic hypertrophy; cognitive communication deficit; status post gastrointestinal hemorrhage; quadriplegia; seizure disorder; schizophrenia; I polar disorder; depression; depression; anxiety) Family History: Other (not available) Social History: Care Facility Surgical History: other (unavailable) Psychiatricy History: Depression, Schizophrenia, Bipolar, Other (depression and anxiety) Medication: Reviewed ( ) Family Medical History - Family Member Mother History Unknown: Yes ED Physical Exam - Physical Examination General/Constitutional: Awake, Well-developed, well-nourished, Alert Other Gen/Cons comments:: Nonverbal low follow simple commands Head: Atraumatic Eyes: Lids, conjuctiva normal, PERRL Other Skin comments:: few small crusts both hands ENMT: External ears, nose nl, Oropharynx nl (4 out of 4 for abdominal disease) Neck: No bruit, No mass Respiratory: Nl effort/Exclusion, Clear to Auscultation Cardio Vascular: RRR GI: No tenderness/rebounding/guarding, No organomegaly, No hernia, Nondistended : No CVA tenderness Extremities: No tenderness or effusion Other Neuro/Psych comments:: Quadriplegia ED Labs/Radiology/EKG Results - Lab Results Results: Laboratory Results - last 24 hr 01/09/18 18:45 WBC 7.7 RBC 4.64 Hgb 12.7 Hct 38.1 L MCV 82.1 MCH 27.3 MCHC Differential 33.2 RDW 13.5 Plt Count 330 MPV 7.2 Neutrophils % 69.7 Lymphocytes % 20.7 Monocytes % 7.6 Eosinophils % 1.4 Basophils % 0.6 - EKG Interpretations Rate & Rhythm: normal sinus rhythm with a rate of 96 Sod: normal ED Assessment - Assessment General Assessment: endorsed to Dr. Abrams at 1900 ED Septic Shock - <6hrs of presentation: Vital Signs: Vital Signs - 8 hr 01/09/18 18:18 Temp 98.9 F HR 99 RR 16 BP 135/81 O2 Sat % 98 ED Reassessment (Disposition) - Reassessment Reassessment Condition:: Unchanged - Diagnosis Diagnosis:: Schizophrenia; bipolar quadriplegia; depression - Patient Disposition Admitted to:: [facility] Admitting Medical Physician:: Wanda James Admitting Psych Physician:: Tracie Mccord Condition at Disposition:: Stable, Unchanged
[2018-01-09 18:57] LABS: % BASOPHILS 0.6 % (0.0-2.0); % EOSINOPHILS 1.4 % (0.0-5.0); % LYMPHOCYTES 20.7 % (20.0-50.0); % MONOCYTES 7.6 % (2.0-10.0); % NEUTROPHILS 69.7 % (40.0-80.0); EOSINOPHILE ABSOLUTE 0.1 Th/cmm (0.1-0.4); HEMATOCRIT 38.1 % (41.0-60); HEMOGLOBIN 12.7 gm/dL (12-16); LYMPHOCYTE ABSOLUTE 1.6 Th/cmm (1.5-3.0); MEAN CELL VOLUME 82.1 fl (80-99); MEAN CORPUSCULAR HEMOGLOBIN 27.3 pg (26.0-30.0); MEAN CORPUSCULAR HGB CONC 33.2 pg (28.0-36.0); MEAN PLATELET VOLUME 7.2 fl; MONOCYTE ABSOLUTE 0.6 Th/cmm (0.3-1.0); NEUTROPHILE ABSOLUTE 5.4 Th/cmm (1.8-8.0); PLATELET COUNT 330 Th/cmm (150-400); RED BLOOD COUNT 4.64 Mil/cmm (4.30-5.70); RED CELL DISTRIBUTION WIDTH 13.5 % (11.5-20.0); WHITE BLOOD COUNT 7.7 Th/cmm (4.8-10.8)
[2018-01-09 19:12] LABS: ALB/GLOB RATIO 0.9 (1.0-1.8); ALBUMIN 3.7 gm/dL (4.2-5.5); ALKALINE PHOSPHATASE 56 U/L (34-104); ANION GAP 10.7 (7.0-16.0); BILIRUBIN,TOTAL 0.3 mg/dL (0.3-1.0); BUN - UREA NITROGEN 12 mg/dL (7-25); CARBON DIOXIDE 24.3 mEq/L (21.0-31.0); CHLORIDE 104 mEq/L (98-107); CHOLESTEROL 162 mg/dL (<200); CREATININE - SERUM 0.7 mg/dL (0.7-1.3); GFR AFRICAN-AMERICAN > 60.0 ml/min (>90); GFR NON AFRICAN-AMERICAN > 60.0 ml/min; GLUCOSE 112 mg/dL (70-105); HDL -HIGH DENSITY LIPOPROTEIN 23 mg/dL (23-92); SGOT 23 U/L (13-39); SGPT/ALT 17 U/L (7-52); SODIUM SERUM 135 mEq/L (136-145); TOTAL PROTEIN,SERUM 7.7 gm/dL (6.0-8.3); TRIGLYCERIDES 131 mg/dL (<150)
[2018-01-09 20:27] LABS: A1C % 5.5 % (4.0-6.0)
[2018-01-09] MEDS ORDERED: Magnesium Hydroxide (MOM) 30 mL UDC PO PRN (20:37)
[2018-01-09] MEDS ORDERED: Maalox 30 mL Cup PO PRN (20:50)
[2018-01-09 21:00] VITALS: BP 120/82
[2018-01-10] MEDS ORDERED: Multivitamin Tab PO SCH (09:00)
[2018-01-10] MEDS: Multivitamin w/ Minerals Tab PO SCH (09:26)
[2018-01-10] MEDS: Econazole Nitrate 1% Cream 15 gm Tube TP SCH ×2 (10:28→17:59)
--- NOTE | 2018-01-10 12:46 | Psychiatric Evaluation ---
DATE OF SERVICE: 01/10/2018 IDENTIFYING INFORMATION: The patient is a 57-year-old male. CHIEF COMPLAINT: No answer. HISTORY OF PRESENT ILLNESS: The patient was referred from a nursing facility. Apparently, he has been agitated, who was throwing food trays causing 10-pound weight loss in a month, self-inflicted wounds from biting his fingers. The patient apparently is having bedsores according to the staff. The patient was staring at nothing. When I talked to him, would not answer any of my questions. He is a well-known because I have seen him before in previous admission few months ago. Unable to participate in meaningful conversation or make safe plan for self-care. The patient is unable to answer any questions and not even one word or one letter. PAST PSYCHIATRIC HISTORY: History of psychosis in the past. No more information is available. ALLERGIES: No known drug allergies. PAST MEDICAL HISTORY: The patient is with a history of seizure disorder. He is on muscle relaxants. He has bedsores with high cholesterol. He has benign prostatic hypertrophy with multiple wounds and he is on wound care. FAMILY AND SOCIAL HISTORY: Unobtainable in the past when he was admitted here. He has a cousin that was calling and I kept calling back, could not get in touch. MENTAL STATUS EXAMINATION: The patient is appropriately dressed in hospital gown, appears to be disheveled, staring. Unable to talk or say anything, unpredictable and impulsive, internally preoccupied. Unable to do a formal mental status examination. He was unable to tell me his age, date of , why he is here or answer anything regarding suicide, homicide or hallucination. Was unable to test his memory. His insight and judgment is impaired. IMPRESSION: AXIS I: Psychosis, not otherwise specified. MEDICAL DIAGNOSIS: Per medical doctor. PLAN: The patient will be controlled on medications, Seroquel 150 daily and 200 mg at bedtime. The patient is to continue with his medication for the seizure disorder. He is on seizure precaution. He is on Tegretol 200 mg 3 times a day and Depakote 1000 mg twice a day. He is also on Aricept 10 mg at bedtime and Lopid 600 mg once a day and at bedtime, and Remeron. ESTIMATED LENGTH OF STAY: 7-10 days. DISCHARGE CRITERIA: Decreasing agitation, psychosis, eating better. After discharge, outpatient treatment. [facility]# [id number]
--- NOTE | 2018-01-10 22:00 | History & Physical ---
ADMIT DATE: 01/10/2018 HISTORY OF PRESENT ILLNESS: The patient is a 57-year-old male with long history of hyperlipidemia, benign prostatic hypertrophy, dementia, psychosis and seizure disorder, admitted to [facility] Department, Dr. Mccord's service for evaluation and treatment. The patient is a very poor historian. No fever, no chills, no chest pain, no shortness of breath, no nausea, no vomiting. PAST MEDICAL HISTORY: Significant for benign prostatic hypertrophy, hyperlipidemia, seizure disorder, dementia. PAST SURGICAL HISTORY: None. SOCIAL HISTORY: No smoking, no alcohol, no drugs. FAMILY HISTORY: Noncontributory. REVIEW OF SYSTEMS: IMMUNO SYSTEM: No history of chronic renal disorder. CARDIOVASCULAR SYSTEM: No coronary artery disease. ENDOCRINE SYSTEM: No diabetes or thyroid problem. GASTROINTESTINAL SYSTEM: No upper or lower gastrointestinal bleed. NEUROLOGICAL: He has history of seizure disorder. ____. HEMATOLOGICAL SYSTEM: No bleeding tendency. RESPIRATORY SYSTEM: No asthma. GENITOURINARY: He has benign prostatic hypertrophy. PHYSICAL EXAMINATION: GENERAL: He is awake, not coherent. VITAL SIGNS: Temperature is 100.7, heart rate 100, blood pressure is 103/67. HEENT: Normocephalic. Pupils reacting to light and accommodation. Sclerae clear. NECK: Supple. Negative for lymphadenopathy, JVD or bruit. CHEST: Entry of air bilaterally normal. No rhonchi or wheezing. HEART: S1, S2 normal. No murmur or gallop rhythm. ABDOMEN: Soft, bowel sounds positive. EXTREMITIES: No edema. BACK: ____. SKIN: Intact. GENITALIA AND RECTAL: No complaint. NEUROLOGICAL: He is awake, not coherent, moving upper and lower extremities. LABORATORY DATA: White blood 7.7, hemoglobin 12.7, hematocrit 38.1, platelets 330,000. Sodium 135, potassium 4, BUN is 12, creatinine 0.7. Cholesterol 162. TSH 2.86. ASSESSMENT: 1. Seizure disorder. 2. Hyperlipidemia. 3. Benign prostatic hypertrophy. 4. Dementia. 5. Psychosis. PLAN: The patient admitted to [facility] Department, Dr. Mccord's service for evaluation and treatment. The patient is clinically stable for activity. Thank you, Dr. Mccord, for asking me to see your patient. [facility]# [id number]
[2018-01-11] MEDS: Multivitamin w/ Minerals Tab PO SCH (08:44)
[2018-01-11] MEDS: Econazole Nitrate 1% Cream 15 gm Tube TP SCH ×2 (10:12→16:32)
--- NOTE | 2018-01-11 21:07 | Internal Medicine Prog Note ---
Internal Medicine Subjective - Subjective Service Date: 01/11/18 Patient seen and examined:: with staff Patient is:: awake, non-verbal, in bed, confused Per staff patient has:: no adverse event Internal Medicine Objective - Results Result Diagrams: 01/09/18 18:45 01/09/18 18:45 Recent Labs: Laboratory Last Values WBC 7.7 Th/cmm (4.8-10.8) 01/09/18 18:45 RBC 4.64 Mil/cmm (4.30-5.70) 01/09/18 18:45 Hgb 12.7 gm/dL (12-16) 01/09/18 18:45 Hct 38.1 % (41.0-60) L 01/09/18 18:45 MCV 82.1 fl (80-99) 01/09/18 18:45 MCH 27.3 pg (26.0-30.0) 01/09/18 18:45 MCHC Differential 33.2 pg (28.0-36.0) 01/09/18 18:45 RDW 13.5 % (11.5-20.0) 01/09/18 18:45 Plt Count 330 Th/cmm (150-400) 01/09/18 18:45 MPV 7.2 fl 01/09/18 18:45 Neutrophils % 69.7 % (40.0-80.0) 01/09/18 18:45 Lymphocytes % 20.7 % (20.0-50.0) 01/09/18 18:45 Monocytes % 7.6 % (2.0-10.0) 01/09/18 18:45 Eosinophils % 1.4 % (0.0-5.0) 01/09/18 18:45 Basophils % 0.6 % (0.0-2.0) 01/09/18 18:45 Sodium 135 mEq/L (136-145) L 01/09/18 18:45 Potassium 4.0 mEq/L (3.5-5.1) 01/09/18 18:45 Chloride 104 mEq/L (98-107) 01/09/18 18:45 Carbon Dioxide 24.3 mEq/L (21.0-31.0) 01/09/18 18:45 Anion Gap 10.7 (7.0-16.0) 01/09/18 18:45 BUN 12 mg/dL (7-25) 01/09/18 18:45 Creatinine 0.7 mg/dL (0.7-1.3) 01/09/18 18:45 Est GFR ( Amer) > 60.0 ml/min (>90) 01/09/18 18:45 Est GFR (Non-Af Amer) > 60.0 ml/min 01/09/18 18:45 BUN/Creatinine Ratio 17.1 01/09/18 18:45 Glucose 112 mg/dL (70-105) H 01/09/18 18:45 Hemoglobin A1c % 5.5 % (4.0-6.0) 01/09/18 18:45 Calcium 9.0 mg/dL (8.6-10.3) 01/09/18 18:45 Total Bilirubin 0.3 mg/dL (0.3-1.0) 01/09/18 18:45 AST 23 U/L (13-39) 01/09/18 18:45 ALT 17 U/L (7-52) 01/09/18 18:45 Alkaline Phosphatase 56 U/L (34-104) 01/09/18 18:45 Total Protein 7.7 gm/dL (6.0-8.3) 01/09/18 18:45 Albumin 3.7 gm/dL (4.2-5.5) L 01/09/18 18:45 Globulin 4.0 gm/dL 01/09/18 18:45 Albumin/Globulin Ratio 0.9 (1.0-1.8) L 01/09/18 18:45 Triglycerides 131 mg/dL (<150) 01/09/18 18:45 Cholesterol 162 mg/dL (<200) 01/09/18 18:45 LDL Cholesterol Direct 113 mg/dL (75-193) 01/09/18 18:45 HDL Cholesterol 23 mg/dL (23-92) 01/09/18 18:45 TSH 2.86 uIU/ml (0.34-5.60) 01/09/18 18:45 Valproic Acid < 10.0 ug/mL (50.0-100.0) L 01/10/18 08:20 Carbamazepine 3.3 ug/ml (4.0-12.0) L 01/10/18 08:20 RPR NONREACTIVE (NONREACTIVE) 01/09/18 18:45 - Physical Exam Vitals and I&O: Vital Signs Temp 98.7 F 01/11/18 20:54 Pulse 94 01/11/18 20:54 Resp 20 01/11/18 20:54 BP 125/81 01/11/18 20:54 Pulse Ox 100 01/11/18 20:54 Intake & Output 01/11/18 01/11/18 01/12/18 06:59 18:59 06:59 Intake Total 1350 500 Balance 1350 500 Intake: Oral 1350 500 Other: # Voids 3 3 # Bowel Movements 0 0 Active Medications: Current Medications Acetaminophen (Tylenol) 650 mg PO Q6HR PRN PRN Reason: Pain or Fever >101 Stop: 03/10/18 20:36 Last Admin: 01/10/18 15:01 Dose: 650 mg Al Hydrox/Mg Hydrox/Simethicone (Maalox) 30 ml PO Q4HR PRN PRN Reason: GI DISTRESS Stop: 03/10/18 20:49 Baclofen (Lioresal) 10 mg PO BID [facility] Stop: 03/11/18 08:59 Last Admin: 01/11/18 16:31 Dose: 10 mg Carbamazepine (Tegretol) 200 mg PO TID [facility]; Protocol Stop: 03/10/18 20:59 Last Admin: 01/11/18 13:27 Dose: 200 mg Divalproex Sodium (Depakote Er) 1,000 mg PO BID [facility]; Protocol Stop: 03/11/18 08:59 Last Admin: 01/11/18 16:31 Dose: 1,000 mg Docusate Sodium (Colace) 100 mg PO DAILY [facility] Stop: 03/11/18 08:59 Last Admin: 01/11/18 08:44 Dose: 100 mg Donepezil HCl (Aricept) 10 mg PO DAILY [facility] Stop: 03/11/18 08:59 Last Admin: 01/11/18 08:51 Dose: 10 mg Econazole Nitrate (Spectazole 1% Cream) 1 appl TP BID [facility] Stop: 03/11/18 08:59 Last Admin: 01/11/18 16:32 Dose: 1 appl Gemfibrozil (Lopid) 600 mg PO HS [facility] Stop: 03/11/18 20:59 Last Admin: 01/10/18 20:43 Dose: 600 mg Lorazepam (Ativan) 0.5 mg PO Q4HR PRN; Protocol PRN Reason: Anxiety Stop: 02/08/18 20:49 Magnesium Hydroxide (Milk Of Magnesia) 30 ml PO HS PRN PRN Reason: Constipation Stop: 03/10/18 20:36 Mirtazapine (Remeron) 7.5 mg PO HS [facility]; Protocol Stop: 03/11/18 20:59 Quetiapine Fumarate (Seroquel) 150 mg PO DAILY [facility]; Protocol Stop: 03/11/18 08:59 Last Admin: 01/11/18 08:44 Dose: 150 mg Quetiapine Fumarate (Seroquel) 200 mg PO HS [facility]; Protocol Stop: 03/10/18 20:59 Last Admin: 01/10/18 20:43 Dose: 200 mg Tamsulosin HCl (Flomax) 0.4 mg PO HS [facility] Stop: 03/10/18 20:59 Last Admin: 01/10/18 20:43 Dose: 0.4 mg Zolpidem Tartrate (Ambien) 5 mg PO HS PRN PRN Reason: Insomnia Stop: 03/10/18 20:49 General: demented HEENT: NC/AT, PERRLA, EOMI, anicteric sclerae, throat clear Neck: Supple, No JVD, No thyromegaly, +2 carotid pulse wo bruit, No LAD Lungs: CTAB Cardiovascular: Normal S1, Normal S2, without murmur Abdomen: soft, non-tender, non-distended Neurological: no change Internal Medicine Assmt/Plan - Assessment Assessment: 1.SEIZURE DISORDERED. 2.HYPERLIPIDEMIA. 3.BPH. 4.DEMENTIA. 5.PSYCHOSIS. - Plan Plan: CONTINUE ON CURRENT MEDICATION AND DIET. Nutritional Asmnt/Malnutr-PDOC - Dietary Evaluation Malnutrition Findings (Please click <Entered> for more info): Nutritional Asmnt/Malnutrition Start: 01/10/18 15: 40 Text: Status: Complete Freq: Protocol: Document 01/10/18 15:40 LCHENG (Rec: 01/10/18 15:57 [email or web address]) Nutritional Asmnt/Malnutrition Patient General Information Nutritional Screening High Risk Diagnosis psychosis Pertinent Medical Hx/Surgical Hx HTN, seizures, BPH, cognitive communication deficit, s/p gastrointesting hemorrhage, quadriplegia, seizure, schizophrenia, Bipolar, depression, anxiety Subjective Information Clif score 12 noted. Per MD note, pt had 10lb wt loss in past one month. GI Symptoms Skin Integrity/Comment: buttocks with open lesion per nurse note Estimated Nutritional Goals BEE in Kcals: Using Current wt Calories/Kcals/Kg 25-30 Kcals Calculated 5083-3092 Protein: Using Current wt Protein g/k Protein Calculated 82 Fluid: ml 2049-2460ml (1ml/kcal) Nutritional Problem No current Nutrition Prob Problem N/A Intervention/Recommendation Comments 1. Continue with current diet as ordered. 2. Monitor PO intake, wt, labs and skin integrity 3. F/U as moderate risk in 3-5 days, -01/15, PO check Expected Outcomes/Goals Expected Outcomes/Goals 1. PO intake to meet at least 75% of nutritional needs. 2. Wt stability, skin integrity to improve, labs to approach WNL.
--- NOTE | 2018-01-11 21:54 | Progress Notes ---
DATE: 01/11/2018 SUBJECTIVE: The patient coming into the hospital, agitated, throwing food, significant weight loss, self-inflicted wounds from biting his fingers, seems to be confused, not answering any questions on exam, requiring higher level of nursing care. Very poorly oriented to name only on exam, depressed, withdrawn. The patient coming from [facility] due to increased agitation. He also has a seizure disorder, quadriplegia. ASSESSMENT: The patient is confused, disoriented, ongoing safety concerns, withdrawn, depressed. He is currently on Seroquel and Remeron. PLAN: We will continue to monitor and titrate dosing. It seems he also has history of dementia. We will monitor and follow up. [facility]# [id number]
--- NOTE | 2018-01-12 08:30 | Progress Notes ---
DATE: 01/12/2018 SUBJECTIVE: The patient withdrawn, mostly depressed, refusing to speak with me at this time, confused, isolative, withdrawn still, refusing to go to groups, but eating fairly well. Medications were noted including dosages and frequencies. ASSESSMENT: The patient remains symptomatic, disoriented, irritable, not wanting to speak with me at this time. Ongoing safety concerns coming in from [facility] due to increased agitation, multiple medical problems as well. He is not biting his fingers at this time. He seems calm. PLAN: We will continue to monitor, titrate and adjust medications. [facility]# [id number]
[2018-01-12] MEDS: Multivitamin w/ Minerals Tab PO SCH (08:58)
[2018-01-12] MEDS: Econazole Nitrate 1% Cream 15 gm Tube TP SCH ×2 (08:58→16:48)
--- NOTE | 2018-01-12 20:32 | Internal Medicine Prog Note ---
Internal Medicine Subjective - Subjective Service Date: 01/12/18 Patient seen and examined:: with staff Patient is:: awake, non-verbal, in bed, confused Per staff patient has:: no adverse event Internal Medicine Objective - Results Result Diagrams: 01/09/18 18:45 01/09/18 18:45 Recent Labs: Laboratory Last Values WBC 7.7 Th/cmm (4.8-10.8) 01/09/18 18:45 RBC 4.64 Mil/cmm (4.30-5.70) 01/09/18 18:45 Hgb 12.7 gm/dL (12-16) 01/09/18 18:45 Hct 38.1 % (41.0-60) L 01/09/18 18:45 MCV 82.1 fl (80-99) 01/09/18 18:45 MCH 27.3 pg (26.0-30.0) 01/09/18 18:45 MCHC Differential 33.2 pg (28.0-36.0) 01/09/18 18:45 RDW 13.5 % (11.5-20.0) 01/09/18 18:45 Plt Count 330 Th/cmm (150-400) 01/09/18 18:45 MPV 7.2 fl 01/09/18 18:45 Neutrophils % 69.7 % (40.0-80.0) 01/09/18 18:45 Lymphocytes % 20.7 % (20.0-50.0) 01/09/18 18:45 Monocytes % 7.6 % (2.0-10.0) 01/09/18 18:45 Eosinophils % 1.4 % (0.0-5.0) 01/09/18 18:45 Basophils % 0.6 % (0.0-2.0) 01/09/18 18:45 Sodium 135 mEq/L (136-145) L 01/09/18 18:45 Potassium 4.0 mEq/L (3.5-5.1) 01/09/18 18:45 Chloride 104 mEq/L (98-107) 01/09/18 18:45 Carbon Dioxide 24.3 mEq/L (21.0-31.0) 01/09/18 18:45 Anion Gap 10.7 (7.0-16.0) 01/09/18 18:45 BUN 12 mg/dL (7-25) 01/09/18 18:45 Creatinine 0.7 mg/dL (0.7-1.3) 01/09/18 18:45 Est GFR ( Amer) > 60.0 ml/min (>90) 01/09/18 18:45 Est GFR (Non-Af Amer) > 60.0 ml/min 01/09/18 18:45 BUN/Creatinine Ratio 17.1 01/09/18 18:45 Glucose 112 mg/dL (70-105) H 01/09/18 18:45 Hemoglobin A1c % 5.5 % (4.0-6.0) 01/09/18 18:45 Calcium 9.0 mg/dL (8.6-10.3) 01/09/18 18:45 Total Bilirubin 0.3 mg/dL (0.3-1.0) 01/09/18 18:45 AST 23 U/L (13-39) 01/09/18 18:45 ALT 17 U/L (7-52) 01/09/18 18:45 Alkaline Phosphatase 56 U/L (34-104) 01/09/18 18:45 Total Protein 7.7 gm/dL (6.0-8.3) 01/09/18 18:45 Albumin 3.7 gm/dL (4.2-5.5) L 01/09/18 18:45 Globulin 4.0 gm/dL 01/09/18 18:45 Albumin/Globulin Ratio 0.9 (1.0-1.8) L 01/09/18 18:45 Triglycerides 131 mg/dL (<150) 01/09/18 18:45 Cholesterol 162 mg/dL (<200) 01/09/18 18:45 LDL Cholesterol Direct 113 mg/dL (75-193) 01/09/18 18:45 HDL Cholesterol 23 mg/dL (23-92) 01/09/18 18:45 TSH 2.86 uIU/ml (0.34-5.60) 01/09/18 18:45 Valproic Acid < 10.0 ug/mL (50.0-100.0) L 01/10/18 08:20 Carbamazepine 3.3 ug/ml (4.0-12.0) L 01/10/18 08:20 RPR NONREACTIVE (NONREACTIVE) 01/09/18 18:45 - Physical Exam Vitals and I&O: Vital Signs Temp 99.3 F 01/12/18 19:59 Pulse 101 01/12/18 19:59 Resp 20 01/12/18 19:59 BP 121/77 01/12/18 19:59 Pulse Ox 95 01/12/18 19:59 Intake & Output 01/12/18 01/12/18 01/13/18 06:59 18:59 06:59 Intake Total 500 120 Balance 500 120 Intake: Oral 500 120 Other: # Voids 3 3 # Bowel Movements 0 0 Active Medications: Current Medications Acetaminophen (Tylenol) 650 mg PO Q6HR PRN PRN Reason: Pain or Fever >101 Stop: 03/10/18 20:36 Last Admin: 01/10/18 15:01 Dose: 650 mg Al Hydrox/Mg Hydrox/Simethicone (Maalox) 30 ml PO Q4HR PRN PRN Reason: GI DISTRESS Stop: 03/10/18 20:49 Baclofen (Lioresal) 10 mg PO BID [facility] Stop: 03/11/18 08:59 Last Admin: 01/12/18 16:16 Dose: 10 mg Carbamazepine (Tegretol) 200 mg PO TID [facility]; Protocol Stop: 03/10/18 20:59 Last Admin: 01/12/18 13:26 Dose: 200 mg Divalproex Sodium (Depakote Er) 1,000 mg PO BID [facility]; Protocol Stop: 03/11/18 08:59 Last Admin: 01/12/18 16:15 Dose: 1,000 mg Docusate Sodium (Colace) 100 mg PO DAILY [facility] Stop: 03/11/18 08:59 Last Admin: 01/12/18 08:58 Dose: 100 mg Donepezil HCl (Aricept) 10 mg PO DAILY [facility] Stop: 03/11/18 08:59 Last Admin: 01/12/18 08:58 Dose: 10 mg Econazole Nitrate (Spectazole 1% Cream) 1 appl TP BID [facility] Stop: 03/11/18 08:59 Last Admin: 01/12/18 16:48 Dose: 1 appl Gemfibrozil (Lopid) 600 mg PO HS [facility] Stop: 03/11/18 20:59 Last Admin: 01/11/18 21:28 Dose: 600 mg Lorazepam (Ativan) 0.5 mg PO Q4HR PRN; Protocol PRN Reason: Anxiety Stop: 02/08/18 20:49 Magnesium Hydroxide (Milk Of Magnesia) 30 ml PO HS PRN PRN Reason: Constipation Stop: 03/10/18 20:36 Mirtazapine (Remeron) 7.5 mg PO HS [facility]; Protocol Stop: 03/11/18 20:59 Last Admin: 01/11/18 21:27 Dose: 7.5 mg Quetiapine Fumarate (Seroquel) 150 mg PO DAILY [facility]; Protocol Stop: 03/11/18 08:59 Last Admin: 01/12/18 08:57 Dose: 150 mg Quetiapine Fumarate (Seroquel) 200 mg PO HS [facility]; Protocol Stop: 03/10/18 20:59 Last Admin: 01/11/18 21:27 Dose: 200 mg Tamsulosin HCl (Flomax) 0.4 mg PO HS [facility] Stop: 03/10/18 20:59 Last Admin: 01/11/18 21:27 Dose: 0.4 mg Zolpidem Tartrate (Ambien) 5 mg PO HS PRN PRN Reason: Insomnia Stop: 03/10/18 20:49 General: demented HEENT: NC/AT, PERRLA, EOMI, anicteric sclerae, throat clear Neck: Supple, No JVD, No thyromegaly, +2 carotid pulse wo bruit, No LAD Lungs: CTAB Cardiovascular: Normal S1, Normal S2, without murmur Abdomen: soft, non-tender, non-distended Neurological: no change Internal Medicine Assmt/Plan - Assessment Assessment: 1.SEIZURE DISORDERED. 2.HYPERLIPIDEMIA. 3.BPH. 4.DEMENTIA. 5.PSYCHOSIS. - Plan Plan: CONTINUE ON CURRENT MEDICATION AND DIET. Nutritional Asmnt/Malnutr-PDOC - Dietary Evaluation Malnutrition Findings (Please click <Entered> for more info): Nutritional Asmnt/Malnutrition Start: 01/10/18 15: 40 Text: Status: Complete Freq: Protocol: Document 01/10/18 15:40 LCHENG (Rec: 01/10/18 15:57 YOLANDAG [email or web address]) Nutritional Asmnt/Malnutrition Patient General Information Nutritional Screening High Risk Diagnosis psychosis Pertinent Medical Hx/Surgical Hx HTN, seizures, BPH, cognitive communication deficit, s/p gastrointesting hemorrhage, quadriplegia, seizure, schizophrenia, Bipolar, depression, anxiety Subjective Information Clif score 12 noted. Per MD note, pt had 10lb wt loss in past one month. GI Symptoms Skin Integrity/Comment: buttocks with open lesion per nurse note Estimated Nutritional Goals BEE in Kcals: Using Current wt Calories/Kcals/Kg 25-30 Kcals Calculated 1556-8791 Protein: Using Current wt Protein g/k Protein Calculated 82 Fluid: ml 2049-246ml (1ml/kcal) Nutritional Problem No current Nutrition Prob Problem N/A Intervention/Recommendation Comments 1. Continue with current diet as ordered. 2. Monitor PO intake, wt, labs and skin integrity 3. F/U as moderate risk in 3-5 days, -01/15, PO check Expected Outcomes/Goals Expected Outcomes/Goals 1. PO intake to meet at least 75% of nutritional needs. 2. Wt stability, skin integrity to improve, labs to approach WNL.
[2018-01-13] MEDS: Multivitamin w/ Minerals Tab PO SCH (08:20)
[2018-01-13] MEDS: Econazole Nitrate 1% Cream 15 gm Tube TP SCH ×2 (08:21→16:19)
--- NOTE | 2018-01-13 20:42 | Internal Medicine Prog Note ---
Internal Medicine Subjective - Subjective Service Date: 01/13/18 Patient seen and examined:: without staff Patient is:: awake, non-verbal, in bed, confused Per staff patient has:: no adverse event Internal Medicine Objective - Results Result Diagrams: 01/09/18 18:45 01/09/18 18:45 Recent Labs: Laboratory Last Values WBC 7.7 Th/cmm (4.8-10.8) 01/09/18 18:45 RBC 4.64 Mil/cmm (4.30-5.70) 01/09/18 18:45 Hgb 12.7 gm/dL (12-16) 01/09/18 18:45 Hct 38.1 % (41.0-60) L 01/09/18 18:45 MCV 82.1 fl (80-99) 01/09/18 18:45 MCH 27.3 pg (26.0-30.0) 01/09/18 18:45 MCHC Differential 33.2 pg (28.0-36.0) 01/09/18 18:45 RDW 13.5 % (11.5-20.0) 01/09/18 18:45 Plt Count 330 Th/cmm (150-400) 01/09/18 18:45 MPV 7.2 fl 01/09/18 18:45 Neutrophils % 69.7 % (40.0-80.0) 01/09/18 18:45 Lymphocytes % 20.7 % (20.0-50.0) 01/09/18 18:45 Monocytes % 7.6 % (2.0-10.0) 01/09/18 18:45 Eosinophils % 1.4 % (0.0-5.0) 01/09/18 18:45 Basophils % 0.6 % (0.0-2.0) 01/09/18 18:45 Sodium 135 mEq/L (136-145) L 01/09/18 18:45 Potassium 4.0 mEq/L (3.5-5.1) 01/09/18 18:45 Chloride 104 mEq/L (98-107) 01/09/18 18:45 Carbon Dioxide 24.3 mEq/L (21.0-31.0) 01/09/18 18:45 Anion Gap 10.7 (7.0-16.0) 01/09/18 18:45 BUN 12 mg/dL (7-25) 01/09/18 18:45 Creatinine 0.7 mg/dL (0.7-1.3) 01/09/18 18:45 Est GFR ( Amer) > 60.0 ml/min (>90) 01/09/18 18:45 Est GFR (Non-Af Amer) > 60.0 ml/min 01/09/18 18:45 BUN/Creatinine Ratio 17.1 01/09/18 18:45 Glucose 112 mg/dL (70-105) H 01/09/18 18:45 Hemoglobin A1c % 5.5 % (4.0-6.0) 01/09/18 18:45 Calcium 9.0 mg/dL (8.6-10.3) 01/09/18 18:45 Total Bilirubin 0.3 mg/dL (0.3-1.0) 01/09/18 18:45 AST 23 U/L (13-39) 01/09/18 18:45 ALT 17 U/L (7-52) 01/09/18 18:45 Alkaline Phosphatase 56 U/L (34-104) 01/09/18 18:45 Total Protein 7.7 gm/dL (6.0-8.3) 01/09/18 18:45 Albumin 3.7 gm/dL (4.2-5.5) L 01/09/18 18:45 Globulin 4.0 gm/dL 01/09/18 18:45 Albumin/Globulin Ratio 0.9 (1.0-1.8) L 01/09/18 18:45 Triglycerides 131 mg/dL (<150) 01/09/18 18:45 Cholesterol 162 mg/dL (<200) 01/09/18 18:45 LDL Cholesterol Direct 113 mg/dL (75-193) 01/09/18 18:45 HDL Cholesterol 23 mg/dL (23-92) 01/09/18 18:45 TSH 2.86 uIU/ml (0.34-5.60) 01/09/18 18:45 Valproic Acid < 10.0 ug/mL (50.0-100.0) L 01/10/18 08:20 Carbamazepine 3.3 ug/ml (4.0-12.0) L 01/10/18 08:20 RPR NONREACTIVE (NONREACTIVE) 01/09/18 18:45 - Physical Exam Vitals and I&O: Vital Signs Temp 98.3 F 01/13/18 20:30 Pulse 100 01/13/18 19:54 Resp 20 01/13/18 19:54 BP 122/79 01/13/18 19:54 Pulse Ox 95 01/13/18 19:54 Intake & Output 01/13/18 01/13/18 01/14/18 06:59 18:59 06:59 Intake Total 120 3000 120 Balance 120 3000 120 Intake: Oral 120 3000 120 Other: # Voids 3 3 3 # Bowel Movements 0 2 0 Active Medications: Current Medications Acetaminophen (Tylenol) 650 mg PO Q6HR PRN PRN Reason: Pain or Fever >101 Stop: 03/10/18 20:36 Last Admin: 01/10/18 15:01 Dose: 650 mg Al Hydrox/Mg Hydrox/Simethicone (Maalox) 30 ml PO Q4HR PRN PRN Reason: GI DISTRESS Stop: 03/10/18 20:49 Baclofen (Lioresal) 10 mg PO BID [facility] Stop: 03/11/18 08:59 Last Admin: 01/13/18 16:19 Dose: 10 mg Carbamazepine (Tegretol) 200 mg PO TID [facility]; Protocol Stop: 03/10/18 20:59 Last Admin: 01/13/18 13:41 Dose: 200 mg Divalproex Sodium (Depakote Er) 1,000 mg PO BID [facility]; Protocol Stop: 03/11/18 08:59 Last Admin: 01/13/18 16:19 Dose: 1,000 mg Docusate Sodium (Colace) 100 mg PO DAILY [facility] Stop: 03/11/18 08:59 Last Admin: 01/13/18 08:20 Dose: 100 mg Donepezil HCl (Aricept) 10 mg PO DAILY [facility] Stop: 03/11/18 08:59 Last Admin: 01/13/18 08:20 Dose: 10 mg Econazole Nitrate (Spectazole 1% Cream) 1 appl TP BID [facility] Stop: 03/11/18 08:59 Last Admin: 01/13/18 16:19 Dose: 1 appl Gemfibrozil (Lopid) 600 mg PO HS [facility] Stop: 03/11/18 20:59 Last Admin: 01/12/18 20:53 Dose: 600 mg Lorazepam (Ativan) 0.5 mg PO Q4HR PRN; Protocol PRN Reason: Anxiety Stop: 02/08/18 20:49 Last Admin: 01/13/18 02:47 Dose: 0.5 mg Magnesium Hydroxide (Milk Of Magnesia) 30 ml PO HS PRN PRN Reason: Constipation Stop: 03/10/18 20:36 Mirtazapine (Remeron) 7.5 mg PO HS [facility]; Protocol Stop: 03/11/18 20:59 Last Admin: 01/12/18 21:01 Dose: 7.5 mg Quetiapine Fumarate (Seroquel) 150 mg PO DAILY [facility]; Protocol Stop: 03/11/18 08:59 Last Admin: 01/13/18 08:20 Dose: 150 mg Quetiapine Fumarate (Seroquel) 200 mg PO HS [facility]; Protocol Stop: 03/10/18 20:59 Last Admin: 01/12/18 20:53 Dose: 200 mg Tamsulosin HCl (Flomax) 0.4 mg PO HS [facility] Stop: 03/10/18 20:59 Last Admin: 01/12/18 20:53 Dose: 0.4 mg Zolpidem Tartrate (Ambien) 5 mg PO HS PRN PRN Reason: Insomnia Stop: 03/10/18 20:49 Last Admin: 01/12/18 20:54 Dose: 5 mg General: demented HEENT: NC/AT, PERRLA, EOMI, anicteric sclerae, throat clear Neck: Supple, No JVD, No thyromegaly, +2 carotid pulse wo bruit, No LAD Lungs: CTAB Cardiovascular: Normal S1, Normal S2, without murmur Abdomen: soft, non-tender, non-distended Neurological: no change Internal Medicine Assmt/Plan - Assessment Assessment: 1.SEIZURE DISORDERED. 2.HYPERLIPIDEMIA. 3.BPH. 4.DEMENTIA. 5.PSYCHOSIS. - Plan Plan: CONTINUE ON CURRENT MEDICATION AND DIET. Nutritional Asmnt/Malnutr-PDOC - Dietary Evaluation Malnutrition Findings (Please click <Entered> for more info): Nutritional Asmnt/Malnutrition Start: 01/10/18 15: 40 Text: Status: Complete Freq: Protocol: Document 01/10/18 15:40 LCHENG (Rec: 01/10/18 15:57 KOSTAS [email or web address]) Nutritional Asmnt/Malnutrition Patient General Information Nutritional Screening High Risk Diagnosis psychosis Pertinent Medical Hx/Surgical Hx HTN, seizures, BPH, cognitive communication deficit, s/p gastrointesting hemorrhage, quadriplegia, seizure, schizophrenia, Bipolar, depression, anxiety Subjective Information Clif score 12 noted. Per MD note, pt had 10lb wt loss in past one month. GI Symptoms Skin Integrity/Comment: buttocks with open lesion per nurse note Estimated Nutritional Goals BEE in Kcals: Using Current wt Calories/Kcals/Kg 25-30 Kcals Calculated 9926-2441 Protein: Using Current wt Protein g/k Protein Calculated 82 Fluid: ml 2049-246ml (1ml/kcal) Nutritional Problem No current Nutrition Prob Problem N/A Intervention/Recommendation Comments 1. Continue with current diet as ordered. 2. Monitor PO intake, wt, labs and skin integrity 3. F/U as moderate risk in 3-5 days, -01/15, PO check Expected Outcomes/Goals Expected Outcomes/Goals 1. PO intake to meet at least 75% of nutritional needs. 2. Wt stability, skin integrity to improve, labs to approach WNL.
--- NOTE | 2018-01-14 00:37 | Progress Notes ---
DATE: 01/13/2018 SUBJECTIVE: Case discussed with staff of the patient, reviewed records. The patient continues to isolate, continues to ____, unable to participate in a meaningful conversation or make a safe plan for his self-care. Continues to be unpredictable, impulsive, needing ____. No side effects from the medication, no sedation, no nausea, and no extrapyramidal symptoms. PLAN: We will continue outpatient group therapy, milieu therapy, and adjust the medication as needed. The staff to take care of his wound as well. JOB# [id number]
[2018-01-14] MEDS: Multivitamin w/ Minerals Tab PO SCH (08:23)
--- NOTE | 2018-01-14 20:32 | Internal Medicine Prog Note ---
Internal Medicine Subjective - Subjective Service Date: 01/14/18 Patient seen and examined:: without staff Patient is:: awake, non-verbal, in bed, confused Per staff patient has:: no adverse event Internal Medicine Objective - Results Result Diagrams: 01/09/18 18:45 01/09/18 18:45 Recent Labs: Laboratory Last Values WBC 7.7 Th/cmm (4.8-10.8) 01/09/18 18:45 RBC 4.64 Mil/cmm (4.30-5.70) 01/09/18 18:45 Hgb 12.7 gm/dL (12-16) 01/09/18 18:45 Hct 38.1 % (41.0-60) L 01/09/18 18:45 MCV 82.1 fl (80-99) 01/09/18 18:45 MCH 27.3 pg (26.0-30.0) 01/09/18 18:45 MCHC Differential 33.2 pg (28.0-36.0) 01/09/18 18:45 RDW 13.5 % (11.5-20.0) 01/09/18 18:45 Plt Count 330 Th/cmm (150-400) 01/09/18 18:45 MPV 7.2 fl 01/09/18 18:45 Neutrophils % 69.7 % (40.0-80.0) 01/09/18 18:45 Lymphocytes % 20.7 % (20.0-50.0) 01/09/18 18:45 Monocytes % 7.6 % (2.0-10.0) 01/09/18 18:45 Eosinophils % 1.4 % (0.0-5.0) 01/09/18 18:45 Basophils % 0.6 % (0.0-2.0) 01/09/18 18:45 Sodium 135 mEq/L (136-145) L 01/09/18 18:45 Potassium 4.0 mEq/L (3.5-5.1) 01/09/18 18:45 Chloride 104 mEq/L (98-107) 01/09/18 18:45 Carbon Dioxide 24.3 mEq/L (21.0-31.0) 01/09/18 18:45 Anion Gap 10.7 (7.0-16.0) 01/09/18 18:45 BUN 12 mg/dL (7-25) 01/09/18 18:45 Creatinine 0.7 mg/dL (0.7-1.3) 01/09/18 18:45 Est GFR ( Amer) > 60.0 ml/min (>90) 01/09/18 18:45 Est GFR (Non-Af Amer) > 60.0 ml/min 01/09/18 18:45 BUN/Creatinine Ratio 17.1 01/09/18 18:45 Glucose 112 mg/dL (70-105) H 01/09/18 18:45 POC Glucose 111 MG/DL (70 - 105) H 01/14/18 11:31 Hemoglobin A1c % 5.5 % (4.0-6.0) 01/09/18 18:45 Calcium 9.0 mg/dL (8.6-10.3) 01/09/18 18:45 Total Bilirubin 0.3 mg/dL (0.3-1.0) 01/09/18 18:45 AST 23 U/L (13-39) 01/09/18 18:45 ALT 17 U/L (7-52) 01/09/18 18:45 Alkaline Phosphatase 56 U/L (34-104) 01/09/18 18:45 Total Protein 7.7 gm/dL (6.0-8.3) 01/09/18 18:45 Albumin 3.7 gm/dL (4.2-5.5) L 01/09/18 18:45 Globulin 4.0 gm/dL 01/09/18 18:45 Albumin/Globulin Ratio 0.9 (1.0-1.8) L 01/09/18 18:45 Triglycerides 131 mg/dL (<150) 01/09/18 18:45 Cholesterol 162 mg/dL (<200) 01/09/18 18:45 LDL Cholesterol Direct 113 mg/dL (75-193) 01/09/18 18:45 HDL Cholesterol 23 mg/dL (23-92) 01/09/18 18:45 TSH 2.86 uIU/ml (0.34-5.60) 01/09/18 18:45 Valproic Acid < 10.0 ug/mL (50.0-100.0) L 01/10/18 08:20 Carbamazepine 3.3 ug/ml (4.0-12.0) L 01/10/18 08:20 RPR NONREACTIVE (NONREACTIVE) 01/09/18 18:45 - Physical Exam Vitals and I&O: Vital Signs Temp 98.9 F 01/14/18 14:41 Pulse 97 01/14/18 14:41 Resp 19 01/14/18 14:41 BP 133/82 01/14/18 14:41 Pulse Ox 98 01/14/18 14:41 Intake & Output 01/14/18 01/14/18 01/15/18 06:59 18:59 06:59 Intake Total 120 Balance 120 Intake: Oral 120 Other: # Voids 3 # Bowel Movements 1 Active Medications: Current Medications Acetaminophen (Tylenol) 650 mg PO Q6HR PRN PRN Reason: Pain or Fever >101 Stop: 03/10/18 20:36 Last Admin: 01/10/18 15:01 Dose: 650 mg Al Hydrox/Mg Hydrox/Simethicone (Maalox) 30 ml PO Q4HR PRN PRN Reason: GI DISTRESS Stop: 03/10/18 20:49 Baclofen (Lioresal) 10 mg PO BID [facility] Stop: 03/11/18 08:59 Last Admin: 01/14/18 16:48 Dose: 10 mg Carbamazepine (Tegretol) 200 mg PO TID [facility]; Protocol Stop: 03/10/18 20:59 Last Admin: 01/14/18 14:33 Dose: 200 mg Divalproex Sodium (Depakote Er) 1,000 mg PO BID [facility]; Protocol Stop: 03/11/18 08:59 Last Admin: 01/14/18 16:47 Dose: 1,000 mg Docusate Sodium (Colace) 100 mg PO DAILY [facility] Stop: 03/11/18 08:59 Last Admin: 01/14/18 08:22 Dose: 100 mg Donepezil HCl (Aricept) 10 mg PO DAILY [facility] Stop: 03/11/18 08:59 Last Admin: 01/14/18 08:21 Dose: 10 mg Econazole Nitrate (Spectazole 1% Cream) 1 appl TP BID [facility] Stop: 03/11/18 08:59 Last Admin: 01/13/18 16:19 Dose: 1 appl Gemfibrozil (Lopid) 600 mg PO HS [facility] Stop: 03/11/18 20:59 Last Admin: 01/13/18 21:29 Dose: 600 mg Lorazepam (Ativan) 0.5 mg PO Q4HR PRN; Protocol PRN Reason: Anxiety Stop: 02/08/18 20:49 Last Admin: 01/13/18 02:47 Dose: 0.5 mg Magnesium Hydroxide (Milk Of Magnesia) 30 ml PO HS PRN PRN Reason: Constipation Stop: 03/10/18 20:36 Mirtazapine (Remeron) 7.5 mg PO HS [facility]; Protocol Stop: 03/11/18 20:59 Last Admin: 01/13/18 21:29 Dose: 7.5 mg Quetiapine Fumarate (Seroquel) 150 mg PO DAILY [facility]; Protocol Stop: 03/11/18 08:59 Last Admin: 01/14/18 08:21 Dose: 150 mg Quetiapine Fumarate (Seroquel) 200 mg PO HS [facility]; Protocol Stop: 03/10/18 20:59 Last Admin: 01/13/18 21:29 Dose: 200 mg Tamsulosin HCl (Flomax) 0.4 mg PO HS [facility] Stop: 03/10/18 20:59 Last Admin: 01/13/18 21:30 Dose: 0.4 mg Zolpidem Tartrate (Ambien) 5 mg PO HS PRN PRN Reason: Insomnia Stop: 03/10/18 20:49 Last Admin: 01/12/18 20:54 Dose: 5 mg General: demented HEENT: NC/AT, PERRLA, EOMI, anicteric sclerae, throat clear Neck: Supple, No JVD, No thyromegaly, +2 carotid pulse wo bruit, No LAD Lungs: CTAB Cardiovascular: Normal S1, Normal S2, without murmur Abdomen: soft, non-tender, non-distended Neurological: no change Internal Medicine Assmt/Plan - Assessment Assessment: 1.SEIZURE DISORDERED. 2.HYPERLIPIDEMIA. 3.BPH. 4.DEMENTIA. 5.PSYCHOSIS. - Plan Plan: CONTINUE ON CURRENT MEDICATION AND DIET. Nutritional Asmnt/Malnutr-PDOC - Dietary Evaluation Malnutrition Findings (Please click <Entered> for more info): Nutritional Asmnt/Malnutrition Start: 01/10/18 15: 40 Text: Status: Complete Freq: Protocol: Document 01/10/18 15:40 LCH[facility] (Rec: 01/10/18 15:57 [facility]-[email or web address]) Nutritional Asmnt/Malnutrition Patient General Information Nutritional Screening High Risk Diagnosis psychosis Pertinent Medical Hx/Surgical Hx HTN, seizures, BPH, cognitive communication deficit, s/p gastrointesting hemorrhage, quadriplegia, seizure, schizophrenia, Bipolar, depression, anxiety Subjective Information Clif score 12 noted. Per MD note, pt had 10lb wt loss in past one month. GI Symptoms Skin Integrity/Comment: buttocks with open lesion per nurse note Estimated Nutritional Goals BEE in Kcals: Using Current wt Calories/Kcals/Kg 25-30 Kcals Calculated 1038-9826 Protein: Using Current wt Protein g/k Protein Calculated 82 Fluid: ml 2049-246ml (1ml/kcal) Nutritional Problem No current Nutrition Prob Problem N/A Intervention/Recommendation Comments 1. Continue with current diet as ordered. 2. Monitor PO intake, wt, labs and skin integrity 3. F/U as moderate risk in 3-5 days, -01/15, PO check Expected Outcomes/Goals Expected Outcomes/Goals 1. PO intake to meet at least 75% of nutritional needs. 2. Wt stability, skin integrity to improve, labs to approach WNL.
--- NOTE | 2018-01-14 21:31 | Progress Notes ---
DATE: 01/14/2018 Case was discussed with staff of the patient, reviewed records. The patient continues to stay in bed, hardly communicate, though the staff report that he was able to tell them that he needs to have more food. He ____ himself, internally preoccupied. The staff is taking care of his medical condition as well as the medical doctor same like he has some ulcers and Dr. James ordered wound care for him. His lab work showed he has low hematocrit 38.1. The rest within normal range. Chemistry panel low sodium of 135 and high blood sugar 112 and low albumin, low TSH within normal range. Depakote level is 13.7, which is very low considering his dose of 1000 mg twice a day. He is on Tegretol level is less than 2, which is also very small comparing to his dose. I am not sure the patient has been compliant with the medication. I discussed with staff the need for them to monitor his medication to make sure he is taking it and we will continue to work with the patient group therapy, milieu therapy, and adjust medications. JOB# [id number]
[2018-01-15] MEDS: Econazole Nitrate 1% Cream 15 gm Tube TP SCH ×2 (09:29→17:12)
[2018-01-15] MEDS: Multivitamin w/ Minerals Tab PO SCH (09:30)
--- NOTE | 2018-01-15 20:59 | Internal Medicine Prog Note ---
Internal Medicine Subjective - Subjective Service Date: 01/15/18 Patient seen and examined:: without staff Patient is:: awake, non-verbal, in bed, confused Per staff patient has:: no adverse event Internal Medicine Objective - Results Result Diagrams: 01/09/18 18:45 01/09/18 18:45 Recent Labs: Laboratory Last Values WBC 7.7 Th/cmm (4.8-10.8) 01/09/18 18:45 RBC 4.64 Mil/cmm (4.30-5.70) 01/09/18 18:45 Hgb 12.7 gm/dL (12-16) 01/09/18 18:45 Hct 38.1 % (41.0-60) L 01/09/18 18:45 MCV 82.1 fl (80-99) 01/09/18 18:45 MCH 27.3 pg (26.0-30.0) 01/09/18 18:45 MCHC Differential 33.2 pg (28.0-36.0) 01/09/18 18:45 RDW 13.5 % (11.5-20.0) 01/09/18 18:45 Plt Count 330 Th/cmm (150-400) 01/09/18 18:45 MPV 7.2 fl 01/09/18 18:45 Neutrophils % 69.7 % (40.0-80.0) 01/09/18 18:45 Lymphocytes % 20.7 % (20.0-50.0) 01/09/18 18:45 Monocytes % 7.6 % (2.0-10.0) 01/09/18 18:45 Eosinophils % 1.4 % (0.0-5.0) 01/09/18 18:45 Basophils % 0.6 % (0.0-2.0) 01/09/18 18:45 Sodium 135 mEq/L (136-145) L 01/09/18 18:45 Potassium 4.0 mEq/L (3.5-5.1) 01/09/18 18:45 Chloride 104 mEq/L (98-107) 01/09/18 18:45 Carbon Dioxide 24.3 mEq/L (21.0-31.0) 01/09/18 18:45 Anion Gap 10.7 (7.0-16.0) 01/09/18 18:45 BUN 12 mg/dL (7-25) 01/09/18 18:45 Creatinine 0.7 mg/dL (0.7-1.3) 01/09/18 18:45 Est GFR ( Amer) > 60.0 ml/min (>90) 01/09/18 18:45 Est GFR (Non-Af Amer) > 60.0 ml/min 01/09/18 18:45 BUN/Creatinine Ratio 17.1 01/09/18 18:45 Glucose 112 mg/dL (70-105) H 01/09/18 18:45 POC Glucose 111 MG/DL (70 - 105) H 01/14/18 11:31 Hemoglobin A1c % 5.5 % (4.0-6.0) 01/09/18 18:45 Calcium 9.0 mg/dL (8.6-10.3) 01/09/18 18:45 Total Bilirubin 0.3 mg/dL (0.3-1.0) 01/09/18 18:45 AST 23 U/L (13-39) 01/09/18 18:45 ALT 17 U/L (7-52) 01/09/18 18:45 Alkaline Phosphatase 56 U/L (34-104) 01/09/18 18:45 Total Protein 7.7 gm/dL (6.0-8.3) 01/09/18 18:45 Albumin 3.7 gm/dL (4.2-5.5) L 01/09/18 18:45 Globulin 4.0 gm/dL 01/09/18 18:45 Albumin/Globulin Ratio 0.9 (1.0-1.8) L 01/09/18 18:45 Triglycerides 131 mg/dL (<150) 01/09/18 18:45 Cholesterol 162 mg/dL (<200) 01/09/18 18:45 LDL Cholesterol Direct 113 mg/dL (75-193) 01/09/18 18:45 HDL Cholesterol 23 mg/dL (23-92) 01/09/18 18:45 TSH 2.86 uIU/ml (0.34-5.60) 01/09/18 18:45 Valproic Acid < 10.0 ug/mL (50.0-100.0) L 01/10/18 08:20 Carbamazepine 3.3 ug/ml (4.0-12.0) L 01/10/18 08:20 RPR NONREACTIVE (NONREACTIVE) 01/09/18 18:45 - Physical Exam Vitals and I&O: Vital Signs Temp 97.9 F 01/15/18 14:10 Pulse 102 01/15/18 14:10 Resp 20 01/15/18 14:10 BP 119/75 01/15/18 14:10 Pulse Ox 98 01/15/18 14:10 Intake & Output 01/15/18 01/15/18 01/16/18 06:59 18:59 06:59 Intake Total 500 Balance 500 Intake: Oral 500 Other: # Voids 4 # Bowel Movements 0 Active Medications: Current Medications Acetaminophen (Tylenol) 650 mg PO Q6HR PRN PRN Reason: Pain or Fever >101 Stop: 03/10/18 20:36 Last Admin: 01/10/18 15:01 Dose: 650 mg Al Hydrox/Mg Hydrox/Simethicone (Maalox) 30 ml PO Q4HR PRN PRN Reason: GI DISTRESS Stop: 03/10/18 20:49 Baclofen (Lioresal) 10 mg PO BID [facility] Stop: 03/11/18 08:59 Last Admin: 01/15/18 17:13 Dose: 10 mg Carbamazepine (Tegretol) 200 mg PO TID [facility]; Protocol Stop: 03/10/18 20:59 Last Admin: 01/15/18 14:12 Dose: 200 mg Divalproex Sodium (Depakote Er) 1,000 mg PO BID [facility]; Protocol Stop: 03/11/18 08:59 Last Admin: 01/15/18 17:13 Dose: 1,000 mg Docusate Sodium (Colace) 100 mg PO DAILY [facility] Stop: 03/11/18 08:59 Last Admin: 01/15/18 09:30 Dose: 100 mg Donepezil HCl (Aricept) 10 mg PO DAILY [facility] Stop: 03/11/18 08:59 Last Admin: 01/15/18 09:30 Dose: 10 mg Econazole Nitrate (Spectazole 1% Cream) 1 appl TP BID [facility] Stop: 03/11/18 08:59 Last Admin: 01/15/18 17:12 Dose: 1 appl Gemfibrozil (Lopid) 600 mg PO HS [facility] Stop: 03/11/18 20:59 Last Admin: 01/14/18 21:55 Dose: 600 mg Lorazepam (Ativan) 0.5 mg PO Q4HR PRN; Protocol PRN Reason: Anxiety Stop: 02/08/18 20:49 Last Admin: 01/13/18 02:47 Dose: 0.5 mg Magnesium Hydroxide (Milk Of Magnesia) 30 ml PO HS PRN PRN Reason: Constipation Stop: 03/10/18 20:36 Mirtazapine (Remeron) 7.5 mg PO HS [facility]; Protocol Stop: 03/11/18 20:59 Last Admin: 01/14/18 21:54 Dose: 7.5 mg Quetiapine Fumarate (Seroquel) 150 mg PO DAILY [facility]; Protocol Stop: 03/11/18 08:59 Last Admin: 01/15/18 09:31 Dose: 150 mg Quetiapine Fumarate (Seroquel) 200 mg PO HS [facility]; Protocol Stop: 03/10/18 20:59 Last Admin: 01/14/18 21:55 Dose: 200 mg Tamsulosin HCl (Flomax) 0.4 mg PO HS [facility] Stop: 03/10/18 20:59 Last Admin: 01/14/18 21:55 Dose: 0.4 mg Zolpidem Tartrate (Ambien) 5 mg PO HS PRN PRN Reason: Insomnia Stop: 03/10/18 20:49 Last Admin: 01/12/18 20:54 Dose: 5 mg General: demented HEENT: NC/AT, PERRLA, EOMI, anicteric sclerae, throat clear Neck: Supple, No JVD, No thyromegaly, +2 carotid pulse wo bruit, No LAD Lungs: CTAB Cardiovascular: Normal S1, Normal S2, without murmur Abdomen: soft, non-tender, non-distended Neurological: no change Internal Medicine Assmt/Plan - Assessment Assessment: 1.SEIZURE DISORDERED. 2.HYPERLIPIDEMIA. 3.BPH. 4.DEMENTIA. 5.PSYCHOSIS. - Plan Plan: CONTINUE ON CURRENT MEDICATION AND DIET. Nutritional Asmnt/Malnutr-PDOC - Dietary Evaluation Malnutrition Findings (Please click <Entered> for more info): Nutritional Asmnt/Malnutrition Start: 01/10/18 15: 40 Text: Status: Complete Freq: Protocol: Document 01/10/18 15:40 LCH[facility] (Rec: 01/10/18 15:57 [email or web address]) Nutritional Asmnt/Malnutrition Patient General Information Nutritional Screening High Risk Diagnosis psychosis Pertinent Medical Hx/Surgical Hx HTN, seizures, BPH, cognitive communication deficit, s/p gastrointesting hemorrhage, quadriplegia, seizure, schizophrenia, Bipolar, depression, anxiety Subjective Information Clif score 12 noted. Per MD note, pt had 10lb wt loss in past one month. Current Diet Order/ Nutrition Support regular Pertinent Medications colace, remeron, seroquel Pertinent Labs 01/09 Na 135, Glucose 112, A1c 5 .5 Nutritional Hx/Data Height 1.88 m Height (Calculated Centimeters) 188.0 Current Weight (lbs) 81.647 kg Weight (Calculated Kilograms) 81.6 Weight (Calculated Grams) 60731.6 [place] Body Weight 190 Body Mass Index (BMI) 23.1 Weight Status Approriate GI Symptoms GI Symptoms None Difficult in: None Skin Integrity/Comment: buttocks with open lesion per nurse note Estimated Nutritional Goals BEE in Kcals: Using Current wt Calories/Kcals/Kg 25-30 Kcals Calculated 9080-4908 Protein: Using Current wt Protein g/k Protein Calculated 82 Fluid: ml 2049-2460ml (1ml/kcal) Nutritional Problem No current Nutrition Prob Problem N/A Intervention/Recommendation Comments 1. Continue with current diet as ordered. 2. Monitor PO intake, wt, labs and skin integrity 3. F/U as moderate risk in 3-5 days, -01/15, PO check Expected Outcomes/Goals Expected Outcomes/Goals 1. PO intake to meet at least 75% of nutritional needs. 2. Wt stability, skin integrity to improve, labs to approach WNL.
--- NOTE | 2018-01-16 01:02 | Progress Notes ---
DATE: 01/15/2018 SUBJECTIVE: Chart reviewed and the patient interviewed. Also, discussed the patient's condition with the staff and reviewed records and labs. The patient is still anxious. The patient was staring at me without saying even a word. I tried to speak with him in both Occitan and Italian language which I speak and he does too, but he was silent and seems to be actively responding. The patient also was easily agitated and easily irritable. Otherwise, the patient is still considered to be gravely disabled and unable to care for her basic needs. ASSESSMENT: The patient still seems to be psychotic and considered to be gravely disabled. TREATMENT PLAN: Continue to monitor his behavior closely. Also continue adjusting psychotropic medications. Also, monitoring his decubitus ulcers and continue to follow up closely. JOB# [id number]
[2018-01-16] MEDS: Econazole Nitrate 1% Cream 15 gm Tube TP SCH ×2 (08:42→16:21)
[2018-01-16] MEDS: Multivitamin w/ Minerals Tab PO SCH (08:45)
--- NOTE | 2018-01-16 21:06 | Internal Medicine Prog Note ---
Internal Medicine Subjective - Subjective Service Date: 01/16/18 Patient seen and examined:: without staff Patient is:: awake, non-verbal, in bed, confused Per staff patient has:: no adverse event Internal Medicine Objective - Results Result Diagrams: 01/09/18 18:45 01/09/18 18:45 Recent Labs: Laboratory Last Values WBC 7.7 Th/cmm (4.8-10.8) 01/09/18 18:45 RBC 4.64 Mil/cmm (4.30-5.70) 01/09/18 18:45 Hgb 12.7 gm/dL (12-16) 01/09/18 18:45 Hct 38.1 % (41.0-60) L 01/09/18 18:45 MCV 82.1 fl (80-99) 01/09/18 18:45 MCH 27.3 pg (26.0-30.0) 01/09/18 18:45 MCHC Differential 33.2 pg (28.0-36.0) 01/09/18 18:45 RDW 13.5 % (11.5-20.0) 01/09/18 18:45 Plt Count 330 Th/cmm (150-400) 01/09/18 18:45 MPV 7.2 fl 01/09/18 18:45 Neutrophils % 69.7 % (40.0-80.0) 01/09/18 18:45 Lymphocytes % 20.7 % (20.0-50.0) 01/09/18 18:45 Monocytes % 7.6 % (2.0-10.0) 01/09/18 18:45 Eosinophils % 1.4 % (0.0-5.0) 01/09/18 18:45 Basophils % 0.6 % (0.0-2.0) 01/09/18 18:45 Sodium 135 mEq/L (136-145) L 01/09/18 18:45 Potassium 4.0 mEq/L (3.5-5.1) 01/09/18 18:45 Chloride 104 mEq/L (98-107) 01/09/18 18:45 Carbon Dioxide 24.3 mEq/L (21.0-31.0) 01/09/18 18:45 Anion Gap 10.7 (7.0-16.0) 01/09/18 18:45 BUN 12 mg/dL (7-25) 01/09/18 18:45 Creatinine 0.7 mg/dL (0.7-1.3) 01/09/18 18:45 Est GFR ( Amer) > 60.0 ml/min (>90) 01/09/18 18:45 Est GFR (Non-Af Amer) > 60.0 ml/min 01/09/18 18:45 BUN/Creatinine Ratio 17.1 01/09/18 18:45 Glucose 112 mg/dL (70-105) H 01/09/18 18:45 POC Glucose 111 MG/DL (70 - 105) H 01/14/18 11:31 Hemoglobin A1c % 5.5 % (4.0-6.0) 01/09/18 18:45 Calcium 9.0 mg/dL (8.6-10.3) 01/09/18 18:45 Total Bilirubin 0.3 mg/dL (0.3-1.0) 01/09/18 18:45 AST 23 U/L (13-39) 01/09/18 18:45 ALT 17 U/L (7-52) 01/09/18 18:45 Alkaline Phosphatase 56 U/L (34-104) 01/09/18 18:45 Total Protein 7.7 gm/dL (6.0-8.3) 01/09/18 18:45 Albumin 3.7 gm/dL (4.2-5.5) L 01/09/18 18:45 Globulin 4.0 gm/dL 01/09/18 18:45 Albumin/Globulin Ratio 0.9 (1.0-1.8) L 01/09/18 18:45 Triglycerides 131 mg/dL (<150) 01/09/18 18:45 Cholesterol 162 mg/dL (<200) 01/09/18 18:45 LDL Cholesterol Direct 113 mg/dL (75-193) 01/09/18 18:45 HDL Cholesterol 23 mg/dL (23-92) 01/09/18 18:45 TSH 2.86 uIU/ml (0.34-5.60) 01/09/18 18:45 Valproic Acid 63.7 ug/mL (50.0-100.0) 01/16/18 07:40 Carbamazepine 9.1 ug/ml (4.0-12.0) 01/16/18 07:40 RPR NONREACTIVE (NONREACTIVE) 01/09/18 18:45 - Physical Exam Vitals and I&O: Vital Signs Temp 99.5 F 01/16/18 20:46 Pulse 99 01/16/18 20:46 Resp 20 01/16/18 20:46 BP 107/61 01/16/18 20:46 Pulse Ox 98 01/16/18 20:46 Intake & Output 01/16/18 01/16/18 01/17/18 06:59 18:59 06:59 Intake Total 120 1350 500 Balance 120 1350 500 Intake: Oral 120 1350 500 Other: # Voids 3 3 4 # Bowel Movements 0 0 0 Active Medications: Current Medications Acetaminophen (Tylenol) 650 mg PO Q6HR PRN PRN Reason: Pain or Fever >101 Stop: 03/10/18 20:36 Last Admin: 01/10/18 15:01 Dose: 650 mg Al Hydrox/Mg Hydrox/Simethicone (Maalox) 30 ml PO Q4HR PRN PRN Reason: GI DISTRESS Stop: 03/10/18 20:49 Baclofen (Lioresal) 10 mg PO BID [facility] Stop: 03/11/18 08:59 Last Admin: 01/16/18 16:21 Dose: 10 mg Carbamazepine (Tegretol) 200 mg PO TID [facility]; Protocol Stop: 03/10/18 20:59 Last Admin: 01/16/18 21:03 Dose: 200 mg Divalproex Sodium (Depakote Er) 1,000 mg PO BID [facility]; Protocol Stop: 03/11/18 08:59 Last Admin: 01/16/18 16:21 Dose: 1,000 mg Docusate Sodium (Colace) 100 mg PO DAILY [facility] Stop: 03/11/18 08:59 Last Admin: 01/16/18 08:43 Dose: 100 mg Donepezil HCl (Aricept) 10 mg PO DAILY [facility] Stop: 03/11/18 08:59 Last Admin: 01/16/18 08:45 Dose: 10 mg Econazole Nitrate (Spectazole 1% Cream) 1 appl TP BID [facility] Stop: 03/11/18 08:59 Last Admin: 01/16/18 16:21 Dose: 1 appl Gemfibrozil (Lopid) 600 mg PO HS [facility] Stop: 03/11/18 20:59 Last Admin: 01/16/18 21:03 Dose: 600 mg Lorazepam (Ativan) 0.5 mg PO Q4HR PRN; Protocol PRN Reason: Anxiety Stop: 02/08/18 20:49 Last Admin: 01/13/18 02:47 Dose: 0.5 mg Magnesium Hydroxide (Milk Of Magnesia) 30 ml PO HS PRN PRN Reason: Constipation Stop: 03/10/18 20:36 Mirtazapine (Remeron) 7.5 mg PO HS [facility]; Protocol Stop: 03/11/18 20:59 Last Admin: 01/16/18 21:03 Dose: 7.5 mg Quetiapine Fumarate (Seroquel) 150 mg PO DAILY [facility]; Protocol Stop: 03/11/18 08:59 Last Admin: 01/16/18 08:43 Dose: 150 mg Quetiapine Fumarate (Seroquel) 200 mg PO HS [facility]; Protocol Stop: 03/10/18 20:59 Last Admin: 01/16/18 21:03 Dose: 200 mg Tamsulosin HCl (Flomax) 0.4 mg PO HS [facility] Stop: 03/10/18 20:59 Last Admin: 01/16/18 21:03 Dose: 0.4 mg Zolpidem Tartrate (Ambien) 5 mg PO HS PRN PRN Reason: Insomnia Stop: 03/10/18 20:49 Last Admin: 01/12/18 20:54 Dose: 5 mg General: demented HEENT: NC/AT, PERRLA, EOMI, anicteric sclerae, throat clear Neck: Supple, No JVD, No thyromegaly, +2 carotid pulse wo bruit, No LAD Lungs: CTAB Cardiovascular: Normal S1, Normal S2, without murmur Abdomen: soft, non-tender, non-distended Neurological: no change Internal Medicine Assmt/Plan - Assessment Assessment: 1.SEIZURE DISORDERED. 2.HYPERLIPIDEMIA. 3.BPH. 4.DEMENTIA. 5.PSYCHOSIS. - Plan Plan: CONTINUE ON CURRENT MEDICATION AND DIET. Nutritional Asmnt/Malnutr-PDOC - Dietary Evaluation Malnutrition Findings (Please click <Entered> for more info): Nutritional Asmnt/Malnutrition Start: 01/10/18 15: 40 Text: Status: Complete Freq: Protocol: Document 01/10/18 15:40 L[facility] (Rec: 01/10/18 15:57 [email or web address]) Nutritional Asmnt/Malnutrition Patient General Information Nutritional Screening High Risk Diagnosis psychosis Pertinent Medical Hx/Surgical Hx HTN, seizures, BPH, cognitive communication deficit, s/p gastrointesting hemorrhage, quadriplegia, seizure, schizophrenia, Bipolar, depression, anxiety Subjective Information Clif score 12 noted. Per MD note, pt had 10lb wt loss in past one month. Current Diet Order/ Nutrition Support regular Pertinent Medications colace, remeron, seroquel Pertinent Labs 01/09 Na 135, Glucose 112, A1c 5 .5 Nutritional Hx/Data Height 1.88 m Height (Calculated Centimeters) 188.0 Current Weight (lbs) 81.647 kg Weight (Calculated Kilograms) 81.6 Weight (Calculated Grams) 50471.6 Honeydew Body Weight 190 Body Mass Index (BMI) 23.1 Weight Status Approriate GI Symptoms GI Symptoms None Difficult in: None Skin Integrity/Comment: buttocks with open lesion per nurse note Estimated Nutritional Goals BEE in Kcals: Using Current wt Calories/Kcals/Kg 25-30 Kcals Calculated 7319-2793 Protein: Using Current wt Protein g/k Protein Calculated 82 Fluid: ml 0-2460ml (1ml/kcal) Nutritional Problem No current Nutrition Prob Problem N/A Intervention/Recommendation Comments 1. Continue with current diet as ordered. 2. Monitor PO intake, wt, labs and skin integrity 3. F/U as moderate risk in 3-5 days, -01/15, PO check Expected Outcomes/Goals Expected Outcomes/Goals 1. PO intake to meet at least 75% of nutritional needs. 2. Wt stability, skin integrity to improve, labs to approach WNL.
--- NOTE | 2018-01-17 07:22 | Progress Notes ---
DATE: 01/16/2018 DATE: 01/16/2018 SUBJECTIVE: Chart reviewed and the patient interviewed. Also discussed the patient's condition with the staff and reviewed records and labs. The patient continued to be selectively mute and trying to talk. The patient was having flat affect and he did not respond to me and kept staring at me. The patient also is still withdrawn and seems to be depressed and interacting minimally with others. Also, he is cooperative with his treatment, but he still seems to be preoccupied and is still suspicious. ASSESSMENT: The patient is still depressed and psychotic. TREATMENT PLAN: Continue to monitor his behavior and his condition closely and continue to follow up. JOB# [id number]
[2018-01-17] MEDS: Multivitamin w/ Minerals Tab PO SCH (09:26)
[2018-01-17] MEDS: Econazole Nitrate 1% Cream 15 gm Tube TP SCH ×2 (09:28→16:22)
--- NOTE | 2018-01-17 20:04 | Internal Medicine Prog Note ---
Internal Medicine Subjective - Subjective Service Date: 01/17/18 Patient seen and examined:: with staff Patient is:: awake, non-verbal, in bed, confused Per staff patient has:: no adverse event Internal Medicine Objective - Results Result Diagrams: 01/09/18 18:45 01/09/18 18:45 Recent Labs: Laboratory Last Values WBC 7.7 Th/cmm (4.8-10.8) 01/09/18 18:45 RBC 4.64 Mil/cmm (4.30-5.70) 01/09/18 18:45 Hgb 12.7 gm/dL (12-16) 01/09/18 18:45 Hct 38.1 % (41.0-60) L 01/09/18 18:45 MCV 82.1 fl (80-99) 01/09/18 18:45 MCH 27.3 pg (26.0-30.0) 01/09/18 18:45 MCHC Differential 33.2 pg (28.0-36.0) 01/09/18 18:45 RDW 13.5 % (11.5-20.0) 01/09/18 18:45 Plt Count 330 Th/cmm (150-400) 01/09/18 18:45 MPV 7.2 fl 01/09/18 18:45 Neutrophils % 69.7 % (40.0-80.0) 01/09/18 18:45 Lymphocytes % 20.7 % (20.0-50.0) 01/09/18 18:45 Monocytes % 7.6 % (2.0-10.0) 01/09/18 18:45 Eosinophils % 1.4 % (0.0-5.0) 01/09/18 18:45 Basophils % 0.6 % (0.0-2.0) 01/09/18 18:45 Sodium 135 mEq/L (136-145) L 01/09/18 18:45 Potassium 4.0 mEq/L (3.5-5.1) 01/09/18 18:45 Chloride 104 mEq/L (98-107) 01/09/18 18:45 Carbon Dioxide 24.3 mEq/L (21.0-31.0) 01/09/18 18:45 Anion Gap 10.7 (7.0-16.0) 01/09/18 18:45 BUN 12 mg/dL (7-25) 01/09/18 18:45 Creatinine 0.7 mg/dL (0.7-1.3) 01/09/18 18:45 Est GFR ( Amer) > 60.0 ml/min (>90) 01/09/18 18:45 Est GFR (Non-Af Amer) > 60.0 ml/min 01/09/18 18:45 BUN/Creatinine Ratio 17.1 01/09/18 18:45 Glucose 112 mg/dL (70-105) H 01/09/18 18:45 POC Glucose 89 MG/DL (70 - 105) 01/17/18 05:24 Hemoglobin A1c % 5.5 % (4.0-6.0) 01/09/18 18:45 Calcium 9.0 mg/dL (8.6-10.3) 01/09/18 18:45 Total Bilirubin 0.3 mg/dL (0.3-1.0) 01/09/18 18:45 AST 23 U/L (13-39) 01/09/18 18:45 ALT 17 U/L (7-52) 01/09/18 18:45 Alkaline Phosphatase 56 U/L (34-104) 01/09/18 18:45 Total Protein 7.7 gm/dL (6.0-8.3) 01/09/18 18:45 Albumin 3.7 gm/dL (4.2-5.5) L 01/09/18 18:45 Globulin 4.0 gm/dL 01/09/18 18:45 Albumin/Globulin Ratio 0.9 (1.0-1.8) L 01/09/18 18:45 Triglycerides 131 mg/dL (<150) 01/09/18 18:45 Cholesterol 162 mg/dL (<200) 01/09/18 18:45 LDL Cholesterol Direct 113 mg/dL (75-193) 01/09/18 18:45 HDL Cholesterol 23 mg/dL (23-92) 01/09/18 18:45 TSH 2.86 uIU/ml (0.34-5.60) 01/09/18 18:45 Valproic Acid 63.7 ug/mL (50.0-100.0) 01/16/18 07:40 Carbamazepine 9.1 ug/ml (4.0-12.0) 01/16/18 07:40 RPR NONREACTIVE (NONREACTIVE) 01/09/18 18:45 - Physical Exam Vitals and I&O: Vital Signs Temp 97.3 F 01/17/18 14:00 Pulse 91 01/17/18 14:00 Resp 19 01/17/18 14:00 BP 101/63 01/17/18 14:00 Pulse Ox 97 01/17/18 14:00 Intake & Output 01/17/18 01/17/18 01/18/18 06:59 18:59 06:59 Intake Total 500 Balance 500 Intake: Oral 500 Other: # Voids 4 # Bowel Movements 0 Active Medications: Current Medications Acetaminophen (Tylenol) 650 mg PO Q6HR PRN PRN Reason: Pain or Fever >101 Stop: 03/10/18 20:36 Last Admin: 01/17/18 02:35 Dose: 650 mg Al Hydrox/Mg Hydrox/Simethicone (Maalox) 30 ml PO Q4HR PRN PRN Reason: GI DISTRESS Stop: 03/10/18 20:49 Baclofen (Lioresal) 10 mg PO BID [facility] Stop: 03/11/18 08:59 Last Admin: 01/17/18 16:21 Dose: 10 mg Carbamazepine (Tegretol) 200 mg PO TID [facility]; Protocol Stop: 03/10/18 20:59 Last Admin: 01/17/18 14:49 Dose: 200 mg Divalproex Sodium (Depakote Er) 1,000 mg PO BID [facility]; Protocol Stop: 03/11/18 08:59 Last Admin: 01/17/18 16:21 Dose: 1,000 mg Docusate Sodium (Colace) 100 mg PO DAILY [facility] Stop: 03/11/18 08:59 Last Admin: 01/17/18 09:26 Dose: 100 mg Donepezil HCl (Aricept) 10 mg PO DAILY [facility] Stop: 03/11/18 08:59 Last Admin: 01/17/18 09:25 Dose: 10 mg Econazole Nitrate (Spectazole 1% Cream) 1 appl TP BID [facility] Stop: 03/11/18 08:59 Last Admin: 01/17/18 16:22 Dose: 1 appl Gemfibrozil (Lopid) 600 mg PO HS [facility] Stop: 03/11/18 20:59 Last Admin: 01/16/18 21:03 Dose: 600 mg Lorazepam (Ativan) 0.5 mg PO Q4HR PRN; Protocol PRN Reason: Anxiety Stop: 02/08/18 20:49 Last Admin: 01/13/18 02:47 Dose: 0.5 mg Magnesium Hydroxide (Milk Of Magnesia) 30 ml PO HS PRN PRN Reason: Constipation Stop: 03/10/18 20:36 Mirtazapine (Remeron) 15 mg PO HS [facility]; Protocol Stop: 03/18/18 20:59 Quetiapine Fumarate (Seroquel) 150 mg PO DAILY [facility]; Protocol Stop: 03/11/18 08:59 Last Admin: 01/17/18 09:25 Dose: 150 mg Quetiapine Fumarate (Seroquel) 200 mg PO HS [facility]; Protocol Stop: 03/10/18 20:59 Last Admin: 01/16/18 21:03 Dose: 200 mg Tamsulosin HCl (Flomax) 0.4 mg PO HS [facility] Stop: 03/10/18 20:59 Last Admin: 01/16/18 21:03 Dose: 0.4 mg General: demented HEENT: NC/AT, PERRLA, EOMI, anicteric sclerae, throat clear Neck: Supple, No JVD, No thyromegaly, +2 carotid pulse wo bruit, No LAD Lungs: CTAB Cardiovascular: Normal S1, Normal S2, without murmur Abdomen: soft, non-tender, non-distended Neurological: no change Internal Medicine Assmt/Plan - Assessment Assessment: 1.SEIZURE DISORDERED. 2.HYPERLIPIDEMIA. 3.BPH. 4.DEMENTIA. 5.PSYCHOSIS. - Plan Plan: CONTINUE ON CURRENT MEDICATION AND DIET. Nutritional Asmnt/Malnutr-PDOC - Dietary Evaluation Malnutrition Findings (Please click <Entered> for more info): Nutritional Asmnt/Malnutrition Start: 01/10/18 15: 40 Text: Status: Complete Freq: Protocol: Document 01/10/18 15:40 LCYOLANDAG (Rec: 01/10/18 15:57 [email or web address]) Nutritional Asmnt/Malnutrition Patient General Information Nutritional Screening High Risk Diagnosis psychosis Pertinent Medical Hx/Surgical Hx HTN, seizures, BPH, cognitive communication deficit, s/p gastrointesting hemorrhage, quadriplegia, seizure, schizophrenia, Bipolar, depression, anxiety Subjective Information Clif score 12 noted. Per MD note, pt had 10lb wt loss in past one month. Current Diet Order/ Nutrition Support regular Pertinent Medications colace, remeron, seroquel Pertinent Labs 01/09 Na 135, Glucose 112, A1c 5 .5 Nutritional Hx/Data Height 1.88 m Height (Calculated Centimeters) 188.0 Current Weight (lbs) 81.647 kg Weight (Calculated Kilograms) 81.6 Weight (Calculated Grams) 50193.6 [place] Body Weight 190 Body Mass Index (BMI) 23.1 Weight Status Approriate GI Symptoms GI Symptoms None Difficult in: None Skin Integrity/Comment: buttocks with open lesion per nurse note Estimated Nutritional Goals BEE in Kcals: Using Current wt Calories/Kcals/Kg 25-30 Kcals Calculated 4354-7947 Protein: Using Current wt Protein g/k Protein Calculated 82 Fluid: ml 0-2460ml (1ml/kcal) Nutritional Problem No current Nutrition Prob Problem N/A Intervention/Recommendation Comments 1. Continue with current diet as ordered. 2. Monitor PO intake, wt, labs and skin integrity 3. F/U as moderate risk in 3-5 days, -01/15, PO check Expected Outcomes/Goals Expected Outcomes/Goals 1. PO intake to meet at least 75% of nutritional needs. 2. Wt stability, skin integrity to improve, labs to approach WNL.
--- NOTE | 2018-01-18 01:51 | Progress Notes ---
DATE: 01/17/2018 SUBJECTIVE: Chart reviewed and the patient interviewed. Also, discussed the patient's condition with the staff and reviewed records and labs. The patient continued to be easily irritable and he is still in a depressed mood. The patient also is still withdrawn. The patient also did not answer any of my questions today in spite of my trial to speak to him in Hebrew language. He also is still uncooperative and unable to follow directions. Otherwise, the patient is continued to monitor due to compliant with taking medications with no side effects. ASSESSMENT: The patient is still paranoid and psychotic and seems to be in a depressed mood. TREATMENT PLAN: Continue to monitor behavior and condition closely. Also, continue to work on his irritability and agitation and continue to follow up. JOB# [id number]
[2018-01-18] MEDS: Multivitamin w/ Minerals Tab PO SCH (08:12)
[2018-01-18] MEDS: Econazole Nitrate 1% Cream 15 gm Tube TP SCH ×2 (08:14→16:55)
--- NOTE | 2018-01-18 14:18 | General Progress Note ---
Subjective - Review of Systems Service Date: 01/18/18 Subjective: awake and attentive non verbal no distress Objective - Results Result Diagrams: 01/09/18 18:45 01/09/18 18:45 Recent Labs: Laboratory Last Values WBC 7.7 Th/cmm (4.8-10.8) 01/09/18 18:45 RBC 4.64 Mil/cmm (4.30-5.70) 01/09/18 18:45 Hgb 12.7 gm/dL (12-16) 01/09/18 18:45 Hct 38.1 % (41.0-60) L 01/09/18 18:45 MCV 82.1 fl (80-99) 01/09/18 18:45 MCH 27.3 pg (26.0-30.0) 01/09/18 18:45 MCHC Differential 33.2 pg (28.0-36.0) 01/09/18 18:45 RDW 13.5 % (11.5-20.0) 01/09/18 18:45 Plt Count 330 Th/cmm (150-400) 01/09/18 18:45 MPV 7.2 fl 01/09/18 18:45 Neutrophils % 69.7 % (40.0-80.0) 01/09/18 18:45 Lymphocytes % 20.7 % (20.0-50.0) 01/09/18 18:45 Monocytes % 7.6 % (2.0-10.0) 01/09/18 18:45 Eosinophils % 1.4 % (0.0-5.0) 01/09/18 18:45 Basophils % 0.6 % (0.0-2.0) 01/09/18 18:45 Sodium 135 mEq/L (136-145) L 01/09/18 18:45 Potassium 4.0 mEq/L (3.5-5.1) 01/09/18 18:45 Chloride 104 mEq/L (98-107) 01/09/18 18:45 Carbon Dioxide 24.3 mEq/L (21.0-31.0) 01/09/18 18:45 Anion Gap 10.7 (7.0-16.0) 01/09/18 18:45 BUN 12 mg/dL (7-25) 01/09/18 18:45 Creatinine 0.7 mg/dL (0.7-1.3) 01/09/18 18:45 Est GFR ( Amer) > 60.0 ml/min (>90) 01/09/18 18:45 Est GFR (Non-Af Amer) > 60.0 ml/min 01/09/18 18:45 BUN/Creatinine Ratio 17.1 01/09/18 18:45 Glucose 112 mg/dL (70-105) H 01/09/18 18:45 POC Glucose 89 MG/DL (70 - 105) 01/17/18 05:24 Hemoglobin A1c % 5.5 % (4.0-6.0) 01/09/18 18:45 Calcium 9.0 mg/dL (8.6-10.3) 01/09/18 18:45 Total Bilirubin 0.3 mg/dL (0.3-1.0) 01/09/18 18:45 AST 23 U/L (13-39) 01/09/18 18:45 ALT 17 U/L (7-52) 01/09/18 18:45 Alkaline Phosphatase 56 U/L (34-104) 01/09/18 18:45 Total Protein 7.7 gm/dL (6.0-8.3) 01/09/18 18:45 Albumin 3.7 gm/dL (4.2-5.5) L 01/09/18 18:45 Globulin 4.0 gm/dL 01/09/18 18:45 Albumin/Globulin Ratio 0.9 (1.0-1.8) L 01/09/18 18:45 Triglycerides 131 mg/dL (<150) 01/09/18 18:45 Cholesterol 162 mg/dL (<200) 01/09/18 18:45 LDL Cholesterol Direct 113 mg/dL (75-193) 01/09/18 18:45 HDL Cholesterol 23 mg/dL (23-92) 01/09/18 18:45 TSH 2.86 uIU/ml (0.34-5.60) 01/09/18 18:45 Valproic Acid 63.7 ug/mL (50.0-100.0) 01/16/18 07:40 Carbamazepine 9.1 ug/ml (4.0-12.0) 01/16/18 07:40 RPR NONREACTIVE (NONREACTIVE) 01/09/18 18:45 - Physical Exam Vitals and I&O: Vital Signs Temp 98.1 F 01/18/18 14:08 Pulse 91 01/18/18 14:08 Resp 18 01/18/18 14:08 BP 95/62 01/18/18 14:08 Pulse Ox 97 01/18/18 14:08 Intake & Output 01/17/18 01/18/18 01/18/18 18:59 06:59 18:59 Intake Total 480 Balance 480 Intake: Oral 480 Other: # Voids 2 Active Medications: Current Medications Acetaminophen (Tylenol) 650 mg PO Q6HR PRN PRN Reason: Pain or Fever >101 Stop: 03/10/18 20:36 Last Admin: 01/17/18 02:35 Dose: 650 mg Al Hydrox/Mg Hydrox/Simethicone (Maalox) 30 ml PO Q4HR PRN PRN Reason: GI DISTRESS Stop: 03/10/18 20:49 Baclofen (Lioresal) 10 mg PO BID [facility] Stop: 03/11/18 08:59 Last Admin: 01/18/18 08:11 Dose: 10 mg Carbamazepine (Tegretol) 200 mg PO TID [facility]; Protocol Stop: 03/10/18 20:59 Last Admin: 01/18/18 14:03 Dose: 200 mg Divalproex Sodium (Depakote Er) 1,000 mg PO BID [facility]; Protocol Stop: 03/11/18 08:59 Last Admin: 01/18/18 08:09 Dose: 1,000 mg Docusate Sodium (Colace) 100 mg PO DAILY [facility] Stop: 03/11/18 08:59 Last Admin: 01/18/18 08:11 Dose: 100 mg Donepezil HCl (Aricept) 10 mg PO DAILY [facility] Stop: 03/11/18 08:59 Last Admin: 01/18/18 08:11 Dose: 10 mg Econazole Nitrate (Spectazole 1% Cream) 1 appl TP BID [facility] Stop: 03/11/18 08:59 Last Admin: 01/18/18 08:14 Dose: 1 appl Gemfibrozil (Lopid) 600 mg PO HS [facility] Stop: 03/11/18 20:59 Last Admin: 01/17/18 20:38 Dose: 600 mg Lorazepam (Ativan) 0.5 mg PO Q4HR PRN; Protocol PRN Reason: Anxiety Stop: 02/08/18 20:49 Last Admin: 01/13/18 02:47 Dose: 0.5 mg Magnesium Hydroxide (Milk Of Magnesia) 30 ml PO HS PRN PRN Reason: Constipation Stop: 03/10/18 20:36 Mirtazapine (Remeron) 15 mg PO HS [facility]; Protocol Stop: 03/18/18 20:59 Last Admin: 01/17/18 20:38 Dose: 15 mg Quetiapine Fumarate (Seroquel) 150 mg PO DAILY [facility]; Protocol Stop: 03/11/18 08:59 Last Admin: 01/18/18 08:10 Dose: 150 mg Quetiapine Fumarate (Seroquel) 200 mg PO HS [facility]; Protocol Stop: 03/10/18 20:59 Last Admin: 01/17/18 20:39 Dose: 200 mg Tamsulosin HCl (Flomax) 0.4 mg PO HS [facility] Stop: 03/10/18 20:59 Last Admin: 01/17/18 20:39 Dose: 0.4 mg General: No acute distress HEENT: Atraumatic, PERRLA, EOMI Neck: Supple, JVD, Thyromegaly Cardiovascular: Regular rate, Normal S1, Normal S2 Lungs: Clear to auscultation Abdomen: Bowel sounds, Soft Assessment/Plan - Assessment Assessment: 1.SEIZURE DISORDERED. 2.HYPERLIPIDEMIA. 3.BPH. 4.DEMENTIA. 5.PSYCHOSIS. - Plan Plan: continue current treatment Nutritional Asmnt/Malnutr-PDOC - Dietary Evaluation Malnutrition Findings (Please click <Entered> for more info): Nutritional Asmnt/Malnutrition Start: 01/10/18 15: 40 Text: Status: Complete Freq: Protocol: Document 01/10/18 15:40 LCHENG (Rec: 01/10/18 15:57 [email or web address] [email or web address]) Nutritional Asmnt/Malnutrition Patient General Information Nutritional Screening High Risk Diagnosis psychosis Pertinent Medical Hx/Surgical Hx HTN, seizures, BPH, cognitive communication deficit, s/p gastrointesting hemorrhage, quadriplegia, seizure, schizophrenia, Bipolar, depression, anxiety Subjective Information Clif score 12 noted. Per MD note, pt had 10lb wt loss in past one month. Current Diet Order/ Nutrition Support regular Pertinent Medications colace, remeron, seroquel Pertinent Labs 01/09 Na 135, Glucose 112, A1c 5 .5 Nutritional Hx/Data Height 1.88 m Height (Calculated Centimeters) 188.0 Current Weight (lbs) 81.647 kg Weight (Calculated Kilograms) 81.6 Weight (Calculated Grams) 02313.6 [place] Body Weight 190 Body Mass Index (BMI) 23.1 Weight Status Approriate GI Symptoms GI Symptoms None Difficult in: None Skin Integrity/Comment: buttocks with open lesion per nurse note Estimated Nutritional Goals BEE in Kcals: Using Current wt Calories/Kcals/Kg 25-30 Kcals Calculated 5639-6627 Protein: Using Current wt Protein g/k Protein Calculated 82 Fluid: ml 2049-246ml (1ml/kcal) Nutritional Problem No current Nutrition Prob Problem N/A Intervention/Recommendation Comments 1. Continue with current diet as ordered. 2. Monitor PO intake, wt, labs and skin integrity 3. F/U as moderate risk in 3-5 days, -01/15, PO check Expected Outcomes/Goals Expected Outcomes/Goals 1. PO intake to meet at least 75% of nutritional needs. 2. Wt stability, skin integrity to improve, labs to approach WNL.
--- NOTE | 2018-01-18 22:39 | Progress Notes ---
DATE: 01/18/2018 Case was discussed with staff of the patient, reviewed records. He is still depressed, continues to be withdrawn, stayed to himself. When I first entered, he was talking to himself in Georgian, though I tried to talk to him in Georgian, he started staring at me. He is uncooperative, needing redirection. Continues to be paranoid, psychotic, unpredictable and impulsive. He has been compliant with the medication with no side effects, so I did have concern prior when I was treating him because of his very low levels of Depakote and Keppra. He continues to have poor insight. The Depakote level and Keppra level was repeated and is now within normal range. Depakote level is 63.7 and Tegretol level 9.1, which is within acceptable range. RPR nonreactive. He has a high blood sugar, low albumin and the rest of the chemistry panel within normal range. He has low sodium and CBC with low hematocrit and the rest within normal range and we will continue to work with the patient in group therapy, milieu therapy, and adjust the medications as needed. JOB# [id number]
[2018-01-19] MEDS: Multivitamin w/ Minerals Tab PO SCH (09:00)
--- NOTE | 2018-01-19 13:10 | General Progress Note ---
Subjective - Review of Systems Service Date: 01/19/18 Subjective: awake and attentive confused no distress Objective - Results Result Diagrams: 01/09/18 18:45 01/09/18 18:45 Recent Labs: Laboratory Last Values WBC 7.7 Th/cmm (4.8-10.8) 01/09/18 18:45 RBC 4.64 Mil/cmm (4.30-5.70) 01/09/18 18:45 Hgb 12.7 gm/dL (12-16) 01/09/18 18:45 Hct 38.1 % (41.0-60) L 01/09/18 18:45 MCV 82.1 fl (80-99) 01/09/18 18:45 MCH 27.3 pg (26.0-30.0) 01/09/18 18:45 MCHC Differential 33.2 pg (28.0-36.0) 01/09/18 18:45 RDW 13.5 % (11.5-20.0) 01/09/18 18:45 Plt Count 330 Th/cmm (150-400) 01/09/18 18:45 MPV 7.2 fl 01/09/18 18:45 Neutrophils % 69.7 % (40.0-80.0) 01/09/18 18:45 Lymphocytes % 20.7 % (20.0-50.0) 01/09/18 18:45 Monocytes % 7.6 % (2.0-10.0) 01/09/18 18:45 Eosinophils % 1.4 % (0.0-5.0) 01/09/18 18:45 Basophils % 0.6 % (0.0-2.0) 01/09/18 18:45 Sodium 135 mEq/L (136-145) L 01/09/18 18:45 Potassium 4.0 mEq/L (3.5-5.1) 01/09/18 18:45 Chloride 104 mEq/L (98-107) 01/09/18 18:45 Carbon Dioxide 24.3 mEq/L (21.0-31.0) 01/09/18 18:45 Anion Gap 10.7 (7.0-16.0) 01/09/18 18:45 BUN 12 mg/dL (7-25) 08/09/18 18:45 Creatinine 0.7 mg/dL (0.7-1.3) 01/09/18 18:45 Est GFR ( Amer) > 60.0 ml/min (>90) 01/09/18 18:45 Est GFR (Non-Af Amer) > 60.0 ml/min 01/09/18 18:45 BUN/Creatinine Ratio 17.1 01/09/18 18:45 Glucose 112 mg/dL (70-105) H 01/09/18 18:45 POC Glucose 89 MG/DL (70 - 105) 01/17/18 05:24 Hemoglobin A1c % 5.5 % (4.0-6.0) 01/09/18 18:45 Calcium 9.0 mg/dL (8.6-10.3) 01/09/18 18:45 Total Bilirubin 0.3 mg/dL (0.3-1.0) 01/09/18 18:45 AST 23 U/L (13-39) 01/09/18 18:45 ALT 17 U/L (7-52) 01/09/18 18:45 Alkaline Phosphatase 56 U/L (34-104) 01/09/18 18:45 Total Protein 7.7 gm/dL (6.0-8.3) 01/09/18 18:45 Albumin 3.7 gm/dL (4.2-5.5) L 01/09/18 18:45 Globulin 4.0 gm/dL 01/09/18 18:45 Albumin/Globulin Ratio 0.9 (1.0-1.8) L 01/09/18 18:45 Triglycerides 131 mg/dL (<150) 01/09/18 18:45 Cholesterol 162 mg/dL (<200) 01/09/18 18:45 LDL Cholesterol Direct 113 mg/dL (75-193) 01/09/18 18:45 HDL Cholesterol 23 mg/dL (23-92) 01/09/18 18:45 TSH 2.86 uIU/ml (0.34-5.60) 01/09/18 18:45 Valproic Acid 63.7 ug/mL (50.0-100.0) 01/16/18 07:40 Carbamazepine 9.1 ug/ml (4.0-12.0) 01/16/18 07:40 RPR NONREACTIVE (NONREACTIVE) 01/09/18 18:45 - Physical Exam Vitals and I&O: Vital Signs Temp 98.4 F 01/19/18 07:05 Pulse 86 01/19/18 07:05 Resp 19 01/19/18 07:05 BP 114/71 01/19/18 07:05 Pulse Ox 97 01/19/18 07:05 Intake & Output 01/18/18 01/19/18 01/19/18 18:59 06:59 18:59 Intake Total 1400 500 500 Balance 1400 500 500 Intake: Oral 1400 500 500 Other: # Voids 3 3 3 # Bowel Movements 0 0 2 Active Medications: Current Medications Acetaminophen (Tylenol) 650 mg PO Q6HR PRN PRN Reason: Pain or Fever >101 Stop: 03/10/18 20:36 Last Admin: 01/17/18 02:35 Dose: 650 mg Al Hydrox/Mg Hydrox/Simethicone (Maalox) 30 ml PO Q4HR PRN PRN Reason: GI DISTRESS Stop: 03/10/18 20:49 Baclofen (Lioresal) 10 mg PO BID [facility] Stop: 03/11/18 08:59 Last Admin: 01/19/18 08:59 Dose: 10 mg Carbamazepine (Tegretol) 200 mg PO TID [facility]; Protocol Stop: 03/10/18 20:59 Last Admin: 01/19/18 09:00 Dose: 200 mg Divalproex Sodium (Depakote Er) 1,000 mg PO BID [facility]; Protocol Stop: 03/11/18 08:59 Last Admin: 01/19/18 09:01 Dose: 1,000 mg Docusate Sodium (Colace) 100 mg PO DAILY [facility] Stop: 03/11/18 08:59 Last Admin: 01/19/18 09:00 Dose: 100 mg Donepezil HCl (Aricept) 10 mg PO DAILY [facility] Stop: 03/11/18 08:59 Last Admin: 01/19/18 09:00 Dose: 10 mg Econazole Nitrate (Spectazole 1% Cream) 1 appl TP BID [facility] Stop: 03/11/18 08:59 Last Admin: 01/18/18 16:55 Dose: 1 appl Gemfibrozil (Lopid) 600 mg PO HS [facility] Stop: 03/11/18 20:59 Last Admin: 01/18/18 21:09 Dose: 600 mg Lorazepam (Ativan) 0.5 mg PO Q4HR PRN; Protocol PRN Reason: Anxiety Stop: 02/08/18 20:49 Last Admin: 01/18/18 21:09 Dose: 0.5 mg Magnesium Hydroxide (Milk Of Magnesia) 30 ml PO HS PRN PRN Reason: Constipation Stop: 03/10/18 20:36 Mirtazapine (Remeron) 15 mg PO HS [facility]; Protocol Stop: 03/18/18 20:59 Last Admin: 01/18/18 21:09 Dose: 15 mg Quetiapine Fumarate (Seroquel) 150 mg PO DAILY [facility]; Protocol Stop: 03/11/18 08:59 Last Admin: 01/19/18 09:00 Dose: 150 mg Quetiapine Fumarate (Seroquel) 200 mg PO HS [facility]; Protocol Stop: 03/10/18 20:59 Last Admin: 01/18/18 21:09 Dose: 200 mg Tamsulosin HCl (Flomax) 0.4 mg PO HS [facility] Stop: 03/10/18 20:59 Last Admin: 01/18/18 21:09 Dose: 0.4 mg General: No acute distress HEENT: Atraumatic, PERRLA, EOMI Neck: Supple, JVD, Thyromegaly Cardiovascular: Regular rate, Normal S1, Normal S2 Lungs: Clear to auscultation Abdomen: Bowel sounds, Soft Assessment/Plan - Assessment Assessment: 1.SEIZURE DISORDERED. 2.HYPERLIPIDEMIA. 3.BPH. 4.DEMENTIA. 5.PSYCHOSIS. - Plan Plan: continue current treatment Nutritional Asmnt/Malnutr-PDOC - Dietary Evaluation Malnutrition Findings (Please click <Entered> for more info): Nutritional Asmnt/Malnutrition Start: 01/10/18 15: 40 Text: Status: Complete Freq: Protocol: Document 01/10/18 15:40 LCYOLANDAG (Rec: 01/10/18 15:57 [email or web address]) Nutritional Asmnt/Malnutrition Patient General Information Nutritional Screening High Risk Diagnosis psychosis Pertinent Medical Hx/Surgical Hx HTN, seizures, BPH, cognitive communication deficit, s/p gastrointesting hemorrhage, quadriplegia, seizure, schizophrenia, Bipolar, depression, anxiety Subjective Information Clif score 12 noted. Per MD note, pt had 10lb wt loss in past one month. Current Diet Order/ Nutrition Support regular Pertinent Medications colace, remeron, seroquel Pertinent Labs 01/09 Na 135, Glucose 112, A1c 5 .5 Nutritional Hx/Data Height 1.88 m Height (Calculated Centimeters) 188.0 Current Weight (lbs) 81.647 kg Weight (Calculated Kilograms) 81.6 Weight (Calculated Grams) 95147.6 [place] Body Weight 190 Body Mass Index (BMI) 23.1 Weight Status Approriate GI Symptoms GI Symptoms None Difficult in: None Skin Integrity/Comment: buttocks with open lesion per nurse note Estimated Nutritional Goals BEE in Kcals: Using Current wt Calories/Kcals/Kg 25-30 Kcals Calculated 1546-5509 Protein: Using Current wt Protein g/k Protein Calculated 82 Fluid: ml 2049-246ml (1ml/kcal) Nutritional Problem No current Nutrition Prob Problem N/A Intervention/Recommendation Comments 1. Continue with current diet as ordered. 2. Monitor PO intake, wt, labs and skin integrity 3. F/U as moderate risk in 3-5 days, -01/15, PO check Expected Outcomes/Goals Expected Outcomes/Goals 1. PO intake to meet at least 75% of nutritional needs. 2. Wt stability, skin integrity to improve, labs to approach WNL.
[2018-01-19] MEDS: Econazole Nitrate 1% Cream 15 gm Tube TP SCH ×2 (16:09→18:50)
--- NOTE | 2018-01-19 18:10 | Progress Notes ---
DATE: 01/19/[address] Garza. Case was discussed with staff of the patient, reviewed records. The patient continues to be internally preoccupied, not talking, feeding himself, yet he has a lot of spillover on his chest. I felt he vomited, but the staff tell he feeds himself and because of the contracture, he can do it twice, so spilling food all over his body. He continues to have poor insight, unpredictable and impulsive, not willing to participate in meaningful conversations though I hear him speaking in [place], but he would not talk to me though I can speak the language and he would not answer any of my questions, unpredictable, impulsive, needing redirection. We will continue outpatient group therapy, milieu therapy, and adjust the medication as needed. [facility]# [id number]
[2018-01-20] MEDS: Econazole Nitrate 1% Cream 15 gm Tube TP SCH ×2 (09:07→16:47)
[2018-01-20] MEDS: Multivitamin w/ Minerals Tab PO SCH (09:08)
--- NOTE | 2018-01-20 11:27 | Progress Notes ---
DATE: 01/20/2018 PSYCHIATRIC PROGRESS NOTE SUBJECTIVE: Chart reviewed and the patient interviewed. Also discussed the patient's condition with the staff and reviewed records and labs. The patient remains depressed and he is still selectively mute. The patient also is interacting minimally with others. The patient also is restless and is anxious. The patient also saying today he seems to be more talkative and he is expressing himself more. The patient said that he is depressed because he is unable to move his legs and hands are contracted. He seems to be slightly calmer today and seems to be less agitated. The patient also is sleeping slightly better, although still seems to be sleeping more during the day and less at night. ASSESSMENT: The patient is still anxious and is still in a depressed mood. TREATMENT PLAN: We will monitor the patient's behavior closely. Also, we will decrease Seroquel to 100 mg during the day, hopefully to help patient thought to be sleepy at night. Also, we will continue monitoring his behavior and his medications closely and work on his ineffective coping. Also, physical therapy to continue. JOB# [id number]
--- NOTE | 2018-01-20 18:04 | Progress Notes ---
DATE: 01/20/2018 ADDENDUM Depakote blood level that was done on 01/16/2018 came back to be 63.7 and a carbamazepine level 9.9, and both are within therapeutic level. JOB# [id number]
--- NOTE | 2018-01-20 20:56 | Internal Medicine Prog Note ---
Internal Medicine Subjective - Subjective Service Date: 01/20/18 Patient seen and examined:: without staff Patient is:: awake, non-verbal, in bed, confused Per staff patient has:: no adverse event Internal Medicine Objective - Results Result Diagrams: 01/09/18 18:45 01/09/18 18:45 Recent Labs: Laboratory Last Values WBC 7.7 Th/cmm (4.8-10.8) 01/09/18 18:45 RBC 4.64 Mil/cmm (4.30-5.70) 01/09/18 18:45 Hgb 12.7 gm/dL (12-16) 01/09/18 18:45 Hct 38.1 % (41.0-60) L 01/09/18 18:45 MCV 82.1 fl (80-99) 01/09/18 18:45 MCH 27.3 pg (26.0-30.0) 01/09/18 18:45 MCHC Differential 33.2 pg (28.0-36.0) 01/09/18 18:45 RDW 13.5 % (11.5-20.0) 01/09/18 18:45 Plt Count 330 Th/cmm (150-400) 01/09/18 18:45 MPV 7.2 fl 01/09/18 18:45 Neutrophils % 69.7 % (40.0-80.0) 01/09/18 18:45 Lymphocytes % 20.7 % (20.0-50.0) 01/09/18 18:45 Monocytes % 7.6 % (2.0-10.0) 01/09/18 18:45 Eosinophils % 1.4 % (0.0-5.0) 01/09/18 18:45 Basophils % 0.6 % (0.0-2.0) 01/09/18 18:45 Sodium 135 mEq/L (136-145) L 01/09/18 18:45 Potassium 4.0 mEq/L (3.5-5.1) 01/09/18 18:45 Chloride 104 mEq/L (98-107) 01/09/18 18:45 Carbon Dioxide 24.3 mEq/L (21.0-31.0) 01/09/18 18:45 Anion Gap 10.7 (7.0-16.0) 01/09/18 18:45 BUN 12 mg/dL (7-25) 01/09/18 18:45 Creatinine 0.7 mg/dL (0.7-1.3) 01/09/18 18:45 Est GFR ( Amer) > 60.0 ml/min (>90) 01/09/18 18:45 Est GFR (Non-Af Amer) > 60.0 ml/min 01/09/18 18:45 BUN/Creatinine Ratio 17.1 01/09/18 18:45 Glucose 112 mg/dL (70-105) H 01/09/18 18:45 POC Glucose 89 MG/DL (70 - 105) 01/17/18 05:24 Hemoglobin A1c % 5.5 % (4.0-6.0) 01/09/18 18:45 Calcium 9.0 mg/dL (8.6-10.3) 01/09/18 18:45 Total Bilirubin 0.3 mg/dL (0.3-1.0) 01/09/18 18:45 AST 23 U/L (13-39) 01/09/18 18:45 ALT 17 U/L (7-52) 01/09/18 18:45 Alkaline Phosphatase 56 U/L (34-104) 01/09/18 18:45 Total Protein 7.7 gm/dL (6.0-8.3) 01/09/18 18:45 Albumin 3.7 gm/dL (4.2-5.5) L 01/09/18 18:45 Globulin 4.0 gm/dL 01/09/18 18:45 Albumin/Globulin Ratio 0.9 (1.0-1.8) L 01/09/18 18:45 Triglycerides 131 mg/dL (<150) 01/09/18 18:45 Cholesterol 162 mg/dL (<200) 01/09/18 18:45 LDL Cholesterol Direct 113 mg/dL (75-193) 01/09/18 18:45 HDL Cholesterol 23 mg/dL (23-92) 01/09/18 18:45 TSH 2.86 uIU/ml (0.34-5.60) 01/09/18 18:45 Valproic Acid 63.7 ug/mL (50.0-100.0) 01/16/18 07:40 Carbamazepine 9.1 ug/ml (4.0-12.0) 01/16/18 07:40 RPR NONREACTIVE (NONREACTIVE) 01/09/18 18:45 - Physical Exam Vitals and I&O: Vital Signs Temp 98.5 F 01/20/18 14:26 Pulse 94 01/20/18 14:26 Resp 18 01/20/18 14:26 BP 104/45 01/20/18 14:26 Pulse Ox 95 01/20/18 14:26 Intake & Output 01/20/18 01/20/18 01/21/18 06:59 18:59 06:59 Other: # Voids 4 # Bowel Movements 1 Active Medications: Current Medications Acetaminophen (Tylenol) 650 mg PO Q6HR PRN PRN Reason: Pain or Fever >101 Stop: 03/10/18 20:36 Last Admin: 01/19/18 18:04 Dose: 650 mg Al Hydrox/Mg Hydrox/Simethicone (Maalox) 30 ml PO Q4HR PRN PRN Reason: GI DISTRESS Stop: 03/10/18 20:49 Baclofen (Lioresal) 10 mg PO BID [facility] Stop: 03/11/18 08:59 Last Admin: 01/20/18 16:47 Dose: 10 mg Carbamazepine (Tegretol) 200 mg PO TID [facility]; Protocol Stop: 03/10/18 20:59 Last Admin: 01/20/18 20:21 Dose: 200 mg Divalproex Sodium (Depakote Er) 1,000 mg PO BID [facility]; Protocol Stop: 03/11/18 08:59 Last Admin: 01/20/18 16:47 Dose: 1,000 mg Docusate Sodium (Colace) 100 mg PO DAILY [facility] Stop: 03/11/18 08:59 Last Admin: 01/20/18 09:07 Dose: 100 mg Donepezil HCl (Aricept) 10 mg PO DAILY [facility] Stop: 03/11/18 08:59 Last Admin: 01/20/18 09:07 Dose: 10 mg Econazole Nitrate (Spectazole 1% Cream) 1 appl TP BID [facility] Stop: 03/11/18 08:59 Last Admin: 01/20/18 16:47 Dose: Not Given Gemfibrozil (Lopid) 600 mg PO HS [facility] Stop: 03/11/18 20:59 Last Admin: 01/20/18 20:22 Dose: 600 mg Lorazepam (Ativan) 0.5 mg PO Q4HR PRN; Protocol PRN Reason: Anxiety Stop: 02/08/18 20:49 Last Admin: 01/18/18 21:09 Dose: 0.5 mg Magnesium Hydroxide (Milk Of Magnesia) 30 ml PO HS PRN PRN Reason: Constipation Stop: 03/10/18 20:36 Mirtazapine (Remeron) 15 mg PO HS TAMIKO; Protocol Stop: 03/18/18 20:59 Last Admin: 01/20/18 20:21 Dose: 15 mg Quetiapine Fumarate (Seroquel) 200 mg PO HS TAMIKO; Protocol Stop: 03/10/18 20:59 Last Admin: 01/20/18 20:22 Dose: 200 mg Quetiapine Fumarate (Seroquel) 100 mg PO DAILY TAMIKO; Protocol Stop: 03/21/18 08:59 Last Admin: 01/20/18 09:08 Dose: 100 mg Tamsulosin HCl (Flomax) 0.4 mg PO HS TAMIKO Stop: 03/10/18 20:59 Last Admin: 01/20/18 20:21 Dose: 0.4 mg General: demented HEENT: NC/AT, PERRLA, EOMI, anicteric sclerae, throat clear Neck: Supple, No JVD, No thyromegaly, +2 carotid pulse wo bruit, No LAD Lungs: CTAB Cardiovascular: Normal S1, Normal S2, without murmur Abdomen: soft, non-tender, non-distended Neurological: no change Internal Medicine Assmt/Plan - Assessment Assessment: 1.SEIZURE DISORDERED. 2.HYPERLIPIDEMIA. 3.BPH. 4.DEMENTIA. 5.PSYCHOSIS. - Plan Plan: CONTINUE ON CURRENT MEDICATION AND DIET. Nutritional Asmnt/Malnutr-PDOC - Dietary Evaluation Malnutrition Findings (Please click <Entered> for more info): Nutritional Asmnt/Malnutrition Start: 01/10/18 15: 40 Text: Status: Complete Freq: Protocol: Document 01/10/18 15:40 LCHENG (Rec: 01/10/18 15:57 [email or web address]) Nutritional Asmnt/Malnutrition Patient General Information Nutritional Screening High Risk Diagnosis psychosis Pertinent Medical Hx/Surgical Hx HTN, seizures, BPH, cognitive communication deficit, s/p gastrointesting hemorrhage, quadriplegia, seizure, schizophrenia, Bipolar, depression, anxiety Subjective Information Clif score 12 noted. Per MD note, pt had 10lb wt loss in past one month. Current Diet Order/ Nutrition Support regular Pertinent Medications colace, remeron, seroquel Pertinent Labs 01/09 Na 135, Glucose 112, A1c 5 .5 Nutritional Hx/Data Height 1.88 m Height (Calculated Centimeters) 188.0 Current Weight (lbs) 81.647 kg Weight (Calculated Kilograms) 81.6 Weight (Calculated Grams) 57684.6 Melvin Body Weight 190 Body Mass Index (BMI) 23.1 Weight Status Approriate GI Symptoms GI Symptoms None Difficult in: None Skin Integrity/Comment: buttocks with open lesion per nurse note Estimated Nutritional Goals BEE in Kcals: Using Current wt Calories/Kcals/Kg 25-30 Kcals Calculated 3194-3191 Protein: Using Current wt Protein g/k Protein Calculated 82 Fluid: ml 0-2460ml (1ml/kcal) Nutritional Problem No current Nutrition Prob Problem N/A Intervention/Recommendation Comments 1. Continue with current diet as ordered. 2. Monitor PO intake, wt, labs and skin integrity 3. F/U as moderate risk in 3-5 days, -01/15, PO check Expected Outcomes/Goals Expected Outcomes/Goals 1. PO intake to meet at least 75% of nutritional needs. 2. Wt stability, skin integrity to improve, labs to approach WNL.
--- NOTE | 2018-01-21 07:40 | Discharge Summary ---
DATE OF DISCHARGE: 01/21/2018 DATE OF DISCHARGE: 01/21/2018. FINAL DIAGNOSIS AND PRIMARY DIAGNOSIS: Depressive disorder, unspecified, with psychotic features. SECONDARY DIAGNOSES: 1. Benign prostatic hypertrophy. 2. Hyperlipidemia. 3. Seizure disorder. REASON FOR HOSPITALIZATION: The patient was admitted to the hospital from [facility] because of agitation and the patient was throwing food trays. He also lost a lot of weight in a short period of time. HOSPITAL COURSE: The patient continued to be in a depressed mood and anxious. The patient also was feeling hopeless and helpless. He also was selectively mute. The patient continued to take Tegretol and Depakote. The patient also was given Remeron and dose adjusted to ____ mg at bedtime and Seroquel 100 mg in the morning and 400 mg at bedtime. Gradually, the patient's affect was brighter. The patient was less irritable and less agitated. Also, was interacting more with peers and with others. The patient was not suicidal or homicidal, and he was discharged from the hospital. He went back to [facility]. PHYSICAL EXAMINATION: The patient came as mentioned under axis III and secondary diagnoses. The patient had no major medical problems while in the hospital. AFTER DISCHARGE PLANS: The patient discharged from the hospital with plans to continue his treatment [facility]. EXPECTED OUTCOME AFTER DISCHARGE: Fair if the patient continues with his outpatient treatment and continued to take his psychotropic medications. [facility]# [id number]
[2018-01-21] MEDS: Multivitamin w/ Minerals Tab PO SCH (08:59)
[2018-01-21] MEDS: Econazole Nitrate 1% Cream 15 gm Tube TP SCH (10:42)
== END 2018-01-21 11:15 | DRG 885 ==
LOC: ER 18:07 → GERO 19:50 → TELE 01-10 09:47 → GERO2 01-10 09:56
PROVIDERS: ADMIT Psychiatry & Neurology Psychiatry; ATTEND Psychiatry & Neurology Psychiatry
DX: F32.3 Major depressive disorder, single episode, severe with psychotic features (principal); G82.50 Quadriplegia, unspecified; I10 Essential (primary) hypertension; N40.0 Benign prostatic hyperplasia without lower urinary tract symptoms; G40.909 Epilepsy, unspecified, not intractable, without status epilepticus; F41.9 Anxiety disorder, unspecified; E78.5 Hyperlipidemia, unspecified; F03.90 Unspecified dementia, unspecified severity, without behavioral disturbance, psychotic disturbance, mood disturbance, and anxiety; F29 Unspecified psychosis not due to a substance or known physiological condition
CPT/HCPCS: 36415-UA; 80053-TC; 80061-TC; 80156-TC; 80164-TC; 82948-90; 83036-90; 84443-TC; 85025-TC; 86592-TC; 93005; Z7610